=== PATIENT | female | born 1970 | race Two or more races ===

== ENCOUNTER → 2016-05-11 | Outpatient (CLI) | payer BC ==
--- NOTE | 2016-05-12 08:50 | MM ---
Reason for exam: screening (asymptomatic). History: Patient is postmenopausal and is nulliparous. Family history of breast cancer in maternal aunt. Physical Findings: A clinical breast exam by your physician is recommended on an annual basis and results should be correlated with mammographic findings. MG Screening Mammo w CAD Bilateral CC and MLO view(s) were taken. There are scattered fibroglandular densities. No significant changes when compared with prior studies. ASSESSMENT: Benign, BI-RAD 2 RECOMMENDATION: Routine screening mammogram of both breasts in 1 year.
== END ==
LOC: RADMAMWWP 13:04
PROVIDERS: ATTEND Family Medicine
DX: Z12.31 Encounter for screening mammogram for malignant neoplasm of breast (principal)

== ENCOUNTER → 2017-05-02 | Outpatient (CLI) | payer BC ==
--- NOTE | 2017-05-02 08:07 | CT ---
EXAMINATION TYPE: CT abdomen pelvis wo con DATE OF EXAM: 05/02/2017 COMPARISON: NONE HISTORY: abn US, bloating CT DLP: 1370 mGycm Examination of the solid and hollow viscera is limited given the lack of contrast. FINDINGS: LUNG BASES: No evidence for nodule. No evidence for infiltrate. LIVER/GB: Mild hepatic steatosis suggested. The gallbladder is unremarkable. No space-occupying hepat ic lesion. PANCREAS: No pancreatic mass identified. No inflammatory process seen. SPLEEN: The spleen is mildly enlarged at 13.2 cm craniocaudal dimension. No intrasplenic lesions seen . ADRENALS: No adrenal nodules identified. No evidence for thickening. KIDNEYS: No evidence for renal mass. No nephrolithiasis. No hydronephrosis. BOWEL: Appendix has a normal appearance. No evidence of bowel obstruction. No inflammatory process. Lymph nodes: No evidence for adenopathy greater than 1 cm. Abdominal aorta: Atheromatous changes seen. No evidence for aneurysm. Genital organs: No significant abnormality. Other: No significant abnormality. IMPRESSION: 1. Mild splenomegaly. 2. Fatty hepatic infiltration.
== END | disposition home or self-care (01) ==
LOC: RADCTMAIN 07:31
PROVIDERS: ATTEND Family Medicine
DX: R16.1 Splenomegaly, not elsewhere classified (principal); K76.0 Fatty (change of) liver, not elsewhere classified
CPT/HCPCS: 74176

== ENCOUNTER → 2018-01-09 | Outpatient (CLI) | payer BC ==
--- NOTE | 2018-01-09 23:32 | US ---
EXAMINATION TYPE: US kidneys/renal and bladder DATE OF EXAM: 01/09/2018 COMPARISON: 04/10/2017 CLINICAL HISTORY: 47-year-old female N18.3 Chronic kidney disease, stage 3. Abnormal labs TECHNIQUE: Multiple sonographic images of the kidneys and bladder are obtained. EXAM MEASUREMENTS: Right Kidney: 10.5 x 4.8 x 4.7 cm Left Kidney: 9.2 x 4.0 x 3.9 cm Post Void Residual Volume: 4.6 mL Right Kidney: No hydronephrosis. Left Kidney: There may be mild cortical thinning. No hydronephrosis. Bladder: wnl Bilateral Jets seen: Yes Normal Post Void Residual: Yes Incidental- echogenic liver and enlarged appearing spleen. IMPRESSION: 1. No hydronephrosis. 2. Echogenic liver suggesting hepatic steatosis. The spleen also appears slightly enlarged. A measure ment was not obtained.
== END ==
LOC: RADUSWWP 16:09
PROVIDERS: ATTEND Family Medicine
DX: N18.3 Chronic kidney disease, stage 3 (moderate) (principal)
CPT/HCPCS: 76770

== ENCOUNTER 2018-02-03 19:42 | Inpatient (IN) | payer BC ==
[2018-02-03] MEDS ORDERED: VANCOMYCIN 2,000 MG in SODIUM CHLORIDE 0.9% 500 ML IVPB STA (21:54)
--- NOTE | 2018-02-03 21:58 | ED ---
General Adult HPI - General Chief complaint: Wound/Laceration Stated complaint: Lt great toe infection Source: patient Mode of arrival: ambulatory Limitations: no limitations - History of Present Illness Initial comments: Dictation was produced using Pyreg dictation software. please excuse any grammatical, word or spelling errors. Chief Complaint: 47-year-old female with multiple comorbidities presents with left great toe wound. History of Present Illness: Patient has been managed outpatient. She was scheduled to have a wound clinic appointment. She states that she's been having constitutional symptoms. She states that her total is getting worse more painful. She also having fevers and chills. Pulmonary come to the emergency department. Patient's past medical history of asthma and diabetes. The ROS documented in this emergency department record has been reviewed and confirmed by me. Those systems with pertinent positive or negative responses have been documented in the HPI. All other systems are other negative and/or noncontributory. - Related Data Allergies Allergy/AdvReac Type Severity Reaction Status Date / Time banana Allergy Nausea & Verified 02/03/18 19:49 Vomiting latex Allergy Rash/Hives Verified 02/03/18 19:49 mushroom Allergy Nausea & Verified 02/03/18 19:49 Vomiting Penicillins Allergy Rash/Hives Verified 02/03/18 19:49 Review of Systems ROS Statement: Those systems with pertinent positive or pertinent negative responses have been documented in the HPI. ROS Other: All systems not noted in ROS Statement are negative. Past Medical History Past Medical History: Asthma, Diabetes Mellitus History of Any Multi-Drug Resistant Organisms: None Reported Additional Past Surgical History / Comment(s): fifth digit amputation Past Psychological History: No Psychological Hx Reported Smoking Status: Never smoker Past Alcohol Use History: Rare Past Drug Use History: None Reported General Exam - General Exam Comments Initial Comments: PHYSICAL EXAM: General Impression: Alert and oriented x3, not in acute distress HEENT: Normocephalic atraumatic, extra-ocular movements intact, pupils equal and reactive to light bilaterally, mucous membranes moist. Cardiovascular: Heart regular rate and rhythm, S1&S2 audible, no murmurs, rubs or gallops Chest: Lungs clear to auscultation bilaterally, no rhonchi, no wheeze, no rales Abdomen: Bowel sounds present, abdomen soft, non-tender, non-distended, no organomegaly Musculoskeletal: Pulses present and equal in all extremities, no peripheral edema Motor: Power 5/5 bilaterally, no focal deficits noted Neurological: CN II-XII grossly intact, no focal motor or sensory deficits noted Skin: Intact with no visualized rashes Psych: Normal affect and mood Left foot: Large wound to the left great toe with open wound to the medial aspect. Metatarsal heads are erythematous. Limitations: no limitations Course Vital Signs 02/03/18 02/03/18 02/03/18 19:45 21:14 23:52 Temperature 99.4 F 100.6 F H 99.1 F Pulse Rate 103 H 89 90 Respiratory 16 16 16 Rate Blood Pressure 129/72 152/69 148/66 O2 Sat by Pulse 99 97 97 Oximetry Medical Decision Making - Medical Decision Making ED course:-year-old female presents with toe wound failed outpatient treatment. Vital signs upon arrival shows low-grade fever of 100.6, rest of vital signs within normal limits. Click or presentation consistent with toe infection. Differential includes osseum myelitis versus gangrene. Patient started on antibiotics. Labs and x-ray.Laboratory evaluation obtained. Leukocytosis of 11.9. Hemoglobin stable. Rest of CBC unremarkable. Coag panel is unremarkable. Metabolic panel shows hyperglycemia 386. No acidosis noted however there is a mild gap. Creatinine is 1.55. No old renal markers for comparison. Urinalysis shows 4+ glucose. Rest of urinalysis is negative. Patient started on antibiotics to treat osteomyelitis. Patient to be admitted. She is likely candidate for podiatry versus orthopedic consultation for possible admission.X-ray obtained showing findings consistent with osteomyelitis - Lab Data Result diagrams: 02/03/18 22:14 02/03/18 22:14 Lab Results 02/03/18 02/03/18 02/03/18 Range/Units 22:14 22:14 22:14 WBC 11.9 H (3.8-10.6) k/uL RBC 3.56 L (3.80-5.40) m/uL Hgb 11.2 L (11.4-16.0) gm/dL Hct 32.2 L (34.0-46.0) % MCV 90.4 (80.0-100.0) fL MCH 31.4 (25.0-35.0) pg MCHC 34.8 (31.0-37.0) g/dL RDW 12.8 (11.5-15.5) % Plt Count 262 (150-450) k/uL Neutrophils % 82 % Lymphocytes % 10 % Monocytes % 6 % Eosinophils % 1 % Basophils % 0 % Neutrophils # 9.7 H (1.3-7.7) k/uL Lymphocytes # 1.2 (1.0-4.8) k/uL Monocytes # 0.7 (0-1.0) k/uL Eosinophils # 0.1 (0-0.7) k/uL Basophils # 0.0 (0-0.2) k/uL PT (9.0-12.0) sec INR (<1.2) APTT (22.0-30.0) sec Sodium 134 L (137-145) mmol/L Potassium 3.6 (3.5-5.1) mmol/L Chloride 92 L (98-107) mmol/L Carbon Dioxide 29 (22-30) mmol/L Anion Gap 13 mmol/L BUN 47 H (7-17) mg/dL Creatinine 1.55 H (0.52-1.04) mg/dL Est GFR (CKD-EPI)AfAm 45 (>60 ml/min/1.73 sqM) Est GFR (CKD-EPI)NonAf 39 (>60 ml/min/1.73 sqM) Glucose 386 H (74-99) mg/dL Plasma Lactic Acid Ramon 1.2 (0.7-2.0) mmol/L Calcium 9.2 (8.4-10.2) mg/dL Total Bilirubin 0.6 (0.2-1.3) mg/dL AST 20 (14-36) U/L ALT 28 (9-52) U/L Alkaline Phosphatase 97 (38-126) U/L Total Protein 6.9 (6.3-8.2) g/dL Albumin 3.6 (3.5-5.0) g/dL Urine Color Urine Appearance (Clear) Urine pH (5.0-8.0) Ur Specific [place] (1.001-1.035) Urine Protein (Negative) Urine Glucose (UA) (Negative) Urine Ketones (Negative) Urine Blood (Negative) Urine Nitrite (Negative) Urine Bilirubin (Negative) Urine Urobilinogen (<2.0) mg/dL Ur Leukocyte Esterase (Negative) Urine RBC (0-5) /hpf Urine WBC (0-5) /hpf Ur Squamous Epith Cells (0-4) /hpf Urine Bacteria (None) /hpf Urine Mucus (None) /hpf 02/03/18 02/03/18 Range/Units 22:14 22:22 WBC (3.8-10.6) k/uL RBC (3.80-5.40) m/uL Hgb (11.4-16.0) gm/dL Hct (34.0-46.0) % MCV (80.0-100.0) fL MCH (25.0-35.0) pg MCHC (31.0-37.0) g/dL RDW (11.5-15.5) % Plt Count (150-450) k/uL Neutrophils % % Lymphocytes % % Monocytes % % Eosinophils % % Basophils % % Neutrophils # (1.3-7.7) k/uL Lymphocytes # (1.0-4.8) k/uL Monocytes # (0-1.0) k/uL Eosinophils # (0-0.7) k/uL Basophils # (0-0.2) k/uL PT 10.9 (9.0-12.0) sec INR 1.1 (<1.2) APTT 27.0 (22.0-30.0) sec Sodium (137-145) mmol/L Potassium (3.5-5.1) mmol/L Chloride (98-107) mmol/L Carbon Dioxide (22-30) mmol/L Anion Gap mmol/L BUN (7-17) mg/dL Creatinine (0.52-1.04) mg/dL Est GFR (CKD-EPI)AfAm (>60 ml/min/1.73 sqM) Est GFR (CKD-EPI)NonAf (>60 ml/min/1.73 sqM) Glucose (74-99) mg/dL Plasma Lactic Acid Ramon (0.7-2.0) mmol/L Calcium (8.4-10.2) mg/dL Total Bilirubin (0.2-1.3) mg/dL AST (14-36) U/L ALT (9-52) U/L Alkaline Phosphatase (38-126) U/L Total Protein (6.3-8.2) g/dL Albumin (3.5-5.0) g/dL Urine Color Yellow Urine Appearance Clear (Clear) Urine pH 5.5 (5.0-8.0) Ur Specific [place] 1.012 (1.001-1.035) Urine Protein Trace H (Negative) Urine Glucose (UA) 4+ H (Negative) Urine Ketones Negative (Negative) Urine Blood Trace H (Negative) Urine Nitrite Negative (Negative) Urine Bilirubin Negative (Negative) Urine Urobilinogen <2.0 (<2.0) mg/dL Ur Leukocyte Esterase Negative (Negative) Urine RBC 1 (0-5) /hpf Urine WBC 1 (0-5) /hpf Ur Squamous Epith Cells 1 (0-4) /hpf Urine Bacteria Rare H (None) /hpf Urine Mucus Rare H (None) /hpf Disposition Clinical Impression: Osteomyelitis Disposition: ADMITTED IP TO THIS [facility] Condition: Fair Referrals: Shari Rincon MD [Primary Care Provider] - 1-2 days Decision Time: 00:15
[2018-02-03] MEDS ORDERED: CEFEPIME 2 GM in SODIUM CHLORIDE 0.9% 50 ML IVPB STA (22:25)
--- NOTE | 2018-02-03 22:26 | XR ---
EXAMINATION TYPE: XR foot complete LT DATE OF EXAM: 02/03/2018 COMPARISON: NONE HISTORY: Foot pain TECHNIQUE: 3 views FINDINGS: There are plantar and Achilles calcaneal spurs. There is soft tissue swelling of the big to e. There are some destructive changes in the distal phalanx of the big toe. There is soft tissue air around the IP joint and proximal phalanx of the big toe. IMPRESSION: Soft tissue air with soft tissue swelling and destructive changes consistent with osteomy elitis of the distal phalanx big toe left foot.
[2018-02-03 22:27] LABS: Basophils % (A) 0 %; Eosinophils # (A) 0.1 k/uL (0-0.7); Eosinophils % (A) 1 %; HCT 32.2 % (34.0-46.0); HGB 11.2 gm/dL (11.4-16.0); Lymphocytes # (A) 1.2 k/uL (1.0-4.8); Lymphocytes % (A) 10 %; MCH 31.4 pg (25.0-35.0); MCHC 34.8 g/dL (31.0-37.0); MCV 90.4 fL (80.0-100.0); Mean Platelet Volume 6.9; Monocytes # (A) 0.7 k/uL (0-1.0); Monocytes % (A) 6 %; Neutrophils # (A) 9.7 k/uL (1.3-7.7); Neutrophils % (A) 82 %; Platelet Count 262 k/uL (150-450); RBC 3.56 m/uL (3.80-5.40); RDW 12.8 % (11.5-15.5); WBC 11.9 k/uL (3.8-10.6)
[2018-02-03] MEDS: SODIUM CHLORIDE 0.9% 500 ML 500 ML IV SCH ×2 (22:29→23:01)
[2018-02-03 22:35] LABS: INR 1.1 (<1.2); Prothrombin Time 10.9 sec (9.0-12.0)
[2018-02-03 22:46] LABS: Albumin 3.6 g/dL (3.5-5.0); Calcium 9.2 mg/dL (8.4-10.2); Potassium 3.6 mmol/L (3.5-5.1); Total Bilirubin 0.6 mg/dL (0.2-1.3); Total Protein 6.9 g/dL (6.3-8.2)
[2018-02-03 23:23] LABS: Appearance,Urine Clear (Clear); Bacteria,Urine Rare /hpf; Bilirubin,Urine Negative (Negative); Blood,Urine Trace (Negative); Color,Urine Yellow; Glucose,Urine (UA) 4+ (Negative); Ketones,Urine Negative (Negative); Leukocyte Esterase,Urine Negative (Negative); Mucus,Urine Rare /hpf; Nitrite,Urine Negative (Negative); PH, Urine 5.5 (5.0-8.0); Protein,Urine Trace (Negative); RBC,Urine 1 /hpf (0-5); Specific Gravity,Urine 1.012 (1.001-1.035); Squamous Epithelial Cell,Urine 1 /hpf (0-4); Urobilinogen,Urine <2.0 mg/dL (<2.0); WBC,Urine 1 /hpf (0-5)
[2018-02-03] MEDS ORDERED: MORPHINE SULFATE 2 MG/ML SYRINGE IVP STA (23:54)
[2018-02-04] MEDS ORDERED: NALOXONE 0.4 MG/ML 1 ML VIAL IV PRN (00:13)
[2018-02-04] MEDS ORDERED: INSULIN REGULAR 100 UNIT/ML VIAL IV ONE (00:30)
[2018-02-04 01:52] LABS: Glucose,Whole Blood 285 mg/dL (75-99)
[2018-02-04] MEDS ORDERED: INSULIN ASPART 100 UNIT/ML 1 ML 10 ML VIAL SQ ONE (01:56)
[2018-02-04 02:10] VITALS: BMI 42.3
[2018-02-04] MEDS: HYDROcodone/APAP 5-325MG 1 EACH TAB PO PRN ×3 (02:14→17:51)
[2018-02-04 08:17] LABS: Glucose,Whole Blood 277 mg/dL (75-99)
[2018-02-04] MEDS: INSULIN ASPART 100 UNIT/ML 1 ML 10 ML VIAL SQ SCH ×4 (08:46→21:52)
[2018-02-04] MEDS: REPAGLINIDE 1 MG TAB PO SCH ×2 (13:10→17:51)
[2018-02-04 13:16] LABS: Glucose,Whole Blood 297 mg/dL (75-99)
--- NOTE | 2018-02-04 13:50 | P.HPIM ---
History of Present Illness H&P Date: 02/04/18 This is a 47-year-old female who presented to the emergency room complaining of pain in her left great toe. Patient states that she has been treated outpatient leave for an infection of the left great toe. However yesterday the pain increased unable to tolerate weight bearing and also complains of a fever at that time. Patient is scheduled to see wound care, however, due to a back log she is on a waiting list. Patient has a history of diabetes and a history of amputation to the right fifth toe approximately 5 years ago. She states that her diabetes has been under control her last hemoglobin A1c was 7.2. 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 She states that she does have good shoes, however, within the callus started she did change shoes to help relieve the pressure. X- ray of the foot shows soft tissue air with soft tissue swelling and destructive changes consistent with osteomyelitis of the distal phalanx good toe left foot. Patient presents today resting comfortably without any complaints. Dressing to the left great toe in place. Dressing removed showing edematous, ecchymosis, open sore to left great toe with induration approximately 2 cm in the dorsal foot area patient denies any chest pain, difficulty breathing, nausea or vomiting. Patient denies any fevers at this time. Review of Systems Constitutional: Reports fever, Denies malaise, Denies weakness Ears, nose, mouth and throat: Denies headache, Denies sinus pain, Denies sore throat, Denies vertigo Cardiovascular: Denies chest pain, Denies dyspnea on exertion, Denies irregular heart beat, Denies lightheadedness, Denies palpitations Respiratory: Denies cough, Denies dyspnea Gastrointestinal: Denies change in bowel habits, Denies diarrhea, Denies hematemesis, Denies loss of appetite, Denies nausea, Denies vomiting Genitourinary: Denies hematuria, Denies urgency, Denies urinary frequency Musculoskeletal: Reports as per HPI (Painted of left great toe), Denies leg numbness/tingling, Denies low back pain (Chronic), Denies muscle cramps, Denies myalgias Integumentary: Reports wounds (Left great toe), Denies pruritus, Denies rash Neurological: Denies gait dysfunction, Denies migraines, Denies numbness, Denies syncope Psychiatric: Denies anxiety, Denies insomnia, Denies sadness/tearfulness Endocrine: Denies excessive thirst, Denies fatigue, Denies polyuria Past Medical History Past Medical History: Asthma, Diabetes Mellitus, Hyperlipidemia, Hypertension Additional Past Medical History / Comment(s): Fell a few years ago and it caused chronic back pain, right wrist carpal tunnel (wears brace), previous reports from imaging tests state CKD stage 3 (patient unsure of this diagnosis) , DM type 2. History of Any Multi-Drug Resistant Organisms: None Reported Additional Past Surgical History / Comment(s): Fifth digit amputation right foot , oral surgery. Past Psychological History: No Psychological Hx Reported, Depression Additional Psychological History / Comment(s): Pt. lives at home with . Able to carry out ADLs independently. 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 Past Drug Use History: None Reported - Past Family History Mother Family Medical History: Dementia, Diabetes Mellitus Father Family Medical History: Cancer (Stomach), Coronary Artery Disease (CAD), Deep Vein Thrombosis (DVT) Additional Family Medical History / Comment(s): Quadruple bypass. One brother and sister both healthy. No children Medications and Allergies Home Medications Medication Instructions Recorded Confirmed Type Ascorbic Acid [Vitamin C] 1,000 mg PO DAILY 02/04/18 02/04/18 History Atorvastatin [Lipitor] 40 mg PO DAILY@0900 02/04/18 02/04/18 History Budesonide-Formot 160-4.5 Mcg 160 mcg INHALATION BID 02/04/18 02/04/18 History [Symbicort 160-4.5 Mcg Inhaler] Cholecalciferol (Vitamin D3) 5,000 unit PO DAILY 02/04/18 02/04/18 History [Vitamin D3] Cranberry Fruit Extract [Cranberry] 500 mg PO DAILY 02/04/18 02/04/18 History FLUoxetine HCL 10 mg PO DAILY@0900 02/04/18 02/04/18 History Folic Acid 0.8 mg PO DAILY 02/04/18 02/04/18 History HYDROcodone/APAP 5-325MG [[place] 5 - 325 mg PO TID PRN 02/04/18 02/04/18 History 5-325] Insulin Glargine,Hum.rec.anlog See Protocol SQ AC-TID 02/04/18 02/04/18 History [Ameya [place]] Magnesium 250 mg PO DAILY 02/04/18 02/04/18 History Milk Thistle 1,000 mg PO DAILY 02/04/18 02/04/18 History Potassium 99 mg PO DAILY 02/04/18 02/04/18 History Repaglinide [Prandin] 3 mg PO AC-TID 02/04/18 02/04/18 History Vitamin C/Biotin [Hair, Skin and 1 each PO DAILY 02/04/18 02/04/18 History Nails] buPROPion SR [Wellbutrin Sr] 200 mg PO BID 02/04/18 02/04/18 History hydrALAZINE HCL 25 mg PO BID 02/04/18 02/04/18 History Allergies Allergy/AdvReac Type Severity Reaction Status Date / Time banana Allergy Nausea & Verified 02/03/18 19:49 Vomiting latex Allergy Rash/Hives Verified 02/03/18 19:49 mushroom Allergy Nausea & Verified 02/03/18 19:49 Vomiting Penicillins Allergy Rash/Hives Verified 02/03/18 19:49 Physical Exam Vitals: Vital Signs Temp Pulse Pulse Resp BP BP Pulse Ox 02/04/18 08:00 78 18 02/04/18 06:17 99 F 78 18 123/75 97 02/04/18 01:00 97.8 F 90 14 142/82 97 02/03/18 23:52 99.1 F 90 16 148/66 97 02/03/18 21:14 100.6 F H 89 16 152/69 97 02/03/18 19:45 99.4 F 103 H 16 129/72 99 Intake and Output 02/03/18 02/04/18 02/04/18 22:59 06:59 14:59 Other: Voiding Method Toilet Toilet # Voids 1 Weight 117.934 kg 119 kg Gen: This is a 47-year-old female, in no acute distress, obese, cooperative HEENT: Head is atraumatic, normocephalic. Pupils equal, round. Sclerae is anicteric. NECK: Supple. No JVD. No lymphadenopathy. No thyromegaly. LUNGS: Clear to auscultation. No wheezes or rhonchi. No intercostal retractions. HEART: Regular rate and rhythm. No murmur. ABDOMEN: Soft. Bowel sounds are present. No masses. No tenderness. EXTREMITIES: No pedal edema. No calf tenderness. Left great toe edematous, ecchymosis and open lesion noted to lateral portion, induration noted 2 cm to dorsal foot. NEUROLOGICAL: Patient is awake, alert and oriented x3. Cranial nerves 2 through 12 are grossly intact. Results CBC & Chem 7: 02/03/18 22:14 02/03/18 22:14 Labs: Abnormal Lab Results - Last 24 Hours (Table) 02/03/18 02/03/18 02/03/18 Range/Units 22:14 22:14 22:22 WBC 11.9 H (3.8-10.6) k/uL RBC 3.56 L (3.80-5.40) m/uL Hgb 11.2 L (11.4-16.0) gm/dL Hct 32.2 L (34.0-46.0) % Neutrophils # 9.7 H (1.3-7.7) k/uL Sodium 134 L (137-145) mmol/L Chloride 92 L (98-107) mmol/L BUN 47 H (7-17) mg/dL Creatinine 1.55 H (0.52-1.04) mg/dL Glucose 386 H (74-99) mg/dL POC Glucose (mg/dL) (75-99) mg/dL Urine Protein Trace H (Negative) Urine Glucose (UA) 4+ H (Negative) Urine Blood Trace H (Negative) Urine Bacteria Rare H (None) /hpf Urine Mucus Rare H (None) /hpf 02/04/18 02/04/18 Range/Units 01:48 08:14 WBC (3.8-10.6) k/uL RBC (3.80-5.40) m/uL Hgb (11.4-16.0) gm/dL Hct (34.0-46.0) % Neutrophils # (1.3-7.7) k/uL Sodium (137-145) mmol/L Chloride (98-107) mmol/L BUN (7-17) mg/dL Creatinine (0.52-1.04) mg/dL Glucose (74-99) mg/dL POC Glucose (mg/dL) 285 H 277 H (75-99) mg/dL Urine Protein (Negative) Urine Glucose (UA) (Negative) Urine Blood (Negative) Urine Bacteria (None) /hpf Urine Mucus (None) /hpf Microbiology - Last 24 Hours (Table) 02/03/18 22:22 Urine Culture - Preliminary Urine,Clean Catch 02/03/18 22:35 Wound Culture - Preliminary Toe - Left First Thrombosis Risk Factor Assmnt - Choose All That Apply Any of the Below Risk Factors Present?: Yes Each Factor Represents 1 point: Age 41-60 years, Obesity (BMI >25) Other Risk Factors: Yes Each Risk Factor Represents 3 Points: Family history of DVT/PE, History of DVT/ PE Other congenital or acquired thrombophilia - If yes, enter type in comment: No Thrombosis Risk Factor Assessment Total Risk Factor Score: 8 Thrombosis Risk Factor Assessment Level: High Risk Assessment and Plan Plan: 1. Osteomyelitis secondary to diabetic foot ulcer with pressure component, continue with vancomycin, pain management of [place], will consult Dr. Sánchez for wound care/infectious disease. 2. Diabetes mellitus continue with Prandin 3 mg 3 times a day, Levemir 40 units at bedtime, NovoLog sliding scale before meals and at bedtime 3. Hypertension continue hydralazine 25 mg daily 4. Hyperlipidemia continue with Lipitor 40 mg daily 5. Depression continue with fluoxetine 10 mg daily, Wellbutrin 200 mg twice a day. 6. DVT prophylaxis, ambulation Patient will admitted for a minimal of 2 nights day. Ex Discharge plan: More than likely home
[2018-02-04] MEDS: ERTAPENEM 1 GM in SODIUM CHLORIDE 0.9% 50 ML IVPB SCH (17:28)
[2018-02-04 17:35] LABS: Glucose,Whole Blood 234 mg/dL (75-99)
[2018-02-04] MEDS: DOCUSATE 100 MG CAP PO PRN (17:51)
[2018-02-04] MEDS: SYMBICORT 160-4.5 MCG INHALER INHALATION SCH (21:05)
[2018-02-04 21:45] LABS: Glucose,Whole Blood 176 mg/dL (75-99)
[2018-02-04] MEDS: hydrALAZINE HCL 25 MG TAB PO SCH (21:51)
[2018-02-04] MEDS: buPROPion SR 100 MG TABLET.ER PO SCH (21:51)
[2018-02-04] MEDS: INSULIN DETEMIR 100 UNIT/ML 10 ML VIAL SQ SCH (21:52)
--- NOTE | 2018-02-04 23:10 | P.CONS ---
History of Present Illness - Reason for Consult Consult date: 02/04/18 - Chief Complaint Swelling pain drainage of great toe - History of Present Illness 47-year-old female with long-standing history of diabetes mellitus type 2 who has had prior complication of the right foot fifth toe amputation presents to Hospital with a many week history of increasing difficulties to her left great toe. The patient relates she has a callus that is given her trouble over many months. Recently though the calluses become more problematic she then noticed that there was some drainage. However in the days before hospitalization the toe did change it became more swollen if she developed some pain and discomfort there developed some drainage and constantly sought attention. Because of the significant changes to the toe the infectious diseases consultation was requested. The patient does feel somewhat poorly related to the toe. She has a temperature of 100.6 with a is that there is a leukocytosis. She has denying chills or rigors at this time but does not feel very well. She relates that she does occasionally follow with family practice doctor where some paring of callus occurs but this has not been done recently. Review of Systems 47-year-old female feels poorly low-grade fever and pain to the foot. HEENT:Denies headache or acute visual change. Denies sinus or mouth discomforts. Denies neck stiffness or pain. Denies significant oral cavity pain. Denies difficulty on swallowing. Lungs: Denies significant shortness of breath, cough, sputum production, or hemoptysis. Cardiovascular: Denies significant shortness of breath, chest pain, chest wall pain, orthopnea, dyspnea on exertion, syncope Gastrointestinal:Denies nausea, vomiting, diarrhea, constipation, hematemesis, melena, hematochezia. No no significant change of bowel habit noticed. Musculoskeletal: As per the HPI swelling pain and drainage to left great toe Skin: Denies new rash or lesions. No new ulcers or wounds are related.. Neuro: Denies headache or visual change. Denies any new onset weakness or difficulty with ambulation. Denies falls or seizures. Psychiatric:Denies anxiety or depression. Endocrine: Denies significant fatigue, denies significant weight loss or weight gain. Past Medical History Past Medical History: Asthma, Diabetes Mellitus, Hyperlipidemia, Hypertension Additional Past Medical History / Comment(s): Fell a few years ago and it caused chronic back pain, right wrist carpal tunnel (wears brace), previous reports from imaging tests state CKD stage 3 (patient unsure of this diagnosis) , DM type 2. History of Any Multi-Drug Resistant Organisms: None Reported Additional Past Surgical History / Comment(s): Fifth digit amputation right foot , oral surgery. Past Psychological History: No Psychological Hx Reported, Depression Additional Psychological History / Comment(s): Pt. lives at home with . Able to carry out ADLs independently. 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 lifelong nonsmoker. No stated alcohol use. No experience. No international travel. No new animal exposures Smoking Status: Never smoker Past Alcohol Use History: None Reported Additional Past Alcohol Use History / Comment(s): States she stopped smoking 20 years ago. Past Drug Use History: None Reported - Past Family History Mother Family Medical History: Dementia, Diabetes Mellitus Father Family Medical History: Cancer (Stomach), Coronary Artery Disease (CAD), Deep Vein Thrombosis (DVT) Additional Family Medical History / Comment(s): Quadruple bypass. One brother and sister both healthy. No children Medications and Allergies Home Medications and Allergies Comment(s): Current Medications Hydrocodone Bitart/Acetaminophen ([place] 5-325) 1 each PO TID PRN PRN Reason: Pain Last Admin: 02/04/18 17:51 Dose: 1 each Ascorbic Acid (Vitamin C) 1,000 mg PO DAILY [facility] Atorvastatin Calcium (Lipitor) 40 mg PO DAILY@0900 [facility] Budesonide/Formoterol Fumarate (Symbicort 160-4.5 Mcg Inhaler) 2 puff INHALATION RT-BID [facility] Last Admin: 02/04/18 21:05 Dose: 2 puff Bupropion HCl (Wellbutrin Sr) 200 mg PO BID [facility] Last Admin: 02/04/18 21:51 Dose: 200 mg Cholecalciferol (Vitamin D3) 5,000 unit PO DAILY [facility] Docusate Sodium (Colace) 100 mg PO DAILY PRN PRN Reason: Constipation Last Admin: 02/04/18 17:51 Dose: 100 mg Fluoxetine HCl (Prozac) 10 mg PO DAILY@0900 [facility] Folic Acid (Folic Acid) 1 mg PO DAILY [facility] Hydralazine HCl (Apresoline) 25 mg PO BID [facility] Last Admin: 02/04/18 21:51 Dose: 25 mg Ertapenem 1 gm/ Sodium (Chloride) 50 mls @ 100 mls/hr IVPB Q24HR@1600 [facility]; Protocol Last Admin: 02/04/18 17:28 Dose: 100 mls/hr Insulin Aspart (Novolog) 0 unit SQ ACHS [facility]; Protocol Last Admin: 02/04/18 21:52 Dose: 3 unit Insulin Detemir (Levemir) 40 unit SQ HS [facility] Last Admin: 02/04/18 21:52 Dose: 40 unit Magnesium Oxide (Mag-Ox) 400 mg PO DAILY [facility] Naloxone HCl (Narcan) 0.2 mg IV Q2M PRN PRN Reason: Opioid Reversal Repaglinide (Prandin) 3 mg PO AC-TID [facility] Last Admin: 02/04/18 17:51 Dose: 3 mg Home Medications Medication Instructions Recorded Confirmed Type Ascorbic Acid [Vitamin C] 1,000 mg PO DAILY 02/04/18 02/04/18 History Atorvastatin [Lipitor] 40 mg PO DAILY@0900 02/04/18 02/04/18 History Budesonide-Formot 160-4.5 Mcg 320 mcg INHALATION BID 02/04/18 02/04/18 History [Symbicort 160-4.5 Mcg Inhaler] Cholecalciferol (Vitamin D3) 5,000 unit PO DAILY 02/04/18 02/04/18 History [Vitamin D3] Cranberry Fruit Extract [Cranberry] 500 mg PO DAILY 02/04/18 02/04/18 History FLUoxetine HCL 10 mg PO DAILY@0900 02/04/18 02/04/18 History Folic Acid 0.8 mg PO DAILY 02/04/18 02/04/18 History Insulin Glargine,Hum.rec.anlog See Protocol SQ AC-TID 02/04/18 02/04/18 History [Toujeo Solostar] Inulin/Chromium Picolinate [Fiber 1 tab PO DAILY 02/04/18 02/04/18 History Gummies Chew] Magnesium 250 mg PO DAILY 02/04/18 02/04/18 History Milk Thistle 1,000 mg PO DAILY 02/04/18 02/04/18 History Potassium 99 mg PO DAILY 02/04/18 02/04/18 History Repaglinide [Prandin] 3 mg PO AC-TID 02/04/18 02/04/18 History Vitamin C/Biotin [Hair, Skin and 3 tab PO DAILY 02/04/18 02/04/18 History Nails] buPROPion SR [Wellbutrin Sr] 200 mg PO BID 02/04/18 02/04/18 History hydrALAZINE HCL 25 mg PO BID 02/04/18 02/04/18 History Allergies Allergy/AdvReac Type Severity Reaction Status Date / Time banana Allergy Nausea & Verified 02/04/18 13:29 Vomiting latex Allergy Rash/Hives Verified 02/04/18 13:29 mushroom Allergy Nausea & Verified 02/04/18 13:29 Vomiting Penicillins Allergy Rash/Hives Verified 02/04/18 13:29 Physical Exam Vitals: Vital Signs Temp Pulse Pulse Resp BP BP Pulse Ox 02/04/18 16:00 16 02/04/18 15:00 98.6 F 80 16 137/72 97 02/04/18 08:00 78 18 02/04/18 06:17 99 F 78 18 123/75 97 02/04/18 01:00 97.8 F 90 14 142/82 97 02/03/18 23:52 99.1 F 90 16 148/66 97 Intake and Output 02/04/18 02/04/18 02/04/18 06:59 14:59 22:59 Other: Voiding Method Toilet Toilet Toilet # Voids 1 3 Weight 119 kg 47-year-old female presents to Hospital complaining of pain to the left great toe HEENT: Anicteric conjunctiva are pink and moist nasal mucosa grossly intact without significant lesions, there is no thrush. Neck: The neck is supple without significant lymphadenopathy or thyromegaly. Lungs: Good bilateral air entry without significant crackles or wheezing. There is no significant bronchial sounds. There is no egophony or dullness. Heart: Regular rate and rhythm with an audible S1-S2, no S3 no S4. There is no significant murmur click or rub, PMI was nondisplaced. Abdomen: Positive bowel sounds soft and nontender without palpable masses or organomegaly. There was no guarding or rebound. Extremities: The upper extremities are intact. No lesions are seen. The right lower extremity reveals evidence of no difficulties with the prior right fifth toe amputation the site is well-healed. There is no edema. The left lower extremity reveals evidence of the marked changes to the left great toe. It is swollen, it is with significant erythema and necrosis and foul odor in bony exposure. It is tender to touch manipulation. There is dense erythema that ascends the foot but does not ascend the calf or the thigh. There is no significant left inguinal lymphadenopathy or tenderness in no other abnormal lymph nodes are noted at this time. Neuro: Awake alert oriented to person place and time. There are no acute new gross focal sensory motor deficits. Results CBC & Chem 7: 02/03/18 22:14 02/03/18 22:14 Labs: Abnormal Lab Results - Last 24 Hours (Table) 02/03/18 02/03/18 02/04/18 Range/Units 22:14 22:22 01:48 ESR 101 H (0-20) mm/hr POC Glucose (mg/dL) 285 H (75-99) mg/dL Urine Protein Trace H (Negative) Urine Glucose (UA) 4+ H (Negative) Urine Blood Trace H (Negative) Urine Bacteria Rare H (None) /hpf Urine Mucus Rare H (None) /hpf 02/04/18 02/04/18 02/04/18 Range/Units 08:14 12:51 17:33 ESR (0-20) mm/hr POC Glucose (mg/dL) 277 H 297 H 234 H (75-99) mg/dL Urine Protein (Negative) Urine Glucose (UA) (Negative) Urine Blood (Negative) Urine Bacteria (None) /hpf Urine Mucus (None) /hpf 02/04/18 Range/Units 21:32 ESR (0-20) mm/hr POC Glucose (mg/dL) 176 H (75-99) mg/dL Urine Protein (Negative) Urine Glucose (UA) (Negative) Urine Blood (Negative) Urine Bacteria (None) /hpf Urine Mucus (None) /hpf Microbiology - Last 24 Hours (Table) 02/03/18 22:35 Gram Stain - Preliminary Toe - Left First Wound Culture - Preliminary 02/03/18 22:22 Urine Culture - Preliminary Urine,Clean Catch Laboratory Results WBC 11.9 k/uL (3.8-10.6) H 02/03/18 22:14 RBC 3.56 m/uL (3.80-5.40) L 02/03/18 22:14 Hgb 11.2 gm/dL (11.4-16.0) L 02/03/18 22:14 Hct 32.2 % (34.0-46.0) L 02/03/18 22:14 MCV 90.4 fL (80.0-100.0) 02/03/18 22:14 MCH 31.4 pg (25.0-35.0) 02/03/18 22:14 MCHC 34.8 g/dL (31.0-37.0) 02/03/18 22:14 RDW 12.8 % (11.5-15.5) 02/03/18 22:14 Plt Count 262 k/uL (150-450) 02/03/18 22:14 Neutrophils % 82 % 02/03/18 22:14 Lymphocytes % 10 % 02/03/18 22:14 Monocytes % 6 % 02/03/18 22:14 Eosinophils % 1 % 02/03/18 22:14 Basophils % 0 % 02/03/18 22:14 Neutrophils # 9.7 k/uL (1.3-7.7) H 02/03/18 22:14 Lymphocytes # 1.2 k/uL (1.0-4.8) 02/03/18 22:14 Monocytes # 0.7 k/uL (0-1.0) 02/03/18 22:14 Eosinophils # 0.1 k/uL (0-0.7) 02/03/18 22:14 Basophils # 0.0 k/uL (0-0.2) 02/03/18 22:14 ESR 101 mm/hr (0-20) H 02/03/18 22:14 PT 10.9 sec (9.0-12.0) 02/03/18 22:14 INR 1.1 (<1.2) 02/03/18 22:14 APTT 27.0 sec (22.0-30.0) 02/03/18 22:14 Sodium 134 mmol/L (137-145) L 02/03/18 22:14 Potassium 3.6 mmol/L (3.5-5.1) 02/03/18 22:14 Chloride 92 mmol/L (98-107) L 02/03/18 22:14 Carbon Dioxide 29 mmol/L (22-30) 02/03/18 22:14 Anion Gap 13 mmol/L 02/03/18 22:14 BUN 47 mg/dL (7-17) H 02/03/18 22:14 Creatinine 1.55 mg/dL (0.52-1.04) H 02/03/18 22:14 Est GFR (CKD-EPI)AfAm 45 (>60 ml/min/1.73 sqM) 02/03/18 22:14 Est GFR (CKD-EPI)NonAf 39 (>60 ml/min/1.73 sqM) 02/03/18 22:14 Glucose 386 mg/dL (74-99) H 02/03/18 22:14 POC Glucose (mg/dL) 176 mg/dL (75-99) H 02/04/18 21:32 POC Glu Caretaker ID Britney Oh 02/04/18 21:32 Plasma Lactic Acid Ramon 1.2 mmol/L (0.7-2.0) 02/03/18 22:14 Calcium 9.2 mg/dL (8.4-10.2) 02/03/18 22:14 Total Bilirubin 0.6 mg/dL (0.2-1.3) 02/03/18 22:14 AST 20 U/L (14-36) 02/03/18 22:14 ALT 28 U/L (9-52) 02/03/18 22:14 Alkaline Phosphatase 97 U/L (38-126) 02/03/18 22:14 Total Protein 6.9 g/dL (6.3-8.2) 02/03/18 22:14 Albumin 3.6 g/dL (3.5-5.0) 02/03/18 22:14 Urine Color Yellow 02/03/18 22:22 Urine Appearance Clear (Clear) 02/03/18 22:22 Urine pH 5.5 (5.0-8.0) 02/03/18 22:22 Ur Specific Rosine 1.012 (1.001-1.035) 02/03/18 22:22 Urine Protein Trace (Negative) H 02/03/18 22:22 Urine Glucose (UA) 4+ (Negative) H 02/03/18 22:22 Urine Ketones Negative (Negative) 02/03/18 22:22 Urine Blood Trace (Negative) H 02/03/18 22:22 Urine Nitrite Negative (Negative) 02/03/18 22:22 Urine Bilirubin Negative (Negative) 02/03/18 22:22 Urine Urobilinogen <2.0 mg/dL (<2.0) 02/03/18 22:22 Ur Leukocyte Esterase Negative (Negative) 02/03/18 22:22 Urine RBC 1 /hpf (0-5) 02/03/18 22:22 Urine WBC 1 /hpf (0-5) 02/03/18 22:22 Ur Squamous Epith Cells 1 /hpf (0-4) 02/03/18 22:22 Urine Bacteria Rare /hpf (None) H 02/03/18 22:22 Urine Mucus Rare /hpf (None) H 02/03/18 22:22 Microbiology 02/03/18 22:35 Toe - Left First Gram Stain - Preliminary 02/03/18 22:35 Toe - Left First Wound Culture - Preliminary 02/03/18 22:22 Urine,Clean Catch Urine Culture - Preliminary Comments: Left foot x-ray reviewed revealing evidence of the osteomyelitis of the distal phalanx of the left great toe Assessment and Plan (1) 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 She's trying to improve her diabetes care and is trying to improve her hemoglobin A1c. Presents now with the gangrenous changes left great toe with leukocytosis fever pain and hyperglycemia. The patient has been attempting to care for it but has markedly worsened as far as the infection to the toe now with bony exposure. X- ray reveals evidence of underlying osteomyelitis distally and there is evidence of some gangrenous change already. The plan will be to have the patient evidently by surgery, will likely need amputation of the distal aspect of the great toe given the gangrenous changes the bony destruction and the desire to limit the infection to salvage the first metatarsophalangeal joint to allow adequate ambulation given her age of only 47. Laboratories to be obtained. Maximize protein intake. Ensure she is in a multivitamin. We'll need follow-up with the wound center and appropriate offloading to allow healing postoperatively. Current Visit: Yes Status: Acute Code(s): E08.621 - DIABETES MELLITUS DUE TO UNDERLYING CONDITION W FOOT ULCER; L97.524 - NON-PRS CHRONIC ULCER OTH PRT LEFT FOOT W NECROSIS OF BONE SNOMED Code(s): 734131116 (2) Diabetes mellitus type 2, uncontrolled, with complications Current Visit: Yes Status: Acute Code(s): E11.8 - TYPE 2 DIABETES MELLITUS WITH UNSPECIFIED COMPLICATIONS; E11.65 - TYPE 2 DIABETES MELLITUS WITH HYPERGLYCEMIA SNOMED Code(s): 904009761
[2018-02-05] MEDS: HYDROcodone/APAP 5-325MG 1 EACH TAB PO PRN ×2 (06:41→15:13)
[2018-02-05 07:18] LABS: Glucose,Whole Blood 141 mg/dL (75-99)
[2018-02-05] MEDS: INSULIN ASPART 100 UNIT/ML 1 ML 10 ML VIAL SQ SCH ×4 (07:52→21:18)
[2018-02-05] MEDS: REPAGLINIDE 1 MG TAB PO SCH ×3 (07:52→17:57)
[2018-02-05] MEDS: ATORVASTATIN 40 MG TAB PO SCH (07:53)
[2018-02-05] MEDS: FOLIC ACID 1 MG TAB PO SCH (07:53)
[2018-02-05] MEDS: MAGNESIUM OXIDE 400 MG TAB PO SCH (07:53)
[2018-02-05] MEDS: hydrALAZINE HCL 25 MG TAB PO SCH ×2 (07:53→21:17)
[2018-02-05] MEDS: FLUoxetine HCL 10 MG CAP PO SCH (07:53)
[2018-02-05] MEDS: buPROPion SR 100 MG TABLET.ER PO SCH ×2 (07:53→21:17)
[2018-02-05] MEDS: ASCORBIC ACID 500 MG TAB PO SCH (07:53)
[2018-02-05] MEDS: CHOLECALCIFEROL 1,000 UNIT TAB PO SCH (07:53)
[2018-02-05] MEDS: SYMBICORT 160-4.5 MCG INHALER INHALATION SCH ×2 (08:04→19:48)
[2018-02-05] MEDS ORDERED: MILK THISTLE 1000 MG PO SCH (09:00)
[2018-02-05] MEDS ORDERED: VITAMIN C PO SCH (09:00)
[2018-02-05] MEDS ORDERED: BIOTIN PO SCH (09:00)
[2018-02-05] MEDS ORDERED: NON-FORMULARY DRUG (Cranberry Fruit Extract [Cranberry] 500 MG) PO SCH (09:00)
[2018-02-05 09:57] LABS: Basophils % (A) 0 %; Eosinophils # (A) 0.2 k/uL (0-0.7); Eosinophils % (A) 2 %; HCT 29.2 % (34.0-46.0); HGB 10.2 gm/dL (11.4-16.0); Lymphocytes % (A) 12 %; MCH 31.1 pg (25.0-35.0); MCV 88.7 fL (80.0-100.0); Mean Platelet Volume 6.9; Monocytes # (A) 0.4 k/uL (0-1.0); Monocytes % (A) 5 %; Neutrophils # (A) 6.3 k/uL (1.3-7.7); Neutrophils % (A) 79 %; Platelet Count 255 k/uL (150-450); RBC 3.29 m/uL (3.80-5.40); RDW 12.6 % (11.5-15.5)
[2018-02-05] MEDS: DOCUSATE 100 MG CAP PO PRN (10:07)
[2018-02-05 10:34] LABS: Calcium 9.1 mg/dL (8.4-10.2); Total Bilirubin 0.3 mg/dL (0.2-1.3); Total Protein 6.1 g/dL (6.3-8.2)
[2018-02-05 11:00] LABS: C Reactive Protein 136.5 mg/L (<10.0)
[2018-02-05 12:30] LABS: Glucose,Whole Blood 198 mg/dL (75-99)
--- NOTE | 2018-02-05 14:35 | CONS ---
DATE OF CONSULTATION: 02/05/2018 This is a 47-year-old diabetic female. She has been admitted to [facility] with history of left big toe gangrene for the last 2 weeks. The patient has been admitted and I was consulted for surgical evaluation. The patient was seen by Infectious Disease and patient put on IV antibiotic. MEDICAL HISTORY: History of diabetes, no history of coronary artery disease. PERSONAL HISTORY: ALLERGY TO LATEX and PENICILLIN. SURGICAL HISTORY: Patient had a right fifth toe amputation in the past. PHYSICAL EXAMINATION: Patient was seen in her room. NECK: Supple trachea central. CHEST: Clear to auscultation. ABDOMEN: Soft abdomen vascular examination brachial radial and femoral pulses are present dorsal pedis palpable. Left foot had wet gangrene of the big toe. There is some drainage of pus and also mild to moderate cellulitis noted on the dorsal plantar aspect of the foot. Patient had a CBC showed leukocytosis with low-grade fever. PLAN: Reamputation of the left foot big toe. Risks and complications have been discussed, nonhealing, infection, bleeding. Patient understands. MMODL / IJN: [id number] / MTDNik
[2018-02-05 14:41] LABS: Erythrocyte Sedimentation Rate 114 mm/hr (0-20)
[2018-02-05] MEDS: ERTAPENEM 1 GM in SODIUM CHLORIDE 0.9% 50 ML IVPB SCH (15:14)
--- NOTE | 2018-02-05 15:47 | P.PN ---
<Clarissa Up A - Last Filed: 02/05/18 15:45> Subjective Progress Note Date: 02/05/18 This is a 47-year-old female who presented to the emergency room complaining of pain in her left great toe. Patient states that she has been treated outpatient leave for an infection of the left great toe. However yesterday the pain increased unable to tolerate weight bearing and also complains of a fever at that time. Patient is scheduled to see wound care, however, due to a back log she is on a waiting list. Patient has a history of diabetes and a history of amputation to the right fifth toe approximately 5 years ago. She states that her diabetes has been under control her last hemoglobin A1c was 7.2. 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 She states that she does have good shoes, however, within the callus started she did change shoes to help relieve the pressure. X- ray of the foot shows soft tissue air with soft tissue swelling and destructive changes consistent with osteomyelitis of the distal phalanx good toe left foot. Patient presents today resting comfortably without any complaints. Dressing to the left great toe in place. Dressing removed showing edematous, ecchymosis, open sore to left great toe with induration approximately 2 cm in the dorsal foot area patient denies any chest pain, difficulty breathing, nausea or vomiting. Patient denies any fevers at this time. 02/05: Patient states that she has less redness and edema today. She has been seen by Dr. Sánchez and Dr. Wynn is to see her today. Wound culture is showing group D enterococcus and strep agalactia. She is currently on IV antibiotics in the form of ertapenem and vancomycin. Blood sugars have been running between 141 and 234. Hemoglobin A1c will be ordered. Objective - Vital Signs Vital signs: Vital Signs Temp 98.2 F 02/05/18 06:19 Pulse 86 02/05/18 08:03 Resp 20 02/05/18 06:19 BP 159/80 02/05/18 06:19 Pulse Ox 96 02/05/18 06:19 Intake & Output 02/04/18 02/05/18 02/05/18 18:59 06:59 18:59 Intake Total 300 200 Balance 300 200 Intake: Oral 300 200 Other: Voiding Method Toilet Toilet # Voids 3 1 - Exam Gen: This is a 47-year-old female, in no acute distress, obese, cooperative HEENT: Head is atraumatic, normocephalic. Pupils equal, round. Sclerae is anicteric. NECK: Supple. No JVD. No lymphadenopathy. No thyromegaly. LUNGS: Clear to auscultation. No wheezes or rhonchi. No intercostal retractions. HEART: Regular rate and rhythm. No murmur. ABDOMEN: Soft. Bowel sounds are present. No masses. No tenderness. EXTREMITIES: No pedal edema. No calf tenderness. Left great toe edematous, ecchymosis and open lesion noted to lateral portion, induration noted 2 cm to dorsal foot. NEUROLOGICAL: Patient is awake, alert and oriented x3. Cranial nerves 2 through 12 are grossly intact. - Labs CBC & Chem 7: 02/05/18 09:28 02/05/18 09:28 Labs: Abnormal Lab Results - Last 24 Hours (Table) 02/03/18 02/04/18 02/04/18 Range/Units 22:14 12:51 17:33 RBC (3.80-5.40) m/uL Hgb (11.4-16.0) gm/dL Hct (34.0-46.0) % ESR 101 H (0-20) mm/hr BUN (7-17) mg/dL Creatinine (0.52-1.04) mg/dL Glucose (74-99) mg/dL POC Glucose (mg/dL) 297 H 234 H (75-99) mg/dL C-Reactive Protein (<10.0) mg/L Total Protein (6.3-8.2) g/dL Albumin (3.5-5.0) g/dL 02/04/18 02/05/18 02/05/18 Range/Units 21:32 07:13 09:28 RBC 3.29 L (3.80-5.40) m/uL Hgb 10.2 L (11.4-16.0) gm/dL Hct 29.2 L (34.0-46.0) % ESR (0-20) mm/hr BUN (7-17) mg/dL Creatinine (0.52-1.04) mg/dL Glucose (74-99) mg/dL POC Glucose (mg/dL) 176 H 141 H (75-99) mg/dL C-Reactive Protein (<10.0) mg/L Total Protein (6.3-8.2) g/dL Albumin (3.5-5.0) g/dL 02/05/18 Range/Units 09:28 RBC (3.80-5.40) m/uL Hgb (11.4-16.0) gm/dL Hct (34.0-46.0) % ESR (0-20) mm/hr BUN 31 H (7-17) mg/dL Creatinine 1.31 H (0.52-1.04) mg/dL Glucose 215 H (74-99) mg/dL POC Glucose (mg/dL) (75-99) mg/dL C-Reactive Protein 136.5 H (<10.0) mg/L Total Protein 6.1 L (6.3-8.2) g/dL Albumin 3.0 L (3.5-5.0) g/dL Microbiology - Last 24 Hours (Table) 02/03/18 22:35 Gram Stain - Preliminary Toe - Left First Wound Culture - Preliminary Group D Enterococcus Strep agalactiae - (group b) 02/03/18 22:14 Blood Culture - Preliminary Blood No Growth after 24 hours 02/03/18 22:22 Urine Culture - Preliminary Urine,Clean Catch Assessment and Plan Plan: 1. Osteomyelitis secondary to diabetic foot ulcer with pressure component, continue ertapenem and vancomycin, pain management of [place], consult with Dr. Sánchez appreciated. Dr. Wynn on consult. 2. Diabetes mellitus continue with Prandin 3 mg 3 times a day, Levemir 40 units at bedtime, NovoLog sliding scale before meals and at bedtime 3. Hypertension continue hydralazine 25 mg daily 4. Hyperlipidemia continue with Lipitor 40 mg daily 5. Depression continue with fluoxetine 10 mg daily, Wellbutrin 200 mg twice a day. 6. DVT prophylaxis, ambulation Discharge plan: More than likely home Impression and plan of care have been directed as dictated by the signing physician. Clarissa Up nurse practitioner acting as scribe for signing physician. <Jaime Gandhi - Last Filed: 02/08/18 21:51> Subjective Constitutional: denies weakness, Denies chills, Denies fever Eyes: denies blurred vision, denies pain Ears, nose, mouth and throat: Denies headache, Denies sore throat, Denies vertigo Cardiovascular:denies shortness of breath, Denies chest pain, Denies syncope Respiratory: denies cough, denies dyspnea, Denies cough with sputum, Denies excessive sputum, Denies hemoptysis, Denies home oxygen, Denies wheezing Gastrointestinal: Denies abdominal pain, Denies diarrhea, Denies nausea, Denies vomiting Genitourinary: Denies dysuria, Denies hematuria Musculoskeletal: Denies myalgias endorse s foot pain Integumentary: Denies pruritus, Denies rash Neurological: Denies numbness, Denies weakness Psychiatric: Denies anxiety, Denies depression Endocrine: Denies fatigue, Denies weight change Objective - Vital Signs Vital signs: Vital Signs Temp 98.0 F 02/08/18 15:00 Pulse 80 02/08/18 15:00 Resp 16 02/08/18 16:00 BP 144/85 02/08/18 15:00 Pulse Ox 97 02/08/18 15:00 Intake & Output 02/08/18 02/08/18 02/09/18 06:59 18:59 06:59 Intake Total 500 Balance 500 Intake: Oral 500 Other: Voiding Method Toilet # Voids 2 2 - Labs CBC & Chem 7: 02/07/18 11:21 02/08/18 09:32 Labs: Abnormal Lab Results - Last 24 Hours (Table) 02/08/18 02/08/18 02/08/18 Range/Units 07:12 09:32 12:25 BUN 25 H (7-17) mg/dL Creatinine 1.30 H (0.52-1.04) mg/dL Glucose 145 H (74-99) mg/dL POC Glucose (mg/dL) 105 H 125 H (75-99) mg/dL 02/08/18 02/08/18 Range/Units 17:11 21:27 BUN (7-17) mg/dL Creatinine (0.52-1.04) mg/dL Glucose (74-99) mg/dL POC Glucose (mg/dL) 162 H 148 H (75-99) mg/dL Microbiology - Last 24 Hours (Table) 02/06/18 15:00 Gram Stain - Final Toe - Left First Wound Culture - Final Strep agalactiae - (group b) 02/03/18 22:14 Blood Culture - Preliminary Blood No Growth after 96 hours
[2018-02-05 17:42] LABS: Glucose,Whole Blood 236 mg/dL (75-99)
[2018-02-05 21:00] LABS: Glucose,Whole Blood 314 mg/dL (75-99)
[2018-02-05] MEDS: INSULIN DETEMIR 100 UNIT/ML 10 ML VIAL SQ SCH (21:18)
[2018-02-05] MEDS ORDERED: VANCOMYCIN IV PER PHARMACY 1 EACH MISC MISCELLANE PRN (23:01)
--- NOTE | 2018-02-05 23:02 | P.PN ---
Subjective Progress Note Date: 02/05/18 47-year-old female with long-standing history of diabetes mellitus type 2 who has had prior complication of the right foot fifth toe amputation presents to Hospital with a many week history of increasing difficulties to her left great toe. The patient relates she has a callus that is given her trouble over many months. Recently though the calluses become more problematic she then noticed that there was some drainage. However in the days before hospitalization the toe did change it became more swollen if she developed some pain and discomfort there developed some drainage and constantly sought attention. Because of the significant changes to the toe the infectious diseases consultation was requested. The patient does feel somewhat poorly related to the toe. She has a temperature of 100.6 with a is that there is a leukocytosis. She has denying chills or rigors at this time but does not feel very well. 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 02/05/2018 reveals the 47-year-old woman to be in no acute distress. With antibiotic therapy the extensive swelling erythema to the toe and the foot has had some improvement. The ascending erythema and lymphangitis has shown some improvement. She's having no further fever. We'll have surgery in the near future for the debridement of the gangrenous change to the toe. Objective - Vital Signs Vital signs: Vital Signs Temp 98.4 F 02/05/18 14:38 Pulse 74 02/05/18 15:51 Resp 16 02/05/18 15:51 BP 128/74 02/05/18 14:38 Pulse Ox 96 02/05/18 14:38 Intake & Output 02/05/18 02/05/18 02/06/18 06:59 18:59 06:59 Intake Total 300 200 Balance 300 200 Weight 119 kg Intake: Oral 300 200 Other: Voiding Method Toilet # Voids 1 2 # Bowel Movements 0 - Exam 47-year-old female presents to Hospital complaining of pain to the left great toe HEENT: Anicteric conjunctiva are pink and moist nasal mucosa grossly intact without significant lesions, there is no thrush. Neck: The neck is supple without significant lymphadenopathy or thyromegaly. Lungs: Good bilateral air entry without significant crackles or wheezing. There is no significant bronchial sounds. There is no egophony or dullness. Heart: Regular rate and rhythm with an audible S1-S2, no S3 no S4. There is no significant murmur click or rub, PMI was nondisplaced. Abdomen: Positive bowel sounds soft and nontender without palpable masses or organomegaly. There was no guarding or rebound. Extremities: The upper extremities are intact. No lesions are seen. The right lower extremity reveals evidence of no difficulties with the prior right fifth toe amputation the site is well-healed. There is no edema. The left lower extremity reveals evidence of the marked changes to the left great toe. It is swollen, it is with significant erythema and necrosis and foul odor in bony exposure. It is tender to touch manipulation. The erythema to the foot showed some slight improvement the extensive swelling to the toe has also shown mild improvement. Still large amount of necrotic material There is no significant left inguinal lymphadenopathy or tenderness in no other abnormal lymph nodes are noted at this time. Neuro: Awake alert oriented to person place and time. There are no acute new gross focal sensory motor deficits. - Labs CBC & Chem 7: 02/05/18 09:28 02/05/18 09:28 Labs: Abnormal Lab Results - Last 24 Hours (Table) 02/03/18 02/05/18 02/05/18 Range/Units 22:14 07:13 09:28 RBC 3.29 L (3.80-5.40) m/uL Hgb 10.2 L (11.4-16.0) gm/dL Hct 29.2 L (34.0-46.0) % ESR 114 H (0-20) mm/hr BUN (7-17) mg/dL Creatinine (0.52-1.04) mg/dL Glucose (74-99) mg/dL POC Glucose (mg/dL) 141 H (75-99) mg/dL Hemoglobin A1c 10.0 H (4.0-6.0) % C-Reactive Protein (<10.0) mg/L Total Protein (6.3-8.2) g/dL Albumin (3.5-5.0) g/dL 02/05/18 02/05/18 02/05/18 Range/Units 09:28 12:27 17:40 RBC (3.80-5.40) m/uL Hgb (11.4-16.0) gm/dL Hct (34.0-46.0) % ESR (0-20) mm/hr BUN 31 H (7-17) mg/dL Creatinine 1.31 H (0.52-1.04) mg/dL Glucose 215 H (74-99) mg/dL POC Glucose (mg/dL) 198 H 236 H (75-99) mg/dL Hemoglobin A1c (4.0-6.0) % C-Reactive Protein 136.5 H (<10.0) mg/L Total Protein 6.1 L (6.3-8.2) g/dL Albumin 3.0 L (3.5-5.0) g/dL 02/05/18 Range/Units 20:42 RBC (3.80-5.40) m/uL Hgb (11.4-16.0) gm/dL Hct (34.0-46.0) % ESR (0-20) mm/hr BUN (7-17) mg/dL Creatinine (0.52-1.04) mg/dL Glucose (74-99) mg/dL POC Glucose (mg/dL) 314 H (75-99) mg/dL Hemoglobin A1c (4.0-6.0) % C-Reactive Protein (<10.0) mg/L Total Protein (6.3-8.2) g/dL Albumin (3.5-5.0) g/dL Microbiology - Last 24 Hours (Table) 02/03/18 22:22 Urine Culture - Final Urine,Clean Catch 02/03/18 22:35 Gram Stain - Preliminary Toe - Left First Wound Culture - Preliminary Group D Enterococcus Strep agalactiae - (group b) 02/03/18 22:14 Blood Culture - Preliminary Blood No Growth after 24 hours Laboratory Results WBC 8.0 k/uL (3.8-10.6) 02/05/18 09:28 RBC 3.29 m/uL (3.80-5.40) L 02/05/18 09:28 Hgb 10.2 gm/dL (11.4-16.0) L 02/05/18 09:28 Hct 29.2 % (34.0-46.0) L 02/05/18 09:28 MCV 88.7 fL (80.0-100.0) 02/05/18 09:28 MCH 31.1 pg (25.0-35.0) 02/05/18 09: MCHC 35.0 g/dL (31.0-37.0) 02/05/18: RDW 12.6 % (11.5-15.5) 02/05/18: Plt Count 255 k/uL (150-450) 02/05/18: Neutrophils % 79 % 02/05/18: Lymphocytes % 12 % 02/05/18: Monocytes % 5 % 02/05/18: Eosinophils % 2 % 02/05/18: Basophils % 0 % 02/05/18: Neutrophils # 6.3 k/uL (1.3-7.7) 02/05/18: Lymphocytes # 1.0 k/uL (1.0-4.8) 02/05/18: Monocytes # 0.4 k/uL (0-1.0) 02/05/18: Eosinophils # 0.2 k/uL (0-0.7) 02/05/18: Basophils # 0.0 k/uL (0-0.2) 02/05/18 09: ESR 114 mm/hr (0-20) H 02/05/18 09:28 PT 10.9 sec (9.0-12.0) 02/03/18 22:14 INR 1.1 (<1.2) 02/03/18 22:14 APTT 27.0 sec (22.0-30.0) 02/03/18 22:14 Sodium 137 mmol/L (137-145) 02/05/18 09: Potassium 4.0 mmol/L (3.5-5.1) 02/05/18 09: Chloride 101 mmol/L (98-107) 02/05/18 09:28 Carbon Dioxide 27 mmol/L (22-30) 02/05/18: Anion Gap 9 mmol/L 02/05/18 09:28 BUN 31 mg/dL (7-17) H 02/05/18 09:28 Creatinine 1.31 mg/dL (0.52-1.04) H 02/05/18 09:28 Est GFR (CKD-EPI)AfAm 56 (>60 ml/min/1.73 sqM) 10/08/18 09:28 Est GFR (CKD-EPI)NonAf 48 (>60 ml/min/1.73 sqM) 02/05/18 09:28 Glucose 215 mg/dL (74-99) H 02/05/18 09:28 POC Glucose (mg/dL) 314 mg/dL (75-99) H 02/05/18 20:42 POC Glu Heavy Equipment Field Mechanic ID Dye, Whitney 02/05/18 20:[address] Glu mg/dL 240 02/03/18 22:14 Hemoglobin A1c 10.0 % (4.0-6.0) H 02/03/18 22:14 Plasma Lactic Acid Ramon 1.2 mmol/L (0.7-2.0) 02/03/18 22:14 Calcium 9.1 mg/dL (8.4-10.2) 02/05/18 09:28 Total Bilirubin 0.3 mg/dL (0.2-1.3) 02/05/18 09:28 AST 20 U/L (14-36) 02/05/18 09:28 ALT 30 U/L (9-52) 02/05/18 09:28 Alkaline Phosphatase 77 U/L (38-126) 02/05/18 09:28 C-Reactive Protein 136.5 mg/L (<10.0) H 02/05/18 09:28 Total Protein 6.1 g/dL (6.3-8.2) L 02/05/18 09:28 Albumin 3.0 g/dL (3.5-5.0) L 02/05/18 09:28 Urine Color Yellow 02/03/18 22:22 Urine Appearance Clear (Clear) 02/03/18 22:22 Urine pH 5.5 (5.0-8.0) 02/03/18 22:22 Ur Specific [place] 1.012 (1.001-1.035) 02/03/18 22:22 Urine Protein Trace (Negative) H 02/03/18 22:22 Urine Glucose (UA) 4+ (Negative) H 02/03/18 22:22 Urine Ketones Negative (Negative) 02/03/18 22:22 Urine Blood Trace (Negative) H 02/03/18 22:22 Urine Nitrite Negative (Negative) 10/06/18 22:22 Urine Bilirubin Negative (Negative) 02/03/18 22:22 Urine Urobilinogen <2.0 mg/dL (<2.0) 02/03/18 22:22 Ur Leukocyte Esterase Negative (Negative) 02/03/18 22:22 Urine RBC 1 /hpf (0-5) 02/03/18 22:22 Urine WBC 1 /hpf (0-5) 02/03/18 22:22 Ur Squamous Epith Cells 1 /hpf (0-4) 02/03/18 22:22 Urine Bacteria Rare /hpf (None) H 02/03/18 22:22 Urine Mucus Rare /hpf (None) H 02/03/18 22:22 Microbiology 02/03/18 22:22 Urine,Clean Catch Urine Culture - Final 02/03/18 22:35 Toe - Left First Gram Stain - Preliminary 02/03/18 22:35 Toe - Left First Wound Culture - Preliminary Group D Enterococcus Strep agalactiae - (group b) 02/03/18 22:14 Blood Blood Culture - Preliminary No Growth after 24 hours Assessment and Plan (1) 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 She's trying to improve her diabetes care and is trying to improve her hemoglobin A1c. Presents now with the gangrenous changes left great toe with leukocytosis fever pain and hyperglycemia. The patient has been attempting to care for it but has markedly worsened as far as the infection to the toe now with bony exposure. X- ray reveals evidence of underlying osteomyelitis distally and there is evidence of some gangrenous change already. The plan will be to have the patient evidently by surgery, will likely need amputation of the distal aspect of the great toe given the gangrenous changes the bony destruction and the desire to limit the infection to salvage the first metatarsophalangeal joint to allow adequate ambulation given her age of only 47. Laboratories to be obtained. Maximize protein intake. Ensure she is in a multivitamin. We'll need follow-up with the wound center and appropriate offloading to allow healing postoperatively. 02/05/2018 reveals the patient to be having some slight improvement since coming to hospital with antibiotic therapy, glucose control and elevation. Local wound care is also utilizes to absorb drainage. She's been seen by vascular surgery there is plans for debridement and distal toe amputation for the gangrenous changes that have been noted. The extensive debridement and amputation will be noted at the time of surgery depending on the extension of the infection. Wound cultures revealing evidence of enterococcus and group B strep. Continue Invanz and add vancomycin for now until there is further data. The discharge plan will become more evident after the surgical debridement is performed performed. Current Visit: Yes Status: Acute Code(s): E08.621 - DIABETES MELLITUS DUE TO UNDERLYING CONDITION W FOOT ULCER; L97.524 - NON-PRS CHRONIC ULCER OTH PRT LEFT FOOT W NECROSIS OF BONE SNOMED Code(s): 454214035 (2) Diabetes mellitus type 2, uncontrolled, with complications Current Visit: Yes Status: Acute Code(s): E11.8 - TYPE 2 DIABETES MELLITUS WITH UNSPECIFIED COMPLICATIONS; E11.65 - TYPE 2 DIABETES MELLITUS WITH HYPERGLYCEMIA SNOMED Code(s): 387939904
[2018-02-06] MEDS ORDERED: VANCOMYCIN 1,750 MG in SODIUM CHLORIDE 0.9% 500 ML 500 ML IVPB SCH ×2
[2018-02-06 07:17] LABS: Glucose,Whole Blood 120 mg/dL (75-99)
[2018-02-06] MEDS: SYMBICORT 160-4.5 MCG INHALER INHALATION SCH ×2 (07:26→20:20)
[2018-02-06] MEDS: INSULIN ASPART 100 UNIT/ML 1 ML 10 ML VIAL SQ SCH ×4 (07:27→21:08)
[2018-02-06] MEDS: FOLIC ACID 1 MG TAB PO SCH (09:46)
[2018-02-06] MEDS: FLUoxetine HCL 10 MG CAP PO SCH (09:46)
[2018-02-06] MEDS: ASCORBIC ACID 500 MG TAB PO SCH (09:46)
[2018-02-06] MEDS: ATORVASTATIN 40 MG TAB PO SCH (09:46)
[2018-02-06] MEDS: CHOLECALCIFEROL 1,000 UNIT TAB PO SCH (09:46)
[2018-02-06] MEDS: buPROPion SR 100 MG TABLET.ER PO SCH ×2 (09:46→20:21)
[2018-02-06] MEDS: MAGNESIUM OXIDE 400 MG TAB PO SCH (09:46)
[2018-02-06] MEDS: REPAGLINIDE 1 MG TAB PO SCH ×3 (09:46→17:16)
[2018-02-06] MEDS: hydrALAZINE HCL 25 MG TAB PO SCH ×2 (09:46→20:21)
[2018-02-06] MEDS: HYDROcodone/APAP 5-325MG 1 EACH TAB PO PRN ×2 (10:03→20:29)
[2018-02-06 11:58] LABS: Glucose,Whole Blood 137 mg/dL (75-99)
[2018-02-06] MEDS ORDERED: LACTATED RINGERS 1,000 ML IV ONE (12:51)
--- NOTE | 2018-02-06 13:49 | P.PN ---
Subjective Progress Note Date: 02/06/18 This is a 47-year-old female who presented to the emergency room complaining of pain in her left great toe. Patient states that she has been treated outpatient leave for an infection of the left great toe. However yesterday the pain increased unable to tolerate weight bearing and also complains of a fever at that time. Patient is scheduled to see wound care, however, due to a back log she is on a waiting list. Patient has a history of diabetes and a history of amputation to the right fifth toe approximately 5 years ago. She states that her diabetes has been under control her last hemoglobin A1c was 7.2. 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 She states that she does have good shoes, however, within the callus started she did change shoes to help relieve the pressure. X- ray of the foot shows soft tissue air with soft tissue swelling and destructive changes consistent with osteomyelitis of the distal phalanx good toe left foot. Patient presents today resting comfortably without any complaints. Dressing to the left great toe in place. Dressing removed showing edematous, ecchymosis, open sore to left great toe with induration approximately 2 cm in the dorsal foot area patient denies any chest pain, difficulty breathing, nausea or vomiting. Patient denies any fevers at this time. 02/05: Patient states that she has less redness and edema today. She has been seen by Dr. Sánchez and Dr. Wynn is to see her today. Wound culture is showing group D enterococcus and strep agalactia. She is currently on IV antibiotics in the form of ertapenem and vancomycin. Blood sugars have been running between 141 and 234. Hemoglobin A1c will be ordered. 02/06: Patient is scheduled for left great toe amputation today with Dr. Wynn. She denies any new concerns. Blood sugar this morning has been 120 but has been up to 314. Hemoglobin A1c came back at 10. Patient has been afebrile. Review of systems: Constitutional: No fever, no chills, no night sweats. No weight change. No weakness, fatigue or lethargy. No daytime sleepiness. EENT: No headache. No blurred vision or double vision, no loss of vision. No loss of Hearing, no ringing in the ears, no dizziness. No nasal drainage or congestion. No epistaxis. No sore throat. Lungs: No shortness of breath, cough, no sputum production. No wheezing. Cardiovascular: No chest pain, no lower extremity edema. No palpitations. No paroxysmal nocturnal dyspnea. No orthopnea. No lightheadedness or dizziness. No syncopal episodes. Abdominal: No abdominal pain. No nausea, vomiting. No diarrhea. No constipation. No bloody or tarry stools.. No loss of appetite. Genitourinary: No dysuria, increased frequency, urgency. No urinary retention. Musculoskeletal: No myalgias. No muscle weakness, no gait dysfunction, no frequent falls. No back pain. No neck pain. Integumentary: No wounds, no lesions. No rash or pruritus. No unusual bruising. No change in hair or nails. Psychiatric: No depression. No anxiety. No mood swings. Endocrine: + abnormal blood sugars. No weight change. No excessive sweating or thirst. No cold intolerance. No weight change. Objective - Vital Signs Vital signs: Vital Signs Temp 97.7 F 02/06/18 06:04 Pulse 77 02/06/18 06:04 Resp 18 02/06/18 06:04 BP 128/61 02/06/18 06:04 Pulse Ox 98 02/06/18 06:04 Intake & Output 02/05/18 02/06/18 02/06/18 18:59 06:59 18:59 Intake Total 200 Balance 200 Weight 119 kg Intake: Oral 200 Other: Voiding Method Toilet # Voids 2 2 # Bowel Movements 0 - Exam Gen: This is a 47-year-old female, in no acute distress, obese, cooperative. She is sitting on edge of the bed with feet in a dependent position. HEENT: Head is atraumatic, normocephalic. Pupils equal, round. Sclerae is anicteric. NECK: Supple. No JVD. No lymphadenopathy. No thyromegaly. LUNGS: Clear to auscultation. No wheezes or rhonchi. No intercostal retractions. HEART: Regular rate and rhythm. No murmur. ABDOMEN: Soft. Bowel sounds are present. No masses. No tenderness. EXTREMITIES: No pedal edema. No calf tenderness. Left great toe has large dressing in place. NEUROLOGICAL: Patient is awake, alert and oriented x3. Cranial nerves 2 through 12 are grossly intact. - Labs CBC & Chem 7: 02/05/18 09:28 02/05/18 09:28 Labs: Abnormal Lab Results - Last 24 Hours (Table) 02/03/18 02/05/18 02/05/18 Range/Units 22:14 09:28 09:28 RBC 3.29 L (3.80-5.40) m/uL Hgb 10.2 L (11.4-16.0) gm/dL Hct 29.2 L (34.0-46.0) % ESR 114 H (0-20) mm/hr BUN 31 H (7-17) mg/dL Creatinine 1.31 H (0.52-1.04) mg/dL Glucose 215 H (74-99) mg/dL POC Glucose (mg/dL) (75-99) mg/dL Hemoglobin A1c 10.0 H (4.0-6.0) % C-Reactive Protein 136.5 H (<10.0) mg/L Total Protein 6.1 L (6.3-8.2) g/dL Albumin 3.0 L (3.5-5.0) g/dL 02/05/18 02/05/18 02/05/18 Range/Units 12:27 17:40 20:42 RBC (3.80-5.40) m/uL Hgb (11.4-16.0) gm/dL Hct (34.0-46.0) % ESR (0-20) mm/hr BUN (7-17) mg/dL Creatinine (0.52-1.04) mg/dL Glucose (74-99) mg/dL POC Glucose (mg/dL) 198 H 236 H 314 H (75-99) mg/dL Hemoglobin A1c (4.0-6.0) % C-Reactive Protein (<10.0) mg/L Total Protein (6.3-8.2) g/dL Albumin (3.5-5.0) g/dL 02/06/18 Range/Units 07:08 RBC (3.80-5.40) m/uL Hgb (11.4-16.0) gm/dL Hct (34.0-46.0) % ESR (0-20) mm/hr BUN (7-17) mg/dL Creatinine (0.52-1.04) mg/dL Glucose (74-99) mg/dL POC Glucose (mg/dL) 120 H (75-99) mg/dL Hemoglobin A1c (4.0-6.0) % C-Reactive Protein (<10.0) mg/L Total Protein (6.3-8.2) g/dL Albumin (3.5-5.0) g/dL Microbiology - Last 24 Hours (Table) 02/03/18 22:14 Blood Culture - Preliminary Blood No Growth after 48 hours 02/03/18 22:22 Urine Culture - Final Urine,Clean Catch 02/03/18 22:35 Gram Stain - Preliminary Toe - Left First Wound Culture - Preliminary Group D Enterococcus Strep agalactiae - (group b) Assessment and Plan Plan: 1. Osteomyelitis secondary to diabetic foot ulcer with pressure component, continue ertapenem and vancomycin, pain management of [place], consult with Dr. Sánchez appreciated. Dr. Wynn on consult to plan for amputation today. 2. Diabetes mellitus continue with Prandin 3 mg 3 times a day, Levemir 40 units at bedtime, NovoLog sliding scale before meals and at bedtime 3. Hypertension continue hydralazine 25 mg daily 4. Hyperlipidemia continue with Lipitor 40 mg daily 5. Depression continue with fluoxetine 10 mg daily, Wellbutrin 200 mg twice a day. 6. DVT prophylaxis, ambulation Discharge plan: Most likely home Impression and plan of care have been directed as dictated by the signing physician. Clarissa Up nurse practitioner acting as scribe for signing physician.
[2018-02-06] MEDS ORDERED: MIDAZOLAM 2 MG/2 ML VIAL ONE ×2 (13:50→14:09)
[2018-02-06] MEDS ORDERED: MIDAZOLAM 2 MG/2 ML VIAL IVP ONE (13:55)
[2018-02-06] MEDS ORDERED: ROPIVACAINE 5 MG/ML 30 ML VIAL ONE (14:09)
[2018-02-06] MEDS ORDERED: diphenhydrAMINE 50 MG/ML 1 ML VIAL ONE (14:09)
[2018-02-06] MEDS ORDERED: PHENYLEPHRINE-0.9% NACL SYG 1 MG/10 ML SYRINGE ONE (14:09)
[2018-02-06] MEDS ORDERED: PROPOFOL 10 MG/ML 20 ML VIAL IV ONE (14:09)
[2018-02-06] MEDS ORDERED: LIDOCAINE 1% INJ 10MG/ML (20 ML MDV) ONE (14:09)
[2018-02-06] MEDS ORDERED: LIDOCAINE 2%-EPI 1:100,000 20 ML VIAL ONE (14:09)
[2018-02-06] MEDS ORDERED: fentaNYL (PF) 50 MCG/ML 2 ML AMP ONE (14:09)
--- NOTE | 2018-02-06 14:50 | P.ONQ ---
Anesthesiology Proc Note - PNB - Peripheral Nerve Block Performed Left Other (see comment) Single Time Out Performed: Yes (Left ankle block) Procedure Start Time: 13:50 Procedure Stop Time: 14:02 Indication: Acute Post-Operative Pain, Requested by physician (Dr Gordon) Sedation Type: Sedate with meaningful contact maintained Preparation: Sterile Prep Position: Supine Catheter: None Needle Types: Touhy Needle Size: 50mm (2") Needle Gauge: 20 Injectate: 2.0% Lidocaine (see comment for volume) (15 mls) Blood Aspirated: No Pain Paresthesia on Injection Noted: No Resistance on Injection: Normal Events: Uneventful and Well Tolerated
[2018-02-06 15:24] LABS: Glucose,Whole Blood 124 mg/dL (75-99)
[2018-02-06] MEDS: VANCOMYCIN 1,750 MG in SODIUM CHLORIDE 0.9% 500 ML 500 ML IVPB SCH (16:01)
[2018-02-06] MEDS: ERTAPENEM 1 GM in SODIUM CHLORIDE 0.9% 50 ML IVPB SCH (16:01)
[2018-02-06 17:29] LABS: Glucose,Whole Blood 103 mg/dL (75-99)
[2018-02-06 20:50] LABS: Glucose,Whole Blood 192 mg/dL (75-99)
[2018-02-06] MEDS: INSULIN DETEMIR 100 UNIT/ML 10 ML VIAL SQ SCH (21:07)
[2018-02-07 07:15] LABS: Glucose,Whole Blood 153 mg/dL (75-99)
--- NOTE | 2018-02-07 07:28 | OP ---
OPERATIVE REPORT SURGEON: Armando Wynn MD PREOPERATIVE DIAGNOSIS: Wet gangrene of the left foot big toe. POSTOPERATIVE DIAGNOSIS: OPERATION: Amputation of the left foot big toe. PROCEDURE: This patient has history of diabetes, neuropathy. The patient came to the emergency room with infection and cellulitis on the dorsum and plantar aspect of the foot. The patient was seen by Infectious Disease and started on IV antibiotic. I was consulted for further evaluation. Femoral and dorsal pedis pulses were present. Patient has a left big toe grossly infected with mushy skin and draining of pus noted from the plantar dorsum aspect of the foot. The patient was brought to the operating room and left foot was prepped and draped per prior usual by sterile manner. After that, we made an elliptical incision, deepened through the skin and dorsum and plantar aspect of the foot. Tendons were divided on the plantar and dorsal aspect of the big toe. There was an extensive necrosis and tissue was necrotic and foul smelling odor was noted. Deep culture was taken. The big toe was disarticulated. After that, head of the metatarsal was divided with hand saw and wound was copiously irrigated with saline. The necrotic tissue was removed from the stump of the big toe and viable tissue was approximated with 3-0 Vicryl and skin was kept open. Dressing applied. Patient tolerated the procedure well. MMODL / IJN: [id number] /
[2018-02-07] MEDS: VANCOMYCIN 1,750 MG in SODIUM CHLORIDE 0.9% 500 ML 500 ML IVPB SCH ×2 (08:00→23:13)
[2018-02-07] MEDS: REPAGLINIDE 1 MG TAB PO SCH ×3 (08:02→17:40)
[2018-02-07] MEDS: INSULIN ASPART 100 UNIT/ML 1 ML 10 ML VIAL SQ SCH ×4 (08:02→21:09)
[2018-02-07] MEDS: FLUoxetine HCL 10 MG CAP PO SCH (08:03)
[2018-02-07] MEDS: buPROPion SR 100 MG TABLET.ER PO SCH ×2 (08:03→21:09)
[2018-02-07] MEDS: ASCORBIC ACID 500 MG TAB PO SCH (08:03)
[2018-02-07] MEDS: CHOLECALCIFEROL 1,000 UNIT TAB PO SCH (08:03)
[2018-02-07] MEDS: ATORVASTATIN 40 MG TAB PO SCH (08:03)
[2018-02-07] MEDS: hydrALAZINE HCL 25 MG TAB PO SCH ×2 (08:03→21:09)
[2018-02-07] MEDS: FOLIC ACID 1 MG TAB PO SCH (08:03)
[2018-02-07] MEDS: MAGNESIUM OXIDE 400 MG TAB PO SCH (08:04)
[2018-02-07] MEDS: HYDROcodone/APAP 5-325MG 1 EACH TAB PO PRN ×3 (08:08→23:13)
[2018-02-07] MEDS: SYMBICORT 160-4.5 MCG INHALER INHALATION SCH ×2 (08:12→20:40)
--- NOTE | 2018-02-07 09:13 | PN ---
PROGRESS NOTE This is a 47-year-old female with history of diabetes. Patient came with wet gangrene of the left foot big toe. The patient went for ray amputation yesterday. This morning, we changed the dressing. No bleeding, no discharge noted. PLAN: Plan is we will place Aquacel Silver and we will arrange for wound VAC and the patient has been seen by Dr. Sánchez for IV antibiotic. MMODL / IJN: [id number] /
[2018-02-07 12:07] LABS: HCT 30.1 % (34.0-46.0); MCH 30.4 pg (25.0-35.0); MCHC 33.2 g/dL (31.0-37.0); MCV 91.7 fL (80.0-100.0); Mean Platelet Volume 6.9; Platelet Count 290 k/uL (150-450); RBC 3.28 m/uL (3.80-5.40); RDW 12.9 % (11.5-15.5); WBC 6.7 k/uL (3.8-10.6)
[2018-02-07 12:13] LABS: Glucose,Whole Blood 241 mg/dL (75-99)
[2018-02-07 12:21] LABS: Calcium 9.1 mg/dL (8.4-10.2)
--- NOTE | 2018-02-07 15:01 | P.PN ---
Subjective Progress Note Date: 02/07/18 This is a 47-year-old female who presented to the emergency room complaining of pain in her left great toe. Patient states that she has been treated outpatient leave for an infection of the left great toe. However yesterday the pain increased unable to tolerate weight bearing and also complains of a fever at that time. Patient is scheduled to see wound care, however, due to a back log she is on a waiting list. Patient has a history of diabetes and a history of amputation to the right fifth toe approximately 5 years ago. She states that her diabetes has been under control her last hemoglobin A1c was 7.2. 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 She states that she does have good shoes, however, within the callus started she did change shoes to help relieve the pressure. X- ray of the foot shows soft tissue air with soft tissue swelling and destructive changes consistent with osteomyelitis of the distal phalanx good toe left foot. Patient presents today resting comfortably without any complaints. Dressing to the left great toe in place. Dressing removed showing edematous, ecchymosis, open sore to left great toe with induration approximately 2 cm in the dorsal foot area patient denies any chest pain, difficulty breathing, nausea or vomiting. Patient denies any fevers at this time. 02/05: Patient states that she has less redness and edema today. She has been seen by Dr. Sánchez and Dr. Wynn is to see her today. Wound culture is showing group D enterococcus and strep agalactia. She is currently on IV antibiotics in the form of ertapenem and vancomycin. Blood sugars have been running between 141 and 234. Hemoglobin A1c will be ordered. 02/06: Patient is scheduled for left great toe amputation today with Dr. Wynn. She denies any new concerns. Blood sugar this morning has been 120 but has been up to 314. Hemoglobin A1c came back at 10. Patient has been afebrile. 02/07: Patient is status post intubation of the left great toe. Her pain is currently controlled. She denies any nausea or vomiting. Appetite is good. Wound culture is positive for enterococcus and strep. She is currently on ertapenem and vancomycin. Dr. Sánchez is planning oral antibiotics at discharge. But sugars are running between 103 and 241. Most likely patient will be ready for discharge the next 24-[address] Wynn clears her for discharge Review of systems: Constitutional: No fever, no chills, no night sweats. No weight change. No weakness, fatigue or lethargy. No daytime sleepiness. EENT: No headache. No blurred vision or double vision, no loss of vision. No loss of Hearing, no ringing in the ears, no dizziness. No nasal drainage or congestion. No epistaxis. No sore throat. Lungs: No shortness of breath, cough, no sputum production. No wheezing. Cardiovascular: No chest pain, no lower extremity edema. No palpitations. No paroxysmal nocturnal dyspnea. No orthopnea. No lightheadedness or dizziness. No syncopal episodes. Abdominal: No abdominal pain. No nausea, vomiting. No diarrhea. No constipation. No bloody or tarry stools.. No loss of appetite. Genitourinary: No dysuria, increased frequency, urgency. No urinary retention. Musculoskeletal: No myalgias. No muscle weakness, no gait dysfunction, no frequent falls. No back pain. No neck pain. Integumentary: No wounds, no lesions. No rash or pruritus. No unusual bruising. No change in hair or nails. Psychiatric: No depression. No anxiety. No mood swings. Endocrine: + abnormal blood sugars. No weight change. No excessive sweating or thirst. No cold intolerance. No weight change. Objective - Vital Signs Vital signs: Vital Signs Temp 97.5 F L 02/07/18 05:59 Pulse 79 02/07/18 05:59 Resp 18 02/07/18 05:59 BP 124/59 02/07/18 05:59 Pulse Ox 96 02/07/18 05:59 Intake & Output 02/06/18 02/07/18 02/07/18 18:59 06:59 18:59 Intake Total 1100 Output Total 50 Balance 1050 Weight 119 kg Intake: IV 500 Oral 600 Output: Estimated Blood Loss 50 Other: Voiding Method Bedside Commode # Voids 1 1 # Bowel Movements 0 - Exam Gen: This is a 47-year-old female, in no acute distress, obese, cooperative. She is in bed. HEENT: Head is atraumatic, normocephalic. Pupils equal, round. Sclerae is anicteric. NECK: Supple. No JVD. No lymphadenopathy. No thyromegaly. LUNGS: Clear to auscultation. No wheezes or rhonchi. No intercostal retractions. HEART: Regular rate and rhythm. No murmur. ABDOMEN: Soft. Bowel sounds are present. No masses. No tenderness. EXTREMITIES: No pedal edema. No calf tenderness. Left great toe has dressing in place which was not removed. NEUROLOGICAL: Patient is awake, alert and oriented x3. Cranial nerves 2 through 12 are grossly intact. - Labs CBC & Chem 7: 02/07/18 11:21 02/07/18 11:21 Labs: Abnormal Lab Results - Last 24 Hours (Table) 02/06/18 02/06/18 02/06/18 Range/Units 11:56 15:20 17:15 POC Glucose (mg/dL) 137 H 124 H 103 H (75-99) mg/dL 02/06/18 02/07/18 Range/Units 20:37 07:02 POC Glucose (mg/dL) 192 H 153 H (75-99) mg/dL Microbiology - Last 24 Hours (Table) 02/03/18 22:14 Blood Culture - Preliminary Blood No Growth after 72 hours 02/06/18 15:00 Gram Stain - Preliminary Toe - Left First Wound Culture - Preliminary 02/06/18 15:00 Anaerobic Culture - Preliminary Toe - Left First 02/03/18 22:35 Gram Stain - Final Toe - Left First Wound Culture - Final Enterococcus faecalis Strep agalactiae - (group b) Assessment and Plan Plan: 1. Osteomyelitis secondary to diabetic foot ulcer with pressure component, continue ertapenem and vancomycin, pain management of [place], consult with Dr. Sánchez appreciated. Dr. Wynn status post amputation of the first great toe. Dr. Sánchez is planning on oral antibiotics at the time of discharge 2. Diabetes mellitus continue with Prandin 3 mg 3 times a day, Levemir 40 units at bedtime, NovoLog sliding scale before meals and at bedtime 3. Hypertension continue hydralazine 25 mg daily 4. Hyperlipidemia continue with Lipitor 40 mg daily 5. Depression continue with fluoxetine 10 mg daily, Wellbutrin 200 mg twice a day. 6. DVT prophylaxis, ambulation Discharge plan: home in the next 24-48 hours Impression and plan of care have been directed as dictated by the signing physician. Clarissa Up nurse practitioner acting as scribe for signing physician.
[2018-02-07] MEDS: ERTAPENEM 1 GM in SODIUM CHLORIDE 0.9% 50 ML IVPB SCH (15:48)
[2018-02-07 17:46] LABS: Glucose,Whole Blood 150 mg/dL (75-99)
[2018-02-07 20:43] LABS: Glucose,Whole Blood 202 mg/dL (75-99)
[2018-02-07] MEDS: INSULIN DETEMIR 100 UNIT/ML 10 ML VIAL SQ SCH (21:09)
[2018-02-08 07:14] LABS: Glucose,Whole Blood 105 mg/dL (75-99)
[2018-02-08] MEDS: hydrALAZINE HCL 25 MG TAB PO SCH ×2 (07:19→21:38)
[2018-02-08] MEDS: FLUoxetine HCL 10 MG CAP PO SCH (07:19)
[2018-02-08] MEDS: MAGNESIUM OXIDE 400 MG TAB PO SCH (07:19)
[2018-02-08] MEDS: buPROPion SR 100 MG TABLET.ER PO SCH ×2 (07:19→21:38)
[2018-02-08] MEDS: REPAGLINIDE 1 MG TAB PO SCH ×3 (07:19→18:19)
[2018-02-08] MEDS: FOLIC ACID 1 MG TAB PO SCH (07:19)
[2018-02-08] MEDS: ASCORBIC ACID 500 MG TAB PO SCH (07:19)
[2018-02-08] MEDS: HYDROcodone/APAP 5-325MG 1 EACH TAB PO PRN ×3 (07:20→21:44)
[2018-02-08] MEDS: ATORVASTATIN 40 MG TAB PO SCH (07:20)
[2018-02-08] MEDS: CHOLECALCIFEROL 1,000 UNIT TAB PO SCH (07:20)
[2018-02-08] MEDS: INSULIN ASPART 100 UNIT/ML 1 ML 10 ML VIAL SQ SCH ×4 (07:37→21:39)
[2018-02-08] MEDS: SYMBICORT 160-4.5 MCG INHALER INHALATION SCH ×2 (09:10→20:39)
[2018-02-08 10:03] LABS: Calcium 9.6 mg/dL (8.4-10.2); Potassium 4.8 mmol/L (3.5-5.1)
[2018-02-08 12:27] LABS: Glucose,Whole Blood 125 mg/dL (75-99)
--- NOTE | 2018-02-08 12:54 | P.PN ---
Subjective Progress Note Date: 02/08/18 This is a 47-year-old female who presented to the emergency room complaining of pain in her left great toe. Patient states that she has been treated outpatient leave for an infection of the left great toe. However yesterday the pain increased unable to tolerate weight bearing and also complains of a fever at that time. Patient is scheduled to see wound care, however, due to a back log she is on a waiting list. Patient has a history of diabetes and a history of amputation to the right fifth toe approximately 5 years ago. She states that her diabetes has been under control her last hemoglobin A1c was 7.2. 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 She states that she does have good shoes, however, within the callus started she did change shoes to help relieve the pressure. X- ray of the foot shows soft tissue air with soft tissue swelling and destructive changes consistent with osteomyelitis of the distal phalanx good toe left foot. Patient presents today resting comfortably without any complaints. Dressing to the left great toe in place. Dressing removed showing edematous, ecchymosis, open sore to left great toe with induration approximately 2 cm in the dorsal foot area patient denies any chest pain, difficulty breathing, nausea or vomiting. Patient denies any fevers at this time. 02/05: Patient states that she has less redness and edema today. She has been seen by Dr. Sánchez and Dr. Wynn is to see her today. Wound culture is showing group D enterococcus and strep agalactia. She is currently on IV antibiotics in the form of ertapenem and vancomycin. Blood sugars have been running between 141 and 234. Hemoglobin A1c will be ordered. 02/06: Patient is scheduled for left great toe amputation today with Dr. Wynn. She denies any new concerns. Blood sugar this morning has been 120 but has been up to 314. Hemoglobin A1c came back at 10. Patient has been afebrile. 02/07: Patient is status post amputation of the left great toe. Her pain is currently controlled. She denies any nausea or vomiting. Appetite is good. Wound culture is positive for enterococcus and strep. She is currently on ertapenem and vancomycin. Dr. Sánchez is planning oral antibiotics at discharge. But sugars are running between 103 and 241. Most likely patient will be ready for discharge the next 24-[address] Wynn clears her for discharge 02/08 the patient sitting comfortably in bed denies any pain. Wound VAC to be placed today. Infectious disease recommendations still pending. HbA1c 10. Patient to follow as outpatient for diabetes control may need endocrinology for uncontrolled diabetes. Plan to discharge tomorrow Review of systems: Constitutional: No fever, no chills, no night sweats. No weight change. No weakness, fatigue or lethargy. No daytime sleepiness. EENT: No headache. No blurred vision or double vision, no loss of vision. No loss of Hearing, no ringing in the ears, no dizziness. No nasal drainage or congestion. No epistaxis. No sore throat. Lungs: No shortness of breath, cough, no sputum production. No wheezing. Cardiovascular: No chest pain, no lower extremity edema. No palpitations. No paroxysmal nocturnal dyspnea. No orthopnea. No lightheadedness or dizziness. No syncopal episodes. Abdominal: No abdominal pain. No nausea, vomiting. No diarrhea. No constipation. No bloody or tarry stools.. No loss of appetite. Genitourinary: No dysuria, increased frequency, urgency. No urinary retention. Musculoskeletal: No myalgias. No muscle weakness, no gait dysfunction, no frequent falls. No back pain. No neck pain. Integumentary: No wounds, no lesions. No rash or pruritus. No unusual bruising. No change in hair or nails. Dressing of left feet with no soaking Psychiatric: No depression. No anxiety. No mood swings. Endocrine: + abnormal blood sugars. No weight change. No excessive sweating or thirst. No cold intolerance. No weight change. Objective - Vital Signs Vital signs: Vital Signs Temp 96.7 F L 02/08/18 05:45 Pulse 69 02/08/18 05:45 Resp 18 02/08/18 07:30 BP 112/56 02/08/18 05:45 Pulse Ox 96 02/08/18 05:45 Intake & Output 02/07/18 02/08/18 02/08/18 18:59 06:59 18:59 Intake Total 500 Balance 500 Intake: Oral 500 Other: Voiding Method Toilet Toilet # Voids 2 2 - Exam GENERAL: This is a 47 -year-old male in no apparent distress at the time of my examination. HEENT: Head is atraumatic, normocephalic. Pupils are equal, round. Sclerae anicteric. Conjunctivae are clear. Mucous membranes of the mouth are moist. Neck is supple. There is no jugular venous distention. No carotid bruit is heard. LUNGS: Clear to auscultation no wheezes, rales or rhonchi. No chest wall tenderness is noted on palpation or with deep breathing. HEART: Regular rate and rhythm without murmurs, rubs or gallops. S1 and S2 heard. ABDOMEN: Soft, nontender. Bowel sounds are heard. No organomegaly noted. EXTREMITIES: 2+ peripheral pulses with no evidence of peripheral edema and no calf tenderness noted. Dressing applied to the left foot with minimal soakage NEUROLOGIC: Patient is awake, alert and oriented x3. - Labs CBC & Chem 7: 02/07/18 11:21 02/08/18 09:32 Labs: Abnormal Lab Results - Last 24 Hours (Table) 02/07/18 02/07/18 02/08/18 Range/Units 17:21 20:39 07:12 BUN (7-17) mg/dL Creatinine (0.52-1.04) mg/dL Glucose (74-99) mg/dL POC Glucose (mg/dL) 150 H 202 H 105 H (75-99) mg/dL 02/08/18 02/08/18 Range/Units 09:32 12:25 BUN 25 H (7-17) mg/dL Creatinine 1.30 H (0.52-1.04) mg/dL Glucose 145 H (74-99) mg/dL POC Glucose (mg/dL) 125 H (75-99) mg/dL Microbiology - Last 24 Hours (Table) 02/06/18 15:00 Gram Stain - Final Toe - Left First Wound Culture - Final Strep agalactiae - (group b) 02/03/18 22:14 Blood Culture - Preliminary Blood No Growth after 96 hours Assessment and Plan Plan: 1. Osteomyelitis secondary to diabetic foot ulcer with pressure component, continue ertapenem and vancomycin, pain management of [place], consult with Dr. Sánchez appreciated. Wound culture positive for strep agalactiae and enterococcus. Wound VAC placed. Dr. Wynn status post amputation of the first great toe. Dr. Sánchez is planning on oral antibiotics at the time of discharge 2. Diabetes mellitus continue with Prandin 3 mg 3 times a day, Levemir 40 units at bedtime, NovoLog sliding scale before meals and at bedtime 3. Hypertension continue hydralazine 25 mg daily 4. Hyperlipidemia continue with Lipitor 40 mg daily 5. Depression continue with fluoxetine 10 mg daily, Wellbutrin 200 mg twice a day. 6. DVT prophylaxis, ambulation Discharge plan: home in the next 24hours
[2018-02-08] MEDS ORDERED: VANCOMYCIN TROUGH DUE 1 EACH MISC MISCELLANE ONE (15:00)
[2018-02-08] MEDS: ERTAPENEM 1 GM in SODIUM CHLORIDE 0.9% 50 ML IVPB SCH (15:44)
[2018-02-08] MEDS: VANCOMYCIN 1,500 MG in SODIUM CHLORIDE 0.9% 250 ML IVPB SCH (17:10)
[2018-02-08 17:18] LABS: Glucose,Whole Blood 162 mg/dL (75-99)
[2018-02-08] MEDS: VANCOMYCIN 1,750 MG in SODIUM CHLORIDE 0.9% 500 ML 500 ML IVPB SCH (17:36)
--- NOTE | 2018-02-08 19:44 | PN ---
PROGRESS NOTE This is a 47-year-old diabetic female. 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 The patient went for ray amputation of the left foot big toe. Patient is under care of Infectious Disease for IV antibiotic. We changed the dressing today and we placed V.A.C. therapy. The patient will be needing a PICC line for IV antibiotic. When the patient goes home we will follow her at the wound clinic on Monday. MMSTEFANIAL / PRISCAN: [id number] /
[2018-02-08 21:35] LABS: Glucose,Whole Blood 148 mg/dL (75-99)
[2018-02-08] MEDS: INSULIN DETEMIR 100 UNIT/ML 10 ML VIAL SQ SCH (21:38)
[2018-02-09 02:49] VITALS: RESP 20
[2018-02-09 06:38] VITALS: BP 158/72; PULSE 76; TEMP 97.7
[2018-02-09 07:09] LABS: Glucose,Whole Blood 103 mg/dL (75-99)
[2018-02-09] MEDS: INSULIN ASPART 100 UNIT/ML 1 ML 10 ML VIAL SQ SCH ×2 (08:08→12:37)
[2018-02-09] MEDS: hydrALAZINE HCL 25 MG TAB PO SCH (08:10)
[2018-02-09] MEDS: buPROPion SR 100 MG TABLET.ER PO SCH (08:10)
[2018-02-09] MEDS: REPAGLINIDE 1 MG TAB PO SCH ×2 (08:10→12:07)
[2018-02-09] MEDS: FLUoxetine HCL 10 MG CAP PO SCH (08:10)
[2018-02-09] MEDS: ASCORBIC ACID 500 MG TAB PO SCH (08:10)
[2018-02-09] MEDS: ATORVASTATIN 40 MG TAB PO SCH (08:10)
[2018-02-09] MEDS: CHOLECALCIFEROL 1,000 UNIT TAB PO SCH (08:10)
[2018-02-09] MEDS: FOLIC ACID 1 MG TAB PO SCH (08:10)
[2018-02-09] MEDS: MAGNESIUM OXIDE 400 MG TAB PO SCH (08:10)
[2018-02-09] MEDS: SYMBICORT 160-4.5 MCG INHALER INHALATION SCH (08:15)
[2018-02-09] MEDS: VANCOMYCIN 1,500 MG in SODIUM CHLORIDE 0.9% 250 ML IVPB SCH (08:17)
[2018-02-09] MEDS: HYDROcodone/APAP 5-325MG 1 EACH TAB PO PRN (09:59)
[2018-02-09] MEDS ORDERED: LIDOCAINE 1% INJ 10MG/ML (20 ML MDV) SQ ONE (11:01)
[2018-02-09 11:03] LABS: Calcium 9.5 mg/dL (8.4-10.2); Potassium 4.9 mmol/L (3.5-5.1)
[2018-02-09] MEDS ORDERED: ERTAPENEM 1 GM in SODIUM CHLORIDE 0.9% 50 ML IVPB SCH (11:15)
--- NOTE | 2018-02-09 11:39 | IR ---
PICC LINE PLACEMENT: HISTORY: Infection requiring long-term antibiotic therapy PROCEDURE: Ultrasound and fluoroscopic guidance of PICC line placement. COMPLICATIONS: None ANESTHESIA: 1. 1% Lidocaine locally. FINDINGS/TECHNIQUE: The procedure was explained to the patient. The risks, complications, benefits and alternatives were discussed and any questions were answered. Informed consent was obtained. The patient was placed supine on the fluoroscopic table and prepped and draped in the usual sterile formerly [facility] ion. Utilizing a 21 gauge needle and sonographic and fluoroscopic guidance, access in the vein was achieved and there is placement of a 0.018 guidewire. The vein is patent. A 4-F sheath was placed o richard the guidewire. The guidewire and dilator were removed and a 4-F. PICC line was placed through th e sheath with the tip at the level of the SVC. The sheath was removed, the catheter was flushed and sutured into position. The patient was stable throughout the procedure and remained stable upon disc harge from the Department of Radiology. The vein puncture was patent under ultrasound. A vivar scale image was obtained to document patency of the vein punctured. All elements of the maximal barrier technique were utilized. FLUOROSCOPY TIME: 0.2 minutes, one image submitted IMPRESSION: Successful PICC line placement under ultrasound and fluoroscopic guidance.
--- NOTE | 2018-02-09 11:51 | P.DS ---
Providers Date of admission: 02/04/18 00:13 Attending physician: Sanchez Garcia Consults: 02/04/18 09:53 Consult Physician Routine Consulting Provider: Sanchez Sánchez Consult Reason/Comments: osteomyelitis Do you want consulting provider notified?: Yes 02/04/18 11:40 Consult Physician Routine Consulting Provider: Armando Wynn Consult Reason/Comments: left great toe/foot osteomylitis Do you want consulting provider notified?: Already Contacted 02/04/18 11:45 Consult Physician Routine Consulting Provider: Armando Wynn Consult Reason/Comments: Osteomyelitis Do you want consulting provider notified?: Already Contacted Primary care physician: [facility] Course: This is a 47-year-old female who presented to the emergency room complaining of pain in her left great toe. Patient states that she has been treated outpatient leave for an infection of the left great toe. However yesterday the pain increased unable to tolerate weight bearing and also complains of a fever at that time. Patient is scheduled to see wound care, however, due to a back log she is on a waiting list. Patient has a history of diabetes and a history of amputation to the right fifth toe approximately 5 years ago. She states that her diabetes has been under control her last hemoglobin A1c was 7.2. 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 She states that she does have good shoes, however, within the callus started she did change shoes to help relieve the pressure. X- ray of the foot shows soft tissue air with soft tissue swelling and destructive changes consistent with osteomyelitis of the distal phalanx good toe left foot. Patient presents today resting comfortably without any complaints. Dressing to the left great toe in place. Dressing removed showing edematous, ecchymosis, open sore to left great toe with induration approximately 2 cm in the dorsal foot area patient denies any chest pain, difficulty breathing, nausea or vomiting. Patient denies any fevers at this time. 02/05: Patient states that she has less redness and edema today. She has been seen by Dr. Sánchez and Dr. Wynn is to see her today. Wound culture is showing group D enterococcus and strep agalactia. She is currently on IV antibiotics in the form of ertapenem and vancomycin. Blood sugars have been running between 141 and 234. Hemoglobin A1c will be ordered. 02/06: Patient is scheduled for left great toe amputation today with Dr. Wynn. She denies any new concerns. Blood sugar this morning has been 120 but has been up to 314. Hemoglobin A1c came back at 10. Patient has been afebrile. 02/07: Patient is status post amputation of the left great toe. Her pain is currently controlled. She denies any nausea or vomiting. Appetite is good. Wound culture is positive for enterococcus and strep. She is currently on ertapenem and vancomycin. Dr. Sánchez is planning oral antibiotics at discharge. But sugars are running between 103 and 241. Most likely patient will be ready for discharge the next 24-[address] Wynn clears her for discharge 02/08 the patient sitting comfortably in bed denies any pain. Wound VAC to be placed today. Infectious disease recommendations still pending. HbA1c 10. Patient to follow as outpatient for diabetes control may need endocrinology for uncontrolled diabetes. Plan to discharge tomorrow 02/09 patient called for PICC line placement for ertapenem IV 1 g foot every 24 hours for 4 weeks with follow-up with Dr. Sánchez and Dr. Wynn as outpatient. Discharge on wound vac and will follow at wound care. pathology positive for osteomyelitis. Wound culture stret agalctaie and enterococcus. GENERAL: This is a 47 -year-old male in no apparent distress at the time of my examination. LUNGS: Clear to auscultation no wheezes, rales or rhonchi. No chest wall tenderness is noted on palpation or with deep breathing. HEART: Regular rate and rhythm without murmurs, rubs or gallops. S1 and S2 heard. ABDOMEN: Soft, nontender. Bowel sounds are heard. No organomegaly noted. EXTREMITIES: 2+ peripheral pulses with no evidence of peripheral edema and no calf tenderness noted. Dressing applied to the left foot with no soakage Discharge diagnoses 1. Osteomyelitis secondary to diabetic foot ulcer Wound culture positive for strep agalactiae and enterococcus. Wound VAC placed. 2. Diabetes mellitus uncontrolled 3. Hypertension 4. Hyperlipidemia 5. Depression Discharge plan: home w [facility] care CC a copy of discharge to Dr. warner Patient Condition at Discharge: Fair Plan - Discharge Summary Discharge Rx Participant: No New Discharge Prescriptions: New Ertapenem [INVanz] 1 gm IVPB Q24H #30 bag HYDROcodone/APAP 5-325MG [[place] 5-325] 1 each PO TID PRN #9 tab PRN Reason: Pain Continue Budesonide-Formot 160-4.5 Mcg [Symbicort 160-4.5 Mcg Inhaler] 320 mcg INHALATION BID Milk Thistle 1,000 mg PO DAILY Folic Acid 0.8 mg PO DAILY Potassium 99 mg PO DAILY Cholecalciferol (Vitamin D3) [Vitamin D3] 5,000 unit PO DAILY Magnesium 250 mg PO DAILY Cranberry Fruit Extract [Cranberry] 500 mg PO DAILY Repaglinide [Prandin] 3 mg PO AC-TID hydrALAZINE HCL 25 mg PO BID buPROPion SR [Wellbutrin SR] 200 mg PO BID Atorvastatin [Lipitor] 40 mg PO DAILY@0900 Insulin Glargine,Hum.rec.anlog [Ameya Cummings] See Protocol SQ AC-TID FLUoxetine HCL 10 mg PO DAILY@0900 Vitamin C/Biotin [Hair, Skin and Nails] 3 tab PO DAILY Ascorbic Acid [Vitamin C] 1,000 mg PO DAILY Inulin/Chromium Picolinate [Fiber Gummies Chew] 1 tab PO DAILY Discharge Medication List Ascorbic Acid [Vitamin C] 1,000 mg PO DAILY 02/04/18 [History] Atorvastatin [Lipitor] 40 mg PO DAILY@0900 02/04/18 [History] Budesonide-Formot 160-4.5 Mcg [Symbicort 160-4.5 Mcg Inhaler] 320 mcg INHALATION BID 02/04/18 [History] Cholecalciferol (Vitamin D3) [Vitamin D3] 5,000 unit PO DAILY 02/04/18 [History] Cranberry Fruit Extract [Cranberry] 500 mg PO DAILY 02/04/18 [History] FLUoxetine HCL 10 mg PO DAILY@0900 02/04/18 [History] Folic Acid 0.8 mg PO DAILY 02/04/18 [History] Insulin Glargine,Hum.rec.anlog [Ameya Cummings] See Protocol SQ AC-TID [History] Inulin/Chromium Picolinate [Fiber Gummies Chew] 1 tab PO DAILY 02/04/18 [History ] Magnesium 250 mg PO DAILY 02/04/18 [History] Milk Thistle 1,000 mg PO DAILY 02/04/18 [History] Potassium 99 mg PO DAILY 02/04/18 [History] Repaglinide [Prandin] 3 mg PO AC-TID 02/04/18 [History] Vitamin C/Biotin [Hair, Skin and Nails] 3 tab PO DAILY 02/04/18 [History] buPROPion SR [Wellbutrin SR] 200 mg PO BID 02/04/18 [History] hydrALAZINE HCL 25 mg PO BID 02/04/18 [History] Ertapenem [INVanz] 1 gm IVPB Q24H #30 bag 02/08/18 [Rx] HYDROcodone/APAP 5-325MG [[place] 5-325] 1 each PO TID PRN #9 tab 02/09/18 [Rx] Follow up Appointment(s)/Referral(s): Shari Warner MD [Primary Care Provider] - 1 Week Sanchez Sánchez MD [STAFF PHYSICIAN] - [facility] [NON-STAFF] - 02/12/18 10:00 am Ambulatory/Diagnostic Orders: Miscellaneous Lab Order [LAB.AMB] Location: None Selected Basic Metabolic Panel [LAB.AMB] Location: None Selected Complete Blood Count w/diff [LAB.AMB] Location: None Selected Patient Instructions/Handouts: Osteomyelitis (DC), Toe Amputation (DC) Activity/Diet/Wound Care/Special Instructions: Patient would like to participate in output diabetes ed classes per Gutierrez diabetes RN. Cardiac, diabetic diet. PICC line for IVAB, card given to patient. Wound vac to left toe to be changed Monday,Monday and Monday. Full code Activity as tolerated, fall precautions. Discharge Disposition: HOME WITH HOME HEALTH SERVICES
[2018-02-09] MEDS: ERTAPENEM 1 GM in SODIUM CHLORIDE 0.9% 50 ML IVPB SCH (12:32)
[2018-02-09 12:35] LABS: Glucose,Whole Blood 143 mg/dL (75-99)
== END 2018-02-09 14:35 | disposition home health service (06) | DRG 617 ==
LOC: EC 19:42 → 4MS4W 02-04 00:13
PROVIDERS: ADMIT Internal Medicine Geriatric Medicine; ATTEND Internal Medicine Geriatric Medicine
PROC: 0Y6Q0Z0 Detachment at Left 1st Toe, Complete, Open Approach (ICD-10-PCS; principal; 2018-02-06 12:00)
PROC: 02HV33Z Insertion of Infusion Device into Superior Vena Cava, Percutaneous Approach (ICD-10-PCS; 2018-02-09 14:05)
DX: E11.69 Type 2 diabetes mellitus with other specified complication (principal); M86.8X7 Other osteomyelitis, ankle and foot; E11.52 Type 2 diabetes mellitus with diabetic peripheral angiopathy with gangrene; L03.116 Cellulitis of left lower limb; I96 Gangrene, not elsewhere classified; E11.22 Type 2 diabetes mellitus with diabetic chronic kidney disease; E11.40 Type 2 diabetes mellitus with diabetic neuropathy, unspecified; E11.65 Type 2 diabetes mellitus with hyperglycemia; L97.529 Non-pressure chronic ulcer of other part of left foot with unspecified severity; E11.621 Type 2 diabetes mellitus with foot ulcer; N18.3 Chronic kidney disease, stage 3 (moderate); I12.9 Hypertensive chronic kidney disease with stage 1 through stage 4 chronic kidney disease, or unspecified chronic kidney disease; B95.2 Enterococcus as the cause of diseases classified elsewhere; B95.1 Streptococcus, group B, as the cause of diseases classified elsewhere; G89.29 Other chronic pain; M54.9 Dorsalgia, unspecified; G56.01 Carpal tunnel syndrome, right upper limb; J45.909 Unspecified asthma, uncomplicated; F32.9 Major depressive disorder, single episode, unspecified; E78.5 Hyperlipidemia, unspecified; L84 Corns and callosities; Z79.51 Long term (current) use of inhaled steroids; Z79.4 Long term (current) use of insulin; Z79.899 Other long term (current) drug therapy; Z89.421 Acquired absence of other right toe(s); Z87.891 Personal history of nicotine dependence; Z91.040 Latex allergy status; Z88.0 Allergy status to penicillin; Z91.018 Allergy to other foods; Z83.3 Family history of diabetes mellitus; Z82.49 Family history of ischemic heart disease and other diseases of the circulatory system; Z80.0 Family history of malignant neoplasm of digestive organs; Z83.2 Family history of diseases of the blood and blood-forming organs and certain disorders involving the immune mechanism
CPT/HCPCS: 36415; 36569; 76937; 77001; 80048; 80053; 80202; 81001; 81025; 83036; 83605; 85025; 85027; 85610; 85652; 85730; 86140; 87040; 87070; 87075; 87077; 87086; 87186; 87205; 88305; 88311; 93005; 94640; 96365; 96367; 96375; 99285

== ENCOUNTER 2018-04-01 14:02 | Inpatient (IN) | payer BC ==
[2018-04-01] MEDS ORDERED: NALOXONE 0.4 MG/ML 1 ML VIAL IV PRN (15:07)
--- NOTE | 2018-04-01 15:28 | ED ---
Headache HPI - General Chief Complaint: Headache Stated Complaint: Headache with double vision Time Seen by Provider: 04/01/18 14:19 Mode of arrival: ambulatory Limitations: no limitations - History of Present Illness Initial Comments: This is a 47-year-old female past medical history of diabetes with peripheral vascular disease status post left great toe amputation, asthma, hypertension, chronic kidney disease stage III presents today for chief complaint of headache. Patient states that she woke up this morning with a dull aching headache, she states is sharp at times behind the left eye. Patient has had diplopia for the past month and has been seen by ophthalmology she had optic neuritis by her laborer mine who scheduled an MRI for this upcoming Monday. Patient stated that at the time of diagnoses optic neuritis she had no associated symptoms, aside from diplopia. Patient denied recent increase in headache, nausea, vomiting, vision loss, sensation deficits, muscle weakness, speech, changes ataxia. Pt states that she was told if she develops a headache at any time she was to presents emergency department for evaluation with imaging to rule out brain mass. Patient states that she developed a headache she denies it being sudden or worse headache of her life. Patient denies any new symptoms. Patient states she was not concerned about the headache however she presents emergency department due to ophthalmology recommendations. Remainder of ROS negative, Patient denies any recent fever, chills, shortness of breath, chest pain, back pain, abdominal pain, nausea or vomiting, numbness or tingling, dysuria or hematuria, constipation or diarrhea, or any other complaints. Upon arrival patient is well-appearing, she states that the headache persists however no change in characteristic. Vital signs are within acceptable limits. - Related Data Home Medications Medication Instructions Recorded Confirmed Atorvastatin [Lipitor] 40 mg PO DAILY 02/04/18 04/01/18 Budesonide-Formot 160-4.5 Mcg 2 puff INHALATION RT-BID 02/04/18 04/01/18 [Symbicort 160-4.5 Mcg Inhaler] Insulin Glargine,Hum.rec.anlog 30 units SQ AC-BID 02/04/18 04/01/18 [Toucynthia Solostar] hydrALAZINE HCL [Apresoline] 100 mg PO TID 04/01/18 04/01/18 Previous Rx's Medication Instructions Recorded HYDROcodone/APAP 5-325MG [[place] 1 each PO TID PRN #9 tab 02/09/18 5-325] Allergies Allergy/AdvReac Type Severity Reaction Status Date / Time banana Allergy Nausea & Verified 04/01/18 15:45 Vomiting latex Allergy Rash/Hives Verified 04/01/18 15:45 mushroom Allergy Nausea & Verified 04/01/18 15:45 Vomiting Penicillins Allergy Rash/Hives Verified 04/01/18 15:45 Review of Systems ROS Statement: Those systems with pertinent positive or pertinent negative responses have been documented in the HPI. ROS Other: All systems not noted in ROS Statement are negative. Constitutional: Denies: fever, chills Eyes: Reports: vision change (diplopia). Denies: eye pain ENT: Denies: throat pain Respiratory: Denies: cough, dyspnea, wheezes, hemoptysis Cardiovascular: Denies: chest pain, palpitations, dyspnea on exertion Gastrointestinal: Denies: abdominal pain, nausea, vomiting, diarrhea, constipation Genitourinary: Denies: urgency, dysuria, frequency, hematuria Musculoskeletal: Denies: back pain, joint swelling Skin: Denies: rash, lesions Neurological: Reports: headache. Denies: weakness, numbness, paresthesias, confusion, abnormal gait, vertigo Past Medical History Past Medical History: Asthma, Diabetes Mellitus, Hyperlipidemia, Hypertension Additional Past Medical History / Comment(s): Fell a few years ago and it caused chronic back pain, right wrist carpal tunnel (wears brace), previous reports from imaging tests state CKD stage 3 (patient unsure of this diagnosis) , DM type 2. History of Any Multi-Drug Resistant Organisms: None Reported Additional Past Surgical History / Comment(s): Fifth digit amputation right foot , oral surgery.lt. great toe amp. Past Psychological History: Depression Smoking Status: Never smoker Past Alcohol Use History: None Reported Past Drug Use History: None Reported - Past Family History Mother Family Medical History: Dementia, Diabetes Mellitus Father Family Medical History: Cancer, Coronary Artery Disease (CAD), Deep Vein Thrombosis (DVT) Additional Family Medical History / Comment(s): Quadruple bypass. One brother and sister both healthy. No children General Exam - General Exam Comments Initial Comments: General: The patient is awake and alert, in no distress, and does not appear acutely ill. Eye: +3 pupils are equal, round and reactive to light, No nystagmus. No obvious APD. There is conjugate gaze with lateral gaze to the left. There is normal conjunctiva bilaterally. No signs of icterus. Ears, nose, mouth and throat: There are moist mucous membranes and no oral lesions. Neck: The neck is supple, there is no tenderness or JVD. Cardiovascular: There is a regular rate and rhythm. No murmur, rub or gallop is appreciated. Respiratory: Lungs are clear to auscultation, respirations are non-labored, breath sounds are equal. No wheezes, stridor, rales, or rhonchi. Musculoskeletal: Normal ROM, no tenderness. Strength 5/5. Sensation intact. Pulses equal bilaterally 2+. Neurological: A&O x 3. CN II-XII intact, aside from what appears to be lateral rectus palsy of the right eye. Memory intact to immediately, intermediate and roasterman recall. Able to follow simple verbal. Able to name a common object ( pen). High quality, labial (pa) and lingual (la) speech. Low quality posterior pharynx/larynx (ga) voice sounds. Able to express general knowledge (days in a week). No hemineglect or inattention noted. Finger agnosia (-) and spatially oriented (identified L index finger touched R shoulder with L index finger). Light touch and temperature sensation present over the face, chest, abdomen, back, UE bilaterally, and LE bilaterally. Able to localize point during point localization b/l and extinction. No visible bulk atrophy, hypertrophy, fasciculations, or myoclonus of the UE or LE b/l. Full PROM in UE and LE b/l. Bilateral muscle strength 5/5 for the following muscles: deltoid, biceps, triceps, brachioradialis, wrist extensors/flexor, hip flexor, hip abductors/ adductors, hamstrings, quadriceps, feet dorsiflexors/plantar flexors. Finger to nose, finger to the examiners finger, and heel to villarreal coordinated and accurate b/l. Coordinated and even demonstration of hand flip, finger to thumb, and toe tap b/l. Gait is coordinated and even in stride with tandem. Maintains balance with monopedal stance. (-) Romberg. (-) pronator drift. No nuchal rigidity. (-) Skin: Skin is warm and dry and no rashes or lesions are noted. Psychiatric: Cooperative, appropriate mood & affect, normal judgment. Limitations: no limitations Course Vital Signs 04/01/18 04/01/18 04/01/18 14:06 14:26 15:57 Temperature 97.6 F 97.5 F L Pulse Rate 91 81 Respiratory 20 18 Rate Blood Pressure 153/8 151/82 144/80 O2 Sat by Pulse 98 98 Oximetry 04/01/18 17:23 Temperature Pulse Rate 75 Respiratory 18 Rate Blood Pressure 144/83 O2 Sat by Pulse 95 Oximetry Medical Decision Making - Medical Decision Making Pt with cc of headache with hx of 1 month of diplopia/optic neuritis. Pt headache appears consistent with dx of optic neuritis. There is noted lateral rectus palsy on PE. Findings are concerning for MS. no other focal neurological deficits on exam. No N/V or chronic headaches. Dr. Yuan neurology consulted, he recommended admission with solumedrol [id number] IVPB with MRI and ophthalmology consult. No further orders. Dr. Yuan had spoken with Dr. Valdez who evaluated pt face to face. Pt appears well, VS stable. Pt is awaiting placement on floor, remains comfortable, no new focal deficits. Pt transferred to floor in stable condition. Disposition Clinical Impression: Diplopia Disposition: ADMITTED IP TO THIS HOSP Condition: Stable Is patient prescribed a controlled substance at d/c from ED?: No Time of Disposition: 15:28 Decision to Admit Reason: Admit from EC Decision Date: 04/01/18 Decision Time: 15:28
[2018-04-01] MEDS: SODIUM CHLORIDE 0.9% 1,000 ML IV SCH (15:35)
[2018-04-01] MEDS: methylPREDNISolone SOD SUCCI 250 MG in SODIUM CHLORIDE 0.9% 100 ML IVPB SCH ×2 (16:35→23:38)
[2018-04-01 17:46] LABS: Glucose,Whole Blood 157 mg/dL (75-99)
--- NOTE | 2018-04-01 19:51 | P.CNNES ---
History of Present Illness Consult date: 04/01/18 Reason for Consult: Patient admitted with left eye optic neuritis and eye muscle palsy. History of Present Illness: This patient is a 47-year-old right-handed white female who was in her usual state of health until early last week. Patient apparently developed some diplopia of sudden onset. She went to see her [employer] special agent Dr. Acosta on Monday of last week. She was diagnosed as having optic neuritis involving her left eye. She was complaining of severe left-sided retro-orbital eye pain. She was recommended to have a MRI done as outpatient. Patient states that the left retro-orbital eye pain worsen significantly over the next few days. She decided to come to the emergency room today as the pain was quite unbearable. She was seen in the ER by Dr. Valdez and was felt to have evidence suggesting optic neuritis. We recommended the patient to be admitted for a course of IV Solu-Medrol therapy. It is unclear how long the optic neuritis has been present but hoarding to the patient this may have been over the last 1 month. We are recommending the patient to undergo further evaluation with an MRI of the brain. The patient states that she has been also complaining of sudden onset of diplopia. When questioned about the diplopia she states this has been present along with the optic neuritis. She has been having horizontal diplopia. It only affects her left eye. If she closes one eye the double vision completely corrects itself. The patient states she was noted in the ophthalmology clinic as having some changes in the left eye and for this reason was scheduled to have an MRI next week. Due to her admission now to the hospital we're recommending MRI of the brain to be done immediately tomorrow for further evaluation. The patient has a long-standing history of diabetes mellitus. Her last hemoglobin A1c was 9.0. She is trying to better regulate her diabetes. She was also noted recently to have mild essential hypertension. On examination in her room today she is noted to have left eye diplopia secondary to a left lateral rectus nerve palsy affecting the abducens nerve on the left. We've explained this finding today to the patient in detail. The other condition that should be further evaluated for her is a possibility of demyelinating disease such as multiple sclerosis. We will wait to get her MRI study done tomorrow and we'll give further recommendations depending on these results. She does not give classical history of multiple sclerosis based on symptoms at this time. Her exam at bedside also does not reflect a strong indication of MS. Once again we will continue the patient on IV Solu-Medrol for treatment of optic neuritis and left retro-orbital eye pain. We will obtain a ophthalmology consultation with Dr. Acosta. We would recommend placing this patient on a insulin sliding scale as per Dr. Rincon's orders. We will continue to follow her overall prognosis closely during this admission. Neurology is now been consulted for further evaluation and recommendations. Review of Systems Constitutional: Denies chills, Denies fever Eyes: left diplopia (Patient The patient has left sixth nerve palsy), denies blurred vision, denies pain Ears, nose, mouth and throat: Denies headache, Denies sore throat Cardiovascular: Denies chest pain, Denies shortness of breath Respiratory: Denies cough Gastrointestinal: Denies abdominal pain, Denies diarrhea, Denies nausea, Denies vomiting Genitourinary: Denies dysuria, Denies hematuria Musculoskeletal: Denies myalgias Integumentary: Denies pruritus, Denies rash Neurological: Reports double vision, Reports headaches, Reports paresthesias, Denies numbness, Denies weakness Psychiatric: Denies anxiety, Denies depression Endocrine: Denies fatigue, Denies weight change Past Medical History Past Medical History: Asthma, Diabetes Mellitus, Hyperlipidemia, Hypertension Additional Past Medical History / Comment(s): Fell a few years ago and it caused chronic back pain, right wrist carpal tunnel (wears brace), previous reports from imaging tests state CKD stage 3 (patient unsure of this diagnosis) , DM type 2. History of Any Multi-Drug Resistant Organisms: None Reported Additional Past Surgical History / Comment(s): Fifth digit amputation right foot , oral surgery.lt. great toe amp. Past Psychological History: Depression Smoking Status: Never smoker Past Alcohol Use History: None Reported Past Drug Use History: None Reported - Past Family History Mother Family Medical History: Dementia, Diabetes Mellitus Father Family Medical History: Cancer, Coronary Artery Disease (CAD), Deep Vein Thrombosis (DVT) Additional Family Medical History / Comment(s): Quadruple bypass. One brother and sister both healthy. No children Medications and Allergies Home Medications Medication Instructions Recorded Confirmed Type Atorvastatin [Lipitor] 40 mg PO DAILY 02/04/18 04/01/18 History Budesonide-Formot 160-4.5 Mcg 2 puff INHALATION RT-BID 02/04/18 04/01/18 History [Symbicort 160-4.5 Mcg Inhaler] Insulin Glargine,Hum.rec.anlog 30 units SQ AC-BID 02/04/18 04/01/18 History [Toucynthia Solostar] HYDROcodone/APAP 5-325MG [[place] 1 each PO TID PRN #9 tab 02/09/18 04/01/18 Rx 5-325] hydrALAZINE HCL [Apresoline] 100 mg PO TID 04/01/18 04/01/18 History Allergies Allergy/AdvReac Type Severity Reaction Status Date / Time banana Allergy Nausea & Verified 04/01/18 15:45 Vomiting latex Allergy Rash/Hives Verified 04/01/18 15:45 mushroom Allergy Nausea & Verified 04/01/18 15:45 Vomiting Penicillins Allergy Rash/Hives Verified 04/01/18 15:45 Physical Examination - Vital Signs Vital Signs: Vital Signs Temp Pulse Pulse Resp BP BP Pulse Ox 04/01/18 17:54 98.5 F 79 16 161/77 97 04/01/18 17:23 75 18 144/83 95 04/01/18 15:57 97.5 F L 81 18 144/80 98 04/01/18 14:26 151/82 04/01/18 14:06 97.6 F 91 20 153/8 98 Intake and Output 04/01/18 04/01/18 04/01/18 06:59 14:59 22:59 Other: Weight 117.934 kg - Constitutional General appearance: average body habitus, cooperative - EENT EENT: PERRL, mucous membranes moist - Respiratory Respiratory: lungs clear, normal breath sounds - Cardiovascular Cardiovascular: regular rate, normal S1, normal S2 Extremities: no peripheral edema bilaterally - Gastrointestinal Gastrointestinal: normoactive bowel sounds - Integumentary Integumentary: normal - Neurologic Cranial nerve examination: PERRL, EOMI, VFF, V1/V2/V3 grossly intact, face symmetric, intact gag reflex, intact corneal reflex, normal palatal elevation Speech examination: intact Sensorimotor examination: intact Motor examination - right side: 4/5: biceps, triceps, wrist flexion, wrist extension, on air personality, hip flexors, knee extensors, dorsiflexion, toe extension (EHL) , plantarflexion Motor examination - left side: 4/5: biceps, triceps, wrist flexion, wrist extension, on air personality, hip flexors, knee extensors, dorsiflexion, toe extension (EHL) , plantarflexion Detailed sensory examination: intact Reflex and gait examination: intact Reflexes: 1+: ankle, bicep, knee, tricep - Musculoskeletal Musculoskeletal: no pain - Psychiatric Psychiatric: mood/affect appropriate, cooperative Results - Laboratory Findings Abnormal Lab Findings: Abnormal Labs 04/01/18 17:44 POC Glucose (mg/dL) 157 H Assessment and Plan (1) Sixth nerve palsy of left eye Current Visit: Yes Status: Acute Code(s): H49.22 - SIXTH [ABDUCENT] NERVE PALSY, LEFT EYE SNOMED Code(s): 080889228 (2) Optic neuritis, left Current Visit: Yes Status: Acute Code(s): H46.9 - UNSPECIFIED OPTIC NEURITIS SNOMED Code(s): 53585427 (3) Diabetes mellitus type 2, uncontrolled, with complications Current Visit: No Status: Acute Code(s): E11.8 - TYPE 2 DIABETES MELLITUS WITH UNSPECIFIED COMPLICATIONS; E11.65 - TYPE 2 DIABETES MELLITUS WITH HYPERGLYCEMIA SNOMED Code(s): 723355467 (4) Essential hypertension Current Visit: Yes Status: Acute Code(s): I10 - ESSENTIAL (PRIMARY) HYPERTENSION SNOMED Code(s): 68667579 Plan: This patient is a 47-year-old female admitted with a one-month history of optic neuritis and sudden onset of diplopia. She was admitted to hospital today for severe left retro-orbital eye pain. She does have evidence as diagnosed by her fbi special agent Dr. Acosta as having left eye optic neuritis. Her pains felt to be secondary to the optic neuritis. We have recommended the patient undergo MRI of the brain tomorrow for further evaluation. She is noted also on examination today is having a left sixth nerve palsy. This suggests possibility of brainstem ischemia versus demyelinating disease such as MS. We have recommended she undergo an MRI of the brain tomorrow for further evaluation. We will obtain an ophthalmology consultation with Dr. Acosta. In the meantime she may continue on IV Solu-Medrol for at least the next 2 days. She does have history of underlying diabetes mellitus and will need insulin sliding scale coverage while she is on steroids. We will give further recommendations pending the results of her MRI of the brain. Overall prognosis at this time remains guarded. Time with Patient: Greater than 30
[2018-04-01 20:22] LABS: Basophils % (A) 0 %; Eosinophils # (A) 0.1 k/uL (0-0.7); Eosinophils % (A) 2 %; HCT 38.6 % (34.0-46.0); Lymphocytes # (A) 0.6 k/uL (1.0-4.8); Lymphocytes % (A) 11 %; MCH 29.1 pg (25.0-35.0); MCV 88.2 fL (80.0-100.0); Mean Platelet Volume 7.1; Monocytes # (A) 0.1 k/uL (0-1.0); Monocytes % (A) 2 %; Neutrophils # (A) 5.2 k/uL (1.3-7.7); Neutrophils % (A) 85 %; Platelet Count 169 k/uL (150-450); RBC 4.38 m/uL (3.80-5.40); RDW 13.6 % (11.5-15.5); WBC 6.1 k/uL (3.8-10.6)
[2018-04-01 20:25] LABS: Glucose,Whole Blood 258 mg/dL (75-99)
[2018-04-01 20:48] LABS: HGB 12.8 gm/dL (11.4-16.0)
[2018-04-01 20:57] LABS: Calcium 10.1 mg/dL (8.4-10.2); Potassium 4.5 mmol/L (3.5-5.1)
[2018-04-01] MEDS: SYMBICORT 160-4.5 MCG INHALER INHALATION SCH (21:38)
[2018-04-01] MEDS: HEPARIN SODIUM,PORCINE 5,000 UNIT/ML 1 ML VIAL SQ SCH (22:01)
[2018-04-01] MEDS: INSULIN DETEMIR 100 UNIT/ML 10 ML VIAL SQ SCH (22:02)
[2018-04-01] MEDS: hydrALAZINE HCL 50 MG TAB PO SCH (22:02)
[2018-04-01] MEDS: HYDROcodone/APAP 5-325MG 1 EACH TAB PO PRN (22:12)
[2018-04-01] MEDS: INSULIN ASPART 100 UNIT/ML 1 ML 10 ML VIAL SQ SCH (22:12)
[2018-04-02 02:09] LABS: Glucose,Whole Blood 305 mg/dL (75-99)
[2018-04-02] MEDS: methylPREDNISolone SOD SUCCI 250 MG in SODIUM CHLORIDE 0.9% 100 ML IVPB SCH ×3 (05:28→17:56)
[2018-04-02 07:09] LABS: Glucose,Whole Blood 345 mg/dL (75-99)
[2018-04-02] MEDS: INSULIN ASPART 100 UNIT/ML 1 ML 10 ML VIAL SQ SCH ×5 (07:52→17:55)
[2018-04-02] MEDS: hydrALAZINE HCL 50 MG TAB PO SCH ×3 (07:53→21:32)
[2018-04-02] MEDS: PANTOPRAZOLE 40 MG TABLET PO SCH (07:53)
[2018-04-02] MEDS: ATORVASTATIN 40 MG TAB PO SCH (07:53)
[2018-04-02] MEDS: HEPARIN SODIUM,PORCINE 5,000 UNIT/ML 1 ML VIAL SQ SCH ×2 (07:53→21:31)
[2018-04-02] MEDS: HYDROcodone/APAP 5-325MG 1 EACH TAB PO PRN ×2 (08:03→22:09)
[2018-04-02] MEDS: SYMBICORT 160-4.5 MCG INHALER INHALATION SCH ×2 (08:47→20:03)
[2018-04-02] MEDS ORDERED: INSULIN GLARGINE HUM REC ANLOG 40 UNIT SQ SCH (09:00)
--- NOTE | 2018-04-02 09:01 | US ---
EXAMINATION TYPE: US carotid duplex BILAT DATE OF EXAM: 04/02/2018 COMPARISON: NONE CLINICAL HISTORY: Patient with acute 6th nerve palsy and headaches.. EXAM MEASUREMENTS: RIGHT: Peak Systolic Velocity (PSV) cm/sec ----- Right CCA: 70.5 ----- Right ICA: 68.8 ----- Right ECA: 91.0 ICA/CCA ratio: 1.0 RIGHT: End Diastole cm/sec ----- Right CCA: 11.2 ----- Right ICA: 17.8 ----- Right ECA: 0.0 LEFT: Peak Systolic Velocity (PSV) cm/sec ----- Left CCA: 79.6 ----- Left ICA: 64.3 ----- Left ECA: 103.4 ICA/CCA ratio: 0.8 LEFT: End Diastole cm/sec ----- Left CCA: 15.6 ----- Left ICA: 22.4 ----- Left ECA: 0.0 VERTEBRALS (direction of flow): Right Vertebral: Antegrade Left Vertebral: Antegrade Rhythm: Normal Mild plaque, no significant velocity elevations. IMPRESSION: Mild degree of grayscale atheromatous plaquing with no sonographically evident hemodynam ically significant stenosis within either visualized carotid arterial system. Criteria for Assigning % of Stenosis / Diameter reduction (Estimation based on the indirect measurements of the internal carotid artery velocities (ICA PSV). 1. Normal (no stenosis)=ICA PSV < 125 cm/s: ratio < 2.0: ICA EDV<40 cm/s. 2. Less than 50% stenosis=ICA PSV < 125 cm/s: ratio < 2.0: ICA EDV<40 cm/s. 3. 50 to 69% stenosis=ICA PSV of 125 to 230 cm/s: ration 2.0 ? 4.0: ICA EDV 40-100 cm/s. 4. Greater than 70% stenosis to near occlusion= ICA PSV > 230 cm/s: ratio > 4.0: ICA EDV > 100 cm/s. 5. Near occlusion= ICA PSV velocities may be low or undetectable: variable ratio and ICA EDV. 6. Total occlusion=unable to detect flow.
[2018-04-02] MEDS: INSULIN DETEMIR 100 UNIT/ML 10 ML VIAL SQ SCH (09:19)
[2018-04-02] MEDS: buPROPion SR 100 MG TABLET.ER PO SCH ×2 (09:21→21:31)
[2018-04-02] MEDS: FLUoxetine HCL 10 MG CAP PO SCH (09:23)
[2018-04-02] MEDS: FUROSEMIDE 20 MG TAB PO SCH (09:23)
[2018-04-02 10:44] LABS: Cholesterol 214 mg/dL (<200); HDL Cholesterol 76 mg/dL (40-60); LDL Cholesterol,Calculated 103 mg/dL (0-99); Triglycerides 173 mg/dL (<150)
[2018-04-02 11:45] LABS: Glucose,Whole Blood 413 mg/dL (75-99)
[2018-04-02] MEDS ORDERED: INSULIN DETEMIR 100 UNIT/ML 10 ML VIAL SQ STA (11:47)
[2018-04-02] MEDS: REPAGLINIDE 1 MG TAB PO SCH ×2 (12:32→17:49)
[2018-04-02] MEDS: SODIUM CHLORIDE 0.9% 1,000 ML IV SCH (12:34)
--- NOTE | 2018-04-02 14:23 | P.HPIM ---
History of Present Illness H&P Date: 04/02/18 This is a 47-year-old female patient of Dr. Rincon with past medical history for diabetes mellitus type 2 uncontrolled with A1c of 10 in January, peripheral vascular disease with previous right fifth toe amputation, recent left great toe amputation in January 2018 for osteomyelitis, mild intermittent asthma, hyperlipidemia, hypertension, chronic kidney disease stage III, anemia of chronic disease, recurrent depression. Patient gives history that she recently completed course of IV antibiotic and pick line was removed 2 weeks ago. She was seen Dr. Sánchez in the wound healing Center and is now under the care Dr. Wynn. Patient complains of double vision that she has had for 3 weeks and initially seen by Adelita JOHNSON in the office and was then sent to see Dr. Acosta. Dr. Acosta has ordered MRI of the brain which is scheduled for Monday for concern of optic neuritis. Patient has bee can home care in place. Patient presented to [facility] emergency center for double vision. There was concern for MS and patient was admitted to the [facility] floor and consults were requested with neurology and ophthalmology. MRI of the brain ordered. Carotid duplex showed no hemodynamically significant stenosis on either carotid artery system. Patient has been seen by Dr. Yuan with recommendations for MRI of the brain for possible brainstem ischemia versus demyelinating disease such as MS. He has ordered Solu-Medrol for the next 2 days. Triglycerides 173 , cholesterol 214, LDL 103, HDL 76. Review of Systems All systems: negative Constitutional: Denies anorexia, Denies chills, Denies chronic headaches, Denies chronic pain, Denies daytime sleepiness, Denies fatigue, Denies fever, Denies lethargy, Denies malaise, Denies poor appetite, Denies weakness, Denies weight loss Eyes: bilateral diplopia, denies blurred vision, denies pain Ears, nose, mouth and throat: Denies dysphagia, Denies headache, Denies sore throat, Denies vertigo, Denies voice changes Cardiovascular: Denies chest pain, Denies decreased exercise tolerance, Denies dyspnea on exertion, Denies edema, Denies leg edema, Denies lightheadedness, Denies palpitations, Denies shortness of breath, Denies syncope Respiratory: Denies cough, Denies cough with sputum, Denies dyspnea, Denies excessive sputum, Denies hemoptysis, Denies home oxygen, Denies wheezing Gastrointestinal: Denies abdominal pain, Denies bloating, Denies diarrhea, Denies loss of appetite, Denies melena, Denies nausea, Denies vomiting Genitourinary: Denies dysuria, Denies hematuria, Denies urgency, Denies urinary frequency Musculoskeletal: Denies myalgias Integumentary: Reports wounds, Denies pruritus, Denies rash Neurological: Reports double vision, Denies aphasia, Denies ataxia, Denies balance difficulties, Denies change in mentation, Denies change in smell/taste, Denies change in speech, Denies confusion, Denies convulsions, Denies gait dysfunction, Denies numbness, Denies weakness Psychiatric: Denies anxiety, Denies depression, Denies suicidal ideation Endocrine: Denies fatigue, Denies weight change Past Medical History Past Medical History: Asthma, Diabetes Mellitus, Hyperlipidemia, Hypertension Additional Past Medical History / Comment(s): Fell a few years ago and it caused chronic back pain, right wrist carpal tunnel (wears brace), previous reports from imaging tests state CKD stage 3, DM type 2. History of Any Multi-Drug Resistant Organisms: None Reported Additional Past Surgical History / Comment(s): Fifth digit amputation right foot , oral surgery.lt. great toe amp, PICC line placement and removal. Past Anesthesia/Blood Transfusion Reactions: No Reported Reaction Past Psychological History: Depression Smoking Status: Former smoker Past Alcohol Use History: None Reported Additional Past Alcohol Use History / Comment(s): Patient quit smoking 20 years ago. Pt. lives at home with . Able to carry out ADLs independently. 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 No stated alcohol use. No experience. No international travel. No new animal exposures Past Drug Use History: None Reported - Past Family History Mother Family Medical History: Dementia, Diabetes Mellitus Father Family Medical History: Cancer, Coronary Artery Disease (CAD), Deep Vein Thrombosis (DVT) Additional Family Medical History / Comment(s): Quadruple bypass. One brother and sister both healthy. No children Medications and Allergies Home Medications Medication Instructions Recorded Confirmed Type Atorvastatin [Lipitor] 40 mg PO DAILY 02/04/18 04/01/18 History Budesonide-Formot 160-4.5 Mcg 2 puff INHALATION RT-BID 02/04/18 04/01/18 History [Symbicort 160-4.5 Mcg Inhaler] Insulin Glargine,Hum.rec.anlog 40 units SQ AC-BID 02/04/18 04/02/18 History [Toucandelarioo Solostar] HYDROcodone/APAP 5-325MG [[place] 1 each PO TID PRN #9 tab 02/09/18 04/01/18 Rx 5-325] hydrALAZINE HCL [Apresoline] 100 mg PO TID 04/01/18 04/01/18 History FLUoxetine HCL [PROzac] 10 mg PO DAILY 04/02/18 04/02/18 History Furosemide [Lasix] 20 mg PO DAILY 04/02/18 04/02/18 History Repaglinide [Prandin] 2 mg PO TID-W/MEALS 04/02/18 04/02/18 History buPROPion HCL [Wellbutrin SR] 200 mg PO BID 04/02/18 04/02/18 History Allergies Allergy/AdvReac Type Severity Reaction Status Date / Time banana Allergy Nausea & Verified 04/01/18 15:45 Vomiting latex Allergy Rash/Hives Verified 04/01/18 15:45 mushroom Allergy Nausea & Verified 04/01/18 15:45 Vomiting Penicillins Allergy Rash/Hives Verified 04/01/18 15:45 Physical Exam Vitals: Vital Signs Temp Pulse Pulse Resp BP BP Pulse Ox 04/02/18 04:01 98.0 F 89 16 154/77 92 L 04/01/18 21:00 98.3 F 84 16 161/77 95 04/01/18 17:54 98.5 F 79 16 161/77 97 04/01/18 17:23 75 18 144/83 95 04/01/18 15:57 97.5 F L 81 18 144/80 98 04/01/18 14:26 151/82 04/01/18 14:06 97.6 F 91 20 153/8 98 Intake and Output 04/01/18 04/02/18 04/02/18 22:59 06:59 14:59 Intake Total 620 900 Balance 620 900 Intake: Intake, IV Titration 80 360 Amount Sodium Chloride 0.9% 1, 80 160 000 ml @ 20 mls/hr IV . Q24H [facility] Rx#:[id number] methylPREDNISolone SOD 200 SUCCI 250 mg In Sodium Chloride 0.9% 100 ml @ 100 mls/hr IVPB Q6HR [facility] Rx#:[id number] Oral 540 540 Other: Voiding Method Toilet Toilet # Voids 2 2 Gen: This is a 47-year-old morbidly obese female. She is resting in bed and appears to be comfortable and in no acute distress. HEENT: Head is atraumatic, normocephalic. Pupils equal, round. Sclerae is anicteric. No thrush noted. NECK: Supple. No JVD. No lymphadenopathy. No thyromegaly. LUNGS: Clear to auscultation. No wheezes or rhonchi. No intercostal retractions. HEART: Regular rate and rhythm. No murmur. ABDOMEN: Soft. Bowel sounds are present. No masses. No tenderness. EXTREMITIES: No pedal edema. No calf tenderness. Patient has a healing wound to the left foot the distal metatarsal from previous amputation of the great toe. No significant erythema, edema, drainage. NEUROLOGICAL: Patient is awake, alert and oriented x3. Cranial nerves 2 through 12 are grossly intact. Results CBC & Chem 7: 04/01/18 20:09 04/01/18 20:09 Labs: Abnormal Lab Results - Last 24 Hours (Table) 04/01/18 04/01/18 04/01/18 Range/Units 17:44 20:09 20:09 Lymphocytes # 0.6 L (1.0-4.8) k/uL BUN 30 H (7-17) mg/dL Creatinine 1.53 H (0.52-1.04) mg/dL Glucose 246 H (74-99) mg/dL POC Glucose (mg/dL) 157 H (75-99) mg/dL 04/01/18 04/02/18 04/02/18 Range/Units 20:24 02:06 07:08 Lymphocytes # (1.0-4.8) k/uL BUN (7-17) mg/dL Creatinine (0.52-1.04) mg/dL Glucose (74-99) mg/dL POC Glucose (mg/dL) 258 H 305 H 345 H (75-99) mg/dL Thrombosis Risk Factor Assmnt - DVT/VTE Prophylaxis DVT/VTE Prophylaxis: Pharmacologic Prophylaxis ordered - Choose All That Apply Each Factor Represents 1 point: Age 41-60 years Each Risk Factor Represents 3 Points: Family history of DVT/PE Thrombosis Risk Factor Assessment Total Risk Factor Score: 4 Thrombosis Risk Factor Assessment Level: Moderate Risk Assessment and Plan Plan: 1. Diplopia secondary to optic neuritis or MS. MRI of the brain. Neurology consult appreciated. IV Solu-Medrol ordered for 2 days. 2. Diabetes mellitus type II uncontrolled with known A1c of 10 and hyperglycemia. Repeat A1c in this admission. Continue Levemir 40 units twice daily, NovoLog added for 10 units 3 times daily with meal and scale. 3. Hypertension. Continue hydralazine 100 mg 3 times daily, Lasix 20 mg daily. 4. Hyperlipidemia. Continue Lipitor 40 mg daily 5. Depression, recurrent. Continue fluoxetine 10 mg daily, Wellbutrin 200 mg twice a day. 6. Chronic kidney disease stage III. Avoid nephrotoxic agents. 7. Mild intermittent asthma, stable without exacerbation. Continue Symbicort 2 puffs twice daily. 8. Anemia of chronic disease, stable. 9. Peripheral vascular disease with recent amputation of the left great toe secondary to osteomyelitis, completed course of IV antibiotics. Continue local wound care with [place] daily. Patient has appointment next Monday with Dr. Wynn. 10. GI prophylaxis. 11. DVT prophylaxis, ambulation Patient will be admitted to the hospital for a minimum of 2 night stay. Discharge plan: home Impression and plan of care have been directed as dictated by the signing physician. Clarissa pU nurse practitioner acting as scribe for signing physician.
[2018-04-02 15:49] LABS: Hemoglobin A1C 9.1 % (4.0-6.0)
[2018-04-02 17:31] LABS: Glucose,Whole Blood 421 mg/dL (75-99)
--- NOTE | 2018-04-02 18:20 | MR ---
EXAMINATION TYPE: MR brain wo con DATE OF EXAM: 04/02/2018 COMPARISON: None HISTORY: Diplopia, lataral rectus palsy, rule out MS Standard multiplanar, multisequence MRI departmental protocol Multiplanar, multisequence images of the brain were acquired. Diffusion weighted imaging was performe d. FINDINGS: Ventricles and sulci appear fairly normal for age. There is no mass effect nor midline shif t. There is no sign of intracranial hemorrhage. White matter structures have fairly normal signal pat tern. There is no evidence of edema. There is no evidence of cortical infarct. Brainstem is intact. S marco turcica appears normal. There is a single 11 x 3 mm linear area of increased signal on the T2 an d FLAIR images in the white matter left insula. This is of uncertain significance. There is no eviden ce of orbital mass. IMPRESSION: Small linear area of increased signal in the insula on the left side of uncertain significance. Other olsen negative exam. I do not see evidence for demyelinating disease.
[2018-04-02] MEDS ORDERED: INSULIN REGULAR BOLUS (FROM DRIP BAG) IV ONE ×2 (18:31→18:41)
[2018-04-02 19:40] LABS: Glucose,Whole Blood 442 mg/dL (75-99)
[2018-04-02] MEDS: INSULIN REGULAR 100 UNIT in SODIUM CHLORIDE 0.9% 100 ML IV SCH (19:53)
[2018-04-02 20:29] LABS: Glucose,Whole Blood 355 mg/dL (75-99)
[2018-04-02] MEDS ORDERED: INSULIN DETEMIR 100 UNIT/ML 10 ML VIAL SQ SCH (21:00)
[2018-04-02 21:13] LABS: Glucose,Whole Blood 341 mg/dL (75-99)
[2018-04-02 21:41] LABS: Glucose,Whole Blood 273 mg/dL (75-99)
--- NOTE | 2018-04-02 21:59 | P.PN ---
Subjective Progress Note Date: 04/02/18 This patient is a pleasant 47 year old female being evaluated for acute left lateral rectus muscle palsy and optic neuritis. The patient was seen last week by her game moderator who diagnosed her with optic neuritis involving the left eye. There was concern whether this may be a harbinger for multiple sclerosis. The patient was sent for MRI of the brain today for further evaluation. Given the finding of acute left sixth nerve palsy there was possibility that she may also have an acute brainstem ischemia or stroke. She did complete MRI of the brain today on 04/02/2018. MRI results indicated a small linear area of increased signal in the left insula. This was of uncertain significance. Otherwise her MRI was reported negative with no evidence for demyelinating disease. We have explained to the patient that at this time the MRI does not indicate brainstem stroke. Her acute left sixth nerve palsy is likely secondary to her history of diabetes. Her blood sugars have been running very high today due to the steroid use and she was started on insulin drip. Patient is to be seen by ophthalmology either today or tomorrow and we will await their further recommendations and findings in regards to the optic neuritis. Patient clearly feels that the steroids have helped as her headache pain is significantly improved which was causing her great deal of distress involving the left eye. She underwent a carotid Doppler study today which revealed no significant carotid artery stenosis. She'll be completing her IV Solu-Medrol therapy tomorrow and at that point can be taken off of the IV steroids and placed onto tapering dose of prednisone. We anticipate she may be able to be discharged home tomorrow following her evaluation by ophthalmology. Neurologically she remains very much intact. She has noted significant improvement with her left eye pain. We have recommended that she will need to continue tight control of her diabetes and blood sugars. Her overall prognosis at this time remains guarded. Objective - Vital Signs Vital signs: Vital Signs Temp 97.3 F L 04/02/18 12:45 Pulse 101 H 04/02/18 12:45 Resp 22 04/02/18 16:00 BP 139/82 04/02/18 12:45 Pulse Ox 94 L 04/02/18 12:45 Intake & Output 04/01/18 04/02/18 04/02/18 18:59 06:59 18:59 Intake Total 1520 Balance 1520 Weight 117.934 kg Intake: Intake, IV Titration 440 Amount Sodium Chloride 0.9% 1, 240 000 ml @ 20 mls/hr IV . Q24H [facility] Rx#:[id number] methylPREDNISolone SOD 200 SUCCI 250 mg In Sodium Chloride 0.9% 100 ml @ 100 mls/hr IVPB Q6HR [facility] Rx#:[id number] Oral 1080 Other: Voiding Method Toilet Toilet # Voids 2 2 - Exam Physical Examination: PHYSICAL EXAMINATION: Patient is resting comfortably in bed. VITAL SIGNS: Blood pressure is [139/82]. Heart rate is [101]. Respiration is [22 ]. Temperature is [97.3]. HEENT: Head is atraumatic, neck is supple, there were no carotid bruits. CHEST: Lungs are clear to auscultation and percussion. CARDIAC: S1, S2 normal rate and rhythm. There is no murmur. ABDOMEN: Soft and nontender. Bowel sounds are present. EXTREMITIES: There is no pedal edema. Peripheral pulses are present. Neurological examination: Patient's neurological examination is unchanged from yesterday. She continues to demonstrate significant findings of an acute left lateral rectus palsy. This is consistent with an acute nerve palsy. Her remaining examination is otherwise nonfocal. - Labs CBC & Chem 7: 04/01/18 20:09 04/01/18 20:09 Labs: Abnormal Lab Results - Last 24 Hours (Table) 04/01/18 04/01/18 04/01/18 Range/Units 20:09 20:09 20:09 Lymphocytes # 0.6 L (1.0-4.8) k/uL BUN 30 H (7-17) mg/dL Creatinine 1.53 H (0.52-1.04) mg/dL Glucose 246 H (74-99) mg/dL POC Glucose (mg/dL) (75-99) mg/dL Hemoglobin A1c 9.1 H (4.0-6.0) % Triglycerides (<150) mg/dL Cholesterol (<200) mg/dL LDL Cholesterol, Calc (0-99) mg/dL HDL Cholesterol (40-60) mg/dL 04/01/18 04/02/18 04/02/18 Range/Units 20:24 02:06 07:08 Lymphocytes # (1.0-4.8) k/uL BUN (7-17) mg/dL Creatinine (0.52-1.04) mg/dL Glucose (74-99) mg/dL POC Glucose (mg/dL) 258 H 305 H 345 H (75-99) mg/dL Hemoglobin A1c (4.0-6.0) % Triglycerides (<150) mg/dL Cholesterol (<200) mg/dL LDL Cholesterol, Calc (0-99) mg/dL HDL Cholesterol (40-60) mg/dL 04/02/18 04/02/18 04/02/18 Range/Units 10:02 11:44 17:28 Lymphocytes # (1.0-4.8) k/uL BUN (7-17) mg/dL Creatinine (0.52-1.04) mg/dL Glucose (74-99) mg/dL POC Glucose (mg/dL) 413 H 421 H (75-99) mg/dL Hemoglobin A1c (4.0-6.0) % Triglycerides 173 H (<150) mg/dL Cholesterol 214 H (<200) mg/dL LDL Cholesterol, Calc 103 H (0-99) mg/dL HDL Cholesterol 76 H (40-60) mg/dL Assessment and Plan (1) Sixth nerve palsy of left eye Current Visit: Yes Status: Acute Code(s): H49.22 - SIXTH [ABDUCENT] NERVE PALSY, LEFT EYE SNOMED Code(s): 530405967 (2) Optic neuritis, left Current Visit: Yes Status: Acute Code(s): H46.9 - UNSPECIFIED OPTIC NEURITIS SNOMED Code(s): 78500883 (3) Diabetes mellitus type 2, uncontrolled, with complications Current Visit: No Status: Acute Code(s): E11.8 - TYPE 2 DIABETES MELLITUS WITH UNSPECIFIED COMPLICATIONS; E11.65 - TYPE 2 DIABETES MELLITUS WITH HYPERGLYCEMIA SNOMED Code(s): 851314518 (4) Essential hypertension Current Visit: Yes Status: Acute Code(s): I10 - ESSENTIAL (PRIMARY) HYPERTENSION SNOMED Code(s): 01518459 Plan: This patient is a pleasant 47-year-old right-handed white female admitted to the hospital with acute onset of severe left ocular eye pain and recent diagnosis of optic neuritis involving the left eye. Her neurological examination on admission revealed her to have evidence of a acute left lateral rectus palsy involving abducent cranial nerve on the left. It was recommended the patient to undergo MRI of the brain to rule out brainstem ischemia. The patient was also being considered for possibility of demyelinating disease such as multiple sclerosis. She was able to complete MRI of the brain today the results of which are noted above. Her MRI is negative for any evidence for demyelinating disease. There was no evidence of brainstem stroke. We've reviewed the results of the MRI today with the patient. She has responded very well to the IV Solu-Medrol in that her left eye pain is now almost completely resolved. We're waiting the patient to be seen by ophthalmology tomorrow for their further evaluation and recommendations. She will complete 3 days of IV Solu-Medrol tomorrow which can be discontinued and she will be placed on tapering doses of oral prednisone. Pending the ophthalmology consultation and recommendation she may be considered for discharge home tomorrow. We reviewed the MRI results once again with the patient in detail. Her acute left lateral rectus palsy is likely secondary to her diabetes. We are recommending that she should have tight control of her diabetes moving forward in terms of her long- term prognosis. We have discussed this in detail today with the patient. Her overall prognosis at this time remains guarded.
[2018-04-02 22:14] LABS: Glucose,Whole Blood 242 mg/dL (75-99)
[2018-04-03] MEDS: methylPREDNISolone SOD SUCCI 250 MG in SODIUM CHLORIDE 0.9% 100 ML IVPB SCH ×3 (00:08→12:19)
[2018-04-03 00:10] LABS: Glucose,Whole Blood 212 mg/dL (75-99)
[2018-04-03 02:10] LABS: Glucose,Whole Blood 150 mg/dL (75-99)
[2018-04-03 04:02] LABS: Glucose,Whole Blood 155 mg/dL (75-99)
[2018-04-03] MEDS: INSULIN REGULAR 100 UNIT in SODIUM CHLORIDE 0.9% 100 ML IV SCH (04:06)
[2018-04-03 06:20] LABS: Glucose,Whole Blood 185 mg/dL (75-99)
[2018-04-03] MEDS ORDERED: INSULIN ASPART 100 UNIT/ML 1 ML 10 ML VIAL SQ SCH ×2 (07:30→12:30)
[2018-04-03 07:47] LABS: Glucose,Whole Blood 184 mg/dL (75-99)
[2018-04-03] MEDS: SYMBICORT 160-4.5 MCG INHALER INHALATION SCH (07:54)
[2018-04-03] MEDS: hydrALAZINE HCL 50 MG TAB PO SCH (08:10)
[2018-04-03] MEDS: INSULIN ASPART 100 UNIT/ML 1 ML 10 ML VIAL SQ SCH ×2 (08:10→12:36)
[2018-04-03] MEDS: ATORVASTATIN 40 MG TAB PO SCH (08:11)
[2018-04-03] MEDS: FLUoxetine HCL 10 MG CAP PO SCH (08:11)
[2018-04-03] MEDS: FUROSEMIDE 20 MG TAB PO SCH (08:11)
[2018-04-03] MEDS: HEPARIN SODIUM,PORCINE 5,000 UNIT/ML 1 ML VIAL SQ SCH (08:11)
[2018-04-03] MEDS: buPROPion SR 100 MG TABLET.ER PO SCH (08:11)
[2018-04-03] MEDS: PANTOPRAZOLE 40 MG TABLET PO SCH (08:11)
[2018-04-03] MEDS: HYDROcodone/APAP 5-325MG 1 EACH TAB PO PRN (08:17)
[2018-04-03 10:17] LABS: Glucose,Whole Blood 240 mg/dL (75-99)
[2018-04-03 10:28] VITALS: BMI 41.9
[2018-04-03 11:53] LABS: Glucose,Whole Blood 260 mg/dL (75-99)
[2018-04-03 12:26] VITALS: BP 154/75; PULSE 88; RESP 16; TEMP 97.7
[2018-04-03] MEDS ORDERED: INSULIN DETEMIR 100 UNIT/ML 10 ML VIAL SQ SCH (12:30)
--- NOTE | 2018-04-03 14:18 | P.DS ---
Providers Date of admission: 04/01/18 15:25 Expected date of discharge: 04/03/18 Attending physician: Sanchez Garcia Consults: 04/01/18 15:07 Consult Physician Stat Consulting Provider: Swathi Acosta Consult Reason/Comments: diplopia Do you want consulting provider notified?: Yes Consult Physician Stat Consulting Provider: Tali Yuan Consult Reason/Comments: diplopia Do you want consulting provider notified?: Yes Primary care physician: Shari Rincon [facility] Course: This is a 47-year-old female patient of Dr. Rincon with past medical history for diabetes mellitus type 2 uncontrolled with A1c of 10 in January, peripheral vascular disease with previous right fifth toe amputation, recent left great toe amputation in January 2018 for osteomyelitis, mild intermittent asthma, hyperlipidemia, hypertension, chronic kidney disease stage III, anemia of chronic disease, recurrent depression. Patient gives history that she recently completed course of IV antibiotic and pick line was removed 2 weeks ago. She was seen Dr. Sánchez in the wound healing Center and is now under the care Dr. Wynn. Patient complains of double vision that she has had for 3 weeks and initially seen by Adelita JOHNSON in the office and was then sent to see Dr. Acosta. Dr. Acosta has ordered MRI of the brain which is scheduled for Monday for concern of optic neuritis. Patient has bee can home care in place. Patient presented to [facility] emergency center for double vision. There was concern for MS and patient was admitted to the [facility] floor and consults were requested with neurology and ophthalmology. MRI of the brain ordered. Carotid duplex showed no hemodynamically significant stenosis on either carotid artery system. Patient has been seen by Dr. Yuan with recommendations for MRI of the brain for possible brainstem ischemia versus demyelinating disease such as MS. He has ordered Solu-Medrol for the next 2 days. Triglycerides 173 , cholesterol 214, LDL 103, HDL 76. 04/03: MRI of the brain was negative with no evidence of demyelinating disease. Dr. Harper recommended tapering dose of prednisone for home. Blood sugars have been running extremely high and patient required placement on insulin drip. We will transition her back to Levemir scheduled and NovoLog scheduled. Patient's home dosing of Levemir will be increased and NovoLog has been added. Patient will be discharged home today after seen by ophthalmology. Discharge diagnoses: 1. Diplopia secondary to sixth cranial nerve palsy due to diabetes, possible optic neuritis. MS is ruled out. 2. Diabetes mellitus type II uncontrolled with hyperglycemia. 3. Hypertension. 4. Hyperlipidemia. 5. Depression, recurrent. 6. Chronic kidney disease stage III. 7. Mild intermittent asthma, stable without exacerbation. 8. Anemia of chronic disease, stable. 9. Peripheral vascular disease with recent amputation of the left great toe secondary to osteomyelitis Discharge plan: home Impression and plan of care have been directed as dictated by the signing physician. Clarissa Up nurse practitioner acting as scribe for signing physician. Patient Condition at Discharge: Good Plan - Discharge Summary Discharge Rx Participant: No New Discharge Prescriptions: New Insulin Aspart [NovoLOG Flexpen] 10 units SQ AC-TID #3 pen predniSONE 0 mg PO DIRECTED #70 tab Continue Budesonide-Formot 160-4.5 Mcg [Symbicort 160-4.5 Mcg Inhaler] 2 puff INHALATION RT-BID Atorvastatin [Lipitor] 40 mg PO DAILY HYDROcodone/APAP 5-325MG [[place] 5-325] 1 each PO TID PRN #9 tab PRN Reason: Pain hydrALAZINE HCL [Apresoline] 100 mg PO TID Furosemide [Lasix] 20 mg PO DAILY Repaglinide [Prandin] 2 mg PO TID-W/MEALS buPROPion HCL [Wellbutrin SR] 200 mg PO BID FLUoxetine HCL [PROzac] 10 mg PO DAILY Changed Insulin Glargine,Hum.rec.anlog [[place]ou[place]o Solostar] 50 units SQ AC-BID #0 Discharge Medication List Atorvastatin [Lipitor] 40 mg PO DAILY 02/04/18 [History] Budesonide-Formot 160-4.5 Mcg [Symbicort 160-4.5 Mcg Inhaler] 2 puff INHALATION RT-BID 02/04/18 [History] HYDROcodone/APAP 5-325MG [[place] 5-325] 1 each PO TID PRN #9 tab 02/09/18 [Rx] hydrALAZINE HCL [Apresoline] 100 mg PO TID 04/01/18 [History] FLUoxetine HCL [PROzac] 10 mg PO DAILY 04/02/18 [History] Furosemide [Lasix] 20 mg PO DAILY 12/03/18 [History] Repaglinide [Prandin] 2 mg PO TID-W/MEALS 04/02/18 [History] buPROPion HCL [Wellbutrin SR] 200 mg PO BID 04/02/18 [History] Insulin Aspart [NovoLOG Flexpen] 10 units SQ AC-TID #3 pen 04/03/18 [Rx] Insulin Glargine,Hum.rec.anlog [[place]ou[place]o Solostar] 50 units SQ AC-BID #0 04/03/18 [Rx] predniSONE 0 mg PO DIRECTED #70 tab 04/03/18 [Rx] Follow up Appointment(s)/Referral(s): Shari Rincon MD [Primary Care Provider] - 04/06/18 10:45 am Tali Yuan MD [STAFF PHYSICIAN] - 05/10/18 10:15 am Swathi Acosta MD [STAFF PHYSICIAN] - 04/13/18 1:00 pm Patient Instructions/Handouts: Prednisone (By mouth), Insulin Aspart, Recombinant (By injection), Diplopia (DC), Optic Neuritis (DC), Acute Wounds (DC ), Type 2 Diabetes in the Older Adult (DC) Discharge Disposition: HOME SELF-CARE
== END 2018-04-03 15:40 | disposition home or self-care (01) | DRG 74 ==
LOC: EC 14:02 → 3NMEDONC 15:25
PROVIDERS: ADMIT Internal Medicine Geriatric Medicine; ATTEND Internal Medicine Geriatric Medicine
DX: E11.41 Type 2 diabetes mellitus with diabetic mononeuropathy (principal); F33.9 Major depressive disorder, recurrent, unspecified; H46.9 Unspecified optic neuritis; H49.22 Sixth [abducent] nerve palsy, left eye; E11.65 Type 2 diabetes mellitus with hyperglycemia; E11.39 Type 2 diabetes mellitus with other diabetic ophthalmic complication; E11.51 Type 2 diabetes mellitus with diabetic peripheral angiopathy without gangrene; E11.22 Type 2 diabetes mellitus with diabetic chronic kidney disease; I12.9 Hypertensive chronic kidney disease with stage 1 through stage 4 chronic kidney disease, or unspecified chronic kidney disease; N18.3 Chronic kidney disease, stage 3 (moderate); Z87.891 Personal history of nicotine dependence; Z79.4 Long term (current) use of insulin; D63.8 Anemia in other chronic diseases classified elsewhere; E78.5 Hyperlipidemia, unspecified; J45.20 Mild intermittent asthma, uncomplicated; T38.0X5A Adverse effect of glucocorticoids and synthetic analogues, initial encounter; Z79.51 Long term (current) use of inhaled steroids; Z79.899 Other long term (current) drug therapy; Z82.49 Family history of ischemic heart disease and other diseases of the circulatory system; Z83.3 Family history of diabetes mellitus; Z89.412 Acquired absence of left great toe; Z89.421 Acquired absence of other right toe(s); Z88.0 Allergy status to penicillin; Z91.040 Latex allergy status; M54.9 Dorsalgia, unspecified; Z91.81 History of falling; G89.29 Other chronic pain; Z88.8 Allergy status to other drugs, medicaments and biological substances; Z80.9 Family history of malignant neoplasm, unspecified
CPT/HCPCS: 70551; 80048; 80061; 83036; 85025; 93880; 94640; 99284

== ENCOUNTER → 2020-01-28 | Outpatient (CLI) | payer BC ==
--- NOTE | 2020-01-28 13:35 | US ---
EXAMINATION TYPE: US kidneys/renal and bladder DATE OF EXAM: 01/28/2020 COMPARISON: NONE 01/09/2018 CLINICAL HISTORY: N18.3 CKD STAGE 3. EXAM MEASUREMENTS: Right Kidney: 11.0 x 4.8 x 4.0 cm Left Kidney: 9.4 x 4.1 x 4.0 cm Right Kidney: no evidence of hydronephrosis Left Kidney: no evidence of hydronephrosis Bladder: appears wnl Bilateral Jets seen: yes Mild cortical thinning noted. Cortical medullary differentiation maintained. IMPRESSION: No acute process.
== END | disposition home or self-care (01) ==
LOC: RADUSWWP 12:54
PROVIDERS: ATTEND Family Medicine
DX: N18.3 Chronic kidney disease, stage 3 (moderate) (principal)
CPT/HCPCS: 76770

== ENCOUNTER 2020-02-03 18:54 | Emergency (ER) | payer BC ==
[2020-02-03] MEDS ORDERED: IPRATROPIUM-ALBUTEROL 3 ML NEB INHALATION STA (19:16)
--- NOTE | 2020-02-03 19:24 | ED ---
General Adult HPI - General Source: patient Mode of arrival: wheelchair Limitations: no limitations <Zhanna Hung - Last Filed: 02/03/20 20:44> <Ranjana Ramírez - Last Filed: 02/05/20 15:13> - General Chief complaint: Back Pain/Injury Stated complaint: abd pain post kidney infection Time Seen by Provider: 02/03/20 19:05 - History of Present Illness Initial comments: 49-year-old female patient presents to the emergency department today for multiple complaints. Patient reports about 2 weeks ago she started to have some pain in her mid to low back. States that she was able to see her primary care physician for this did have urinalysis, lab testing, and ultrasound of her kidneys. She does have an MRI scheduled. States that she is unsure what her results were but on Monday her physician did start her on antibiotics for possible infection. Patient states she hasn't taken antibiotics which she is no t feeling any better. Patient states that she is having pain throughout the low back, now also in her neck. States that she is having pain wrapping around the left hip. States she is also having some numbness and tingling in her feet down the backs of her legs. Patient states that this pain is unusual for her. States that she does take Coral chronically for pain in her left buttock. Patient states that yesterday she started to get short of breath with ambulation. She is reporting chest tightness. She does have a history of asthma. Denies any cough or congestion. Does deny having any known fevers with a she has been chilled. Patient states she just isn't feeling well and is unsure what is going on. Patient denies any recent rash, abdominal pain, nausea, vomiting, diarrhea, constipation, numbness, tingling, dizziness, weakness, hematuria, dysuria, urinary urgency, urinary frequency, headache, visual changes, or any other complaints. (Zhanna Hung) - Related Data Home Medications Medication Instructions Recorded Confirmed Atorvastatin [Lipitor] 40 mg PO DAILY 02/04/18 05/21/18 Budesonide-Formot 160-4.5 Mcg 2 puff INHALATION RT-BID 02/04/18 05/21/18 [Symbicort 160-4.5 Mcg Inhaler] hydrALAZINE HCL [Apresoline] 100 mg PO TID 12/02/18 01/21/19 FLUoxetine HCL [PROzac] 10 mg PO DAILY 04/02/18 05/21/18 Furosemide [Lasix] 20 mg PO DAILY 04/02/18 05/21/18 Repaglinide [Prandin] 2 mg PO TID-W/MEALS 04/02/18 05/21/18 buPROPion HCL [Wellbutrin SR] 200 mg PO BID 04/02/18 05/21/18 Previous Rx's Medication Instructions Recorded HYDROcodone/APAP 5-325MG [Coral 1 each PO TID PRN #9 tab 02/09/18 5-325] Insulin Aspart [NovoLOG Flexpen] 10 units SQ AC-TID #3 pen 04/03/18 Insulin Glargine,Hum.rec.anlog 50 units SQ AC-BID #0 04/03/18 [Toujeo Solostar] predniSONE [Deltasone] 0 mg PO DIRECTED #70 tab 04/03/18 Allergies Allergy/AdvReac Type Severity Reaction Status Date / Time banana Allergy Nausea & Verified 02/03/20 19:03 Vomiting latex Allergy Rash/Hives Verified 02/03/20 19:03 mushroom Allergy Nausea & Verified 02/03/20 19:03 Vomiting Penicillins Allergy Rash/Hives Verified 02/03/20 19:03 Review of Systems ROS Other: All systems not noted in ROS Statement are negative. <Zhanna Hung - Last Filed: 02/03/20 20:44> ROS Other: All systems not noted in ROS Statement are negative. <Ranjana Ramírez - Last Filed: 02/05/20 15:13> ROS Statement: Those systems with pertinent positive or pertinent negative responses have been documented in the HPI. Past Medical History Past Medical History: Diabetes Mellitus, Renal Disease Additional Past Medical History / Comment(s): Fell a few years ago and it caused chronic back pain, right wrist carpal tunnel (wears brace), previous reports from imaging tests state CKD stage 3 History of Any Multi-Drug Resistant Organisms: None Reported Additional Past Surgical History / Comment(s): Fifth digit amputation right foot, oral surgery.lt. great toe amp Past Anesthesia/Blood Transfusion Reactions: No Reported Reaction Past Psychological History: Depression, Depression Smoking Status: Never smoker Past Alcohol Use History: None Reported Past Drug Use History: None Reported - Past Family History Mother Family Medical History: Dementia, Diabetes Mellitus Father Family Medical History: Cancer, Coronary Artery Disease (CAD), Deep Vein Thrombosis (DVT) Additional Family Medical History / Comment(s): Quadruple bypass. One brother and sister both healthy. No children <Zhanna Hung - Last Filed: 02/03/20 20:44> General Exam Limitations: no limitations General appearance: alert, in no apparent distress, other (This is a well- developed, well-nourished adult female patient in no acute distress. Vital signs upon presentation are temperature 97.8F, pulse 100, respirations 18, blood pressure 149/87, pulse ox 97% on room air.) Eye exam: Present: normal appearance, PERRL, EOMI. Absent: scleral icterus, conjunctival injection, periorbital swelling ENT exam: Present: normal exam, normal oropharynx, mucous membranes moist Respiratory exam: Present: wheezes (Faint expiratory wheezing noted in the posterior lung olw). Absent: normal lung sounds bilaterally, respiratory distress, rales, rhonchi, stridor Cardiovascular Exam: Present: regular rate, normal rhythm, normal heart sounds. Absent: systolic murmur, diastolic murmur, rubs, gallop, clicks GI/Abdominal exam: Present: soft, normal bowel sounds. Absent: distended, tenderness, guarding, rebound, rigid Back exam: Present: normal inspection, vertebral tenderness (Lumbar) Neurological exam: Present: alert, oriented X3, CN II-XII intact Psychiatric exam: Present: normal affect, normal mood Skin exam: Present: warm, dry, intact, normal color. Absent: rash <KelsieZhanna levine - Last Filed: 02/03/20 20:44> Course Vital Signs 02/03/20 02/03/20 02/03/20 18:56 20:10 20:20 Temperature 97.8 F Pulse Rate 100 84 84 Respiratory 18 Rate Blood Pressure 149/87 O2 Sat by Pulse 97 Oximetry 02/03/20 22:15 Temperature 98.3 F Pulse Rate 96 Respiratory 19 Rate Blood Pressure 135/80 O2 Sat by Pulse 96 Oximetry EKG Findings - EKG Comments: EKG Findings:: EKG obtained in 1938 shows normal sinus rhythm with a ventricular rate of 85,. Interval 164, QRS duration 88, QT 386, QTc 459. No evidence of ST elevation or depression. <Zhanna Hung - Last Filed: 02/03/20 20:44> Medical Decision Making - Lab Data Result diagrams: 02/03/20 19:23 02/03/20 19:23 - Radiology Data Radiology results: report reviewed <Zhanna Hung - Last Filed: 02/03/20 20:44> - Lab Data Result diagrams: 02/03/20 19:23 02/03/20 19:23 <Ranjana Ramírez - Last Filed: 02/05/20 15:13> - Medical Decision Making 49-year-old female patient presents to the emergency department today for evaluation of increased back pain, body aches, shortness of breath, and chills. She is also reporting numbness and tingling to the feet bilaterally. EKG showed normal sinus rhythm. Vital signs did reveal mildly elevated blood pressure. Labs reviewed and were unremarkable. Kidney function is consistent with her previous labs. Urinalysis shows no signs of infection. She did have a nodule noted on her chest xray, I did inform her of this and she is instructed to have this evaluated by her primary care physician. She is afebrile. She will be discharged home to follow-up with her primary care physician for recheck in 1-2 days per chills have an MRI of her back coming up, she is urged to keep this appointment. Return parameters were discussed in detail. Verbalizes understanding and agrees this plan. (Zhanna Hung) I was available for consultation in the emergency department. The history and physical exam were done by the midlevel provider. I was consulted for this patients care. I reviewed the case with the midlevel provider and based on their presentation of the patient, I agree with the assessment, medical decision making and plan of care as documented. Chart was dictated using [employer] dictation software. Attempts were made to correct any dictation errors however some typographical errors may persist. (Ranjana Ramírez) - Lab Data Lab Results 02/03/20 02/03/20 02/03/20 Range/Units 19:23 19:23 19:23 WBC 7.5 (3.8-10.6) k/uL RBC 4.75 (3.80-5.40) m/uL Hgb 14.8 (11.4-16.0) gm/dL Hct 44.0 (34.0-46.0) % MCV 92.7 (80.0-100.0) fL MCH 31.3 (25.0-35.0) pg MCHC 33.7 (31.0-37.0) g/dL RDW 12.1 (11.5-15.5) % Plt Count 200 (150-450) k/uL Neutrophils % 74 % Lymphocytes % 16 % Monocytes % 5 % Eosinophils % 3 % Basophils % 1 % Neutrophils # 5.5 (1.3-7.7) k/uL Lymphocytes # 1.2 (1.0-4.8) k/uL Monocytes # 0.4 (0-1.0) k/uL Eosinophils # 0.2 (0-0.7) k/uL Basophils # 0.1 (0-0.2) k/uL PT 12.3 H (9.0-12.0) sec INR 1.2 H (<1.2) APTT 25.5 (22.0-30.0) sec Sodium (137-145) mmol/L Potassium (3.5-5.1) mmol/L Chloride (98-107) mmol/L Carbon Dioxide (22-30) mmol/L Anion Gap mmol/L BUN (7-17) mg/dL Creatinine (0.52-1.04) mg/dL Est GFR (CKD-EPI)AfAm (>60 ml/min/1.73 sqM) Est GFR (CKD-EPI)NonAf (>60 ml/min/1.73 sqM) Glucose (74-99) mg/dL Plasma Lactic Acid Ramon (0.7-2.0) mmol/L Calcium (8.4-10.2) mg/dL Magnesium (1.6-2.3) mg/dL Total Bilirubin (0.2-1.3) mg/dL AST (14-36) U/L ALT (4-34) U/L Alkaline Phosphatase (38-126) U/L Troponin I (0.000-0.034) ng/mL Total Protein (6.3-8.2) g/dL Albumin (3.5-5.0) g/dL Urine Color Light Yellow Urine Appearance Clear (Clear) Urine pH 5.5 (5.0-8.0) Ur Specific [place] 1.007 (1.001-1.035) Urine Protein Negative (Negative) Urine Glucose (UA) 3+ H (Negative) Urine Ketones Negative (Negative) Urine Blood Negative (Negative) Urine Nitrite Negative (Negative) Urine Bilirubin Negative (Negative) Urine Urobilinogen <2.0 (<2.0) mg/dL Ur Leukocyte Esterase Negative (Negative) 02/03/20 02/03/20 02/03/20 Range/Units 19:23 19:23 19:23 WBC (3.8-10.6) k/uL RBC (3.80-5.40) m/uL Hgb (11.4-16.0) gm/dL Hct (34.0-46.0) % MCV (80.0-100.0) fL MCH (25.0-35.0) pg MCHC (31.0-37.0) g/dL RDW (11.5-15.5) % Plt Count (150-450) k/uL Neutrophils % % Lymphocytes % % Monocytes % % Eosinophils % % Basophils % % Neutrophils # (1.3-7.7) k/uL Lymphocytes # (1.0-4.8) k/uL Monocytes # (0-1.0) k/uL Eosinophils # (0-0.7) k/uL Basophils # (0-0.2) k/uL PT (9.0-12.0) sec INR (<1.2) APTT (22.0-30.0) sec Sodium 133 L (137-145) mmol/L Potassium 4.2 (3.5-5.1) mmol/L Chloride 97 L (98-107) mmol/L Carbon Dioxide 28 (22-30) mmol/L Anion Gap 8 mmol/L BUN 30 H (7-17) mg/dL Creatinine 1.77 H (0.52-1.04) mg/dL Est GFR (CKD-EPI)AfAm 38 (>60 ml/min/1.73 sqM) Est GFR (CKD-EPI)NonAf 33 (>60 ml/min/1.73 sqM) Glucose 282 H (74-99) mg/dL Plasma Lactic Acid Ramon 1.2 (0.7-2.0) mmol/L Calcium 9.5 (8.4-10.2) mg/dL Magnesium 1.8 (1.6-2.3) mg/dL Total Bilirubin 0.6 (0.2-1.3) mg/dL AST 43 H (14-36) U/L ALT 42 H (4-34) U/L Alkaline Phosphatase 94 (38-126) U/L Troponin I <0.012 (0.000-0.034) ng/mL Total Protein 7.3 (6.3-8.2) g/dL Albumin 4.5 (3.5-5.0) g/dL Urine Color Urine Appearance (Clear) Urine pH (5.0-8.0) Ur Specific [place] (1.001-1.035) Urine Protein (Negative) Urine Glucose (UA) (Negative) Urine Ketones (Negative) Urine Blood (Negative) Urine Nitrite (Negative) Urine Bilirubin (Negative) Urine Urobilinogen (<2.0) mg/dL Ur Leukocyte Esterase (Negative) Disposition Is patient prescribed a controlled substance at d/c from ED?: No Time of Disposition: 20:42 <Zhanna Hung - Last Filed: 02/03/20 20:44> <Ranjana Ramírez - Last Filed: 02/05/20 15:13> Clinical Impression: Low back pain, Body aches, Peripheral neuropathy, Hyperglycemia due to diabetes mellitus, Wheezing Disposition: HOME SELF-CARE Condition: Good Instructions (If sedation given, give patient instructions): Back Pain (ED), Diabetic Hyperglycemia (ED), Wheezing (ED) Additional Instructions: Increase fluids. Rest. Follow-up with your primary care physician for recheck in 1-2 days. Return to the emergency department immediately for any new, worsening, or concerning symptoms. Referrals: Shari Rincon MD [Primary Care Provider] - 1-2 days
[2020-02-03 19:37] LABS: Basophils # (A) 0.1 k/uL (0-0.2); Basophils % (A) 1 %; Eosinophils # (A) 0.2 k/uL (0-0.7); Eosinophils % (A) 3 %; HGB 14.8 gm/dL (11.4-16.0); Lymphocytes # (A) 1.2 k/uL (1.0-4.8); Lymphocytes % (A) 16 %; MCH 31.3 pg (25.0-35.0); MCHC 33.7 g/dL (31.0-37.0); MCV 92.7 fL (80.0-100.0); Mean Platelet Volume 7.4; Monocytes # (A) 0.4 k/uL (0-1.0); Monocytes % (A) 5 %; Neutrophils # (A) 5.5 k/uL (1.3-7.7); Neutrophils % (A) 74 %; Platelet Count 200 k/uL (150-450); RBC 4.75 m/uL (3.80-5.40); RDW 12.1 % (11.5-15.5); WBC 7.5 k/uL (3.8-10.6)
[2020-02-03 19:48] LABS: Appearance,Urine Clear (Clear); Bilirubin,Urine Negative (Negative); Blood,Urine Negative (Negative); Color,Urine Light Yellow; Glucose,Urine (UA) 3+ (Negative); Ketones,Urine Negative (Negative); Leukocyte Esterase,Urine Negative (Negative); Nitrite,Urine Negative (Negative); PH, Urine 5.5 (5.0-8.0); Protein,Urine Negative (Negative); Specific Gravity,Urine 1.007 (1.001-1.035); Urobilinogen,Urine <2.0 mg/dL (<2.0)
[2020-02-03 19:53] LABS: Albumin 4.5 g/dL (3.5-5.0); Calcium 9.5 mg/dL (8.4-10.2); Magnesium 1.8 mg/dL (1.6-2.3); Potassium 4.2 mmol/L (3.5-5.1); Total Bilirubin 0.6 mg/dL (0.2-1.3); Total Protein 7.3 g/dL (6.3-8.2)
[2020-02-03 20:00] LABS: INR 1.2 (<1.2); Partial Thromboplastin Time 25.5 sec (22.0-30.0); Prothrombin Time 12.3 sec (9.0-12.0)
--- NOTE | 2020-02-03 20:01 | XR ---
EXAMINATION TYPE: XR chest 2V DATE OF EXAM: 02/03/2020 COMPARISON: NONE HISTORY: Difficulty breathing TECHNIQUE: Frontal and lateral views of the chest are obtained. FINDINGS: There is no focal air space opacity, pleural effusion, or pneumothorax seen. Question a n odular density at the left lung apex, possibly calcified and related to old granulomatous disease. Th e cardiac silhouette size is within normal limits. The osseous structures are intact. IMPRESSION: No acute cardiopulmonary process. Indeterminate left upper lobe lung nodule, follow-up r ecommended.
[2020-02-03 22:20] VITALS: BP 135/80; PULSE 96; RESP 19; TEMP 98.3
== END 2020-02-03 22:15 | disposition home or self-care (01) ==
LOC: EC 18:54
DX: E11.65 Type 2 diabetes mellitus with hyperglycemia (principal); E11.42 Type 2 diabetes mellitus with diabetic polyneuropathy; R03.0 Elevated blood-pressure reading, without diagnosis of hypertension; N18.30 Chronic kidney disease, stage 3 unspecified; M54.5 Low back pain; R06.02 Shortness of breath; R07.89 Other chest pain; R68.83 Chills (without fever); E11.22 Type 2 diabetes mellitus with diabetic chronic kidney disease; M25.552 Pain in left hip; J45.909 Unspecified asthma, uncomplicated; Z79.84 Long term (current) use of oral hypoglycemic drugs; Z79.51 Long term (current) use of inhaled steroids; Z79.899 Other long term (current) drug therapy; Z91.018 Allergy to other foods; Z91.040 Latex allergy status; Z88.0 Allergy status to penicillin
CPT/HCPCS: 36415; 71046; 80053; 81003; 83605; 83735; 84484; 85025; 85610; 85730; 93005; 94640; 99284

== ENCOUNTER → 2020-02-24 | Outpatient (CLI) | payer BC ==
--- NOTE | 2020-02-24 16:52 | MR ---
EXAMINATION TYPE: MR lumbar spine wo con DATE OF EXAM: 02/24/2020 COMPARISON: CT 05/02/2017 HISTORY: Lower back pain TECHNIQUE: Multiplanar, multisequence images of the lumbar spine were acquired. L1-L2: Normal disc appearance without desiccation. No herniation, protrusion or disc bulging. No ca nal stenosis is present. Foramina are patent bilaterally. L2-L3: There is Schmorl's nodes present. Posterior broad-based disc bulge causes minimal anterior mas s effect on the thecal sac. L3-L4: Normal disc appearance without desiccation. No herniation, protrusion or disc bulging. No ca nal stenosis is present. Foramina are patent bilaterally. L4-L5: There is loss of disc height signal. Posterior disc herniation is broad-based and causes only mild anterior mass effect on the thecal sac. No significant foraminal encroachment or spinal stenosis . L5-S1: Suspect a lateral disc herniation seen only in the axial images towards the right of midline a nd incompletely evacuated correlate for right L5 radiculopathy. Lumbar segments are intact. No paraspinal masses are identified. Conus medullaris has a normal appe arance. Lumbar vertebral bodies show preserved height and alignment. There is mild multilevel spondyl osis and endplate discogenic marrow signal change. IMPRESSION: Suspect a lateral disc herniation as described at L5-S1. Posterior broad-based disc bulge L4-5.
== END | disposition home or self-care (01) ==
LOC: RADMRIMAIN 15:37
PROVIDERS: ATTEND Family Medicine
DX: M51.26 Other intervertebral disc displacement, lumbar region (principal)
CPT/HCPCS: 72148

== ENCOUNTER 2020-04-01 12:15 | Emergency (ER) | payer BC ==
[2020-04-01 12:32] VITALS: BP 160/87; PULSE 75; RESP 18; TEMP 98.3
[2020-04-01] MEDS ORDERED: ACET/COD 300 MG/30 MG STARTER PACK 6 TAB BTL PO STA (12:42)
--- NOTE | 2020-04-01 13:01 | XR ---
EXAMINATION TYPE: XR knee complete RT DATE OF EXAM: 04/01/2020 COMPARISON: NONE HISTORY: 49-year-old female with anterior knee pain TECHNIQUE: 3 views FINDINGS: Trace suprapatellar joint effusion. Minimal anterior soft tissue swelling. Minimal marginal spurring patellofemoral compartment and medial compartment. No acute fracture, subluxation, or dislocation see n. IMPRESSION: Minimal anterior soft tissue swelling and a trace suprapatellar knee joint effusion. Minimal degenera tive spurring in the patellofemoral and medial compartments. No acute osseous abnormality seen.
--- NOTE | 2020-04-01 13:05 | ED ---
Lower Extremity Injury HPI - General Chief Complaint: Extremity Injury, Lower Stated Complaint: R Knee Pain Time Seen by Provider: 04/01/20 12:34 Source: patient Mode of arrival: ambulatory Limitations: no limitations - History of Present Illness Initial Comments: 49-year-old female presenting today for chief complaint of anterior right knee pain. Patient states she startles with chronic right leg pain that radiates from her low back she states has a MRI that showed a herniated disc she states that this pain feels different as localized anteriorly she denies any redness or swelling she states that increases with bending. Patient states that she has had sensation decreased on the lateral aspect of her right foot she states is associated with the disc herniation has been ongoing for quite some time. Patient denies any fevers chills general malaise she denies inability to ambulate. Remainder review of system negative - Related Data Home Medications Medication Instructions Recorded Confirmed Atorvastatin [Lipitor] 40 mg PO DAILY 02/04/18 05/21/18 Budesonide-Formot 160-4.5 Mcg 2 puff INHALATION RT-BID 02/04/18 05/21/18 [Symbicort 160-4.5 Mcg Inhaler] hydrALAZINE HCL [Apresoline] 100 mg PO TID 04/01/18 05/21/18 FLUoxetine HCL [PROzac] 10 mg PO DAILY 04/02/18 05/21/18 Furosemide [Lasix] 20 mg PO DAILY 04/02/18 05/21/18 Repaglinide [Prandin] 2 mg PO TID-W/MEALS 04/02/18 05/21/18 buPROPion HCL [Wellbutrin SR] 200 mg PO BID 04/02/18 05/21/18 Previous Rx's Medication Instructions Recorded HYDROcodone/APAP 5-325MG [[place] 1 each PO TID PRN #9 tab 02/09/18 5-325] Insulin Aspart [NovoLOG Flexpen] 10 units SQ AC-TID #3 pen 04/03/18 Insulin Glargine,Hum.rec.anlog 50 units SQ AC-BID #0 04/03/18 [Toucynthia Solostar] predniSONE [Deltasone] 0 mg PO DIRECTED #70 tab 04/03/18 Allergies Allergy/AdvReac Type Severity Reaction Status Date / Time banana Allergy Nausea & Verified 04/01/20 12:29 Vomiting latex Allergy Rash/Hives Verified 04/01/20 12:29 mushroom Allergy Nausea & Verified 04/01/20 12:29 Vomiting Penicillins Allergy Rash/Hives Verified 04/01/20 12:29 Review of Systems ROS Statement: Those systems with pertinent positive or pertinent negative responses have been documented in the HPI. ROS Other: All systems not noted in ROS Statement are negative. Past Medical History Past Medical History: Diabetes Mellitus, Renal Disease Additional Past Medical History / Comment(s): Fell a few years ago and it caused chronic back pain, right wrist carpal tunnel (wears brace), previous reports from imaging tests state CKD stage 3 History of Any Multi-Drug Resistant Organisms: None Reported Additional Past Surgical History / Comment(s): Fifth digit amputation right foot, oral surgery.lt. great toe amp Past Anesthesia/Blood Transfusion Reactions: No Reported Reaction Past Psychological History: Depression, Depression Smoking Status: Former smoker Past Alcohol Use History: None Reported Past Drug Use History: None Reported - Past Family History Mother Family Medical History: Dementia, Diabetes Mellitus Father Family Medical History: Cancer, Coronary Artery Disease (CAD), Deep Vein Thrombosis (DVT) Additional Family Medical History / Comment(s): Quadruple bypass. One brother and sister both healthy. No children General Exam - General Exam Comments Initial Comments: General: The patient is awake and alert, in no distress Eye: +3 mm pupils are equal, round and reactive to light, extra-ocular movements are intact. No nystagmus. There is normal conjunctiva bilaterally. No signs of icterus. Ears, nose, mouth and throat: There are moist mucous membranes and no oral lesions. Neck: The neck is supple, there is no tenderness or JVD. Cardiovascular: There is a regular rate and rhythm. No murmur, rub or gallop is appreciated. Respiratory: Lungs are clear to auscultation, respirations are non-labored, breath sounds are equal. No wheezes, stridor, rales, or rhonchi. Gastrointestinal: Soft, non-distended, non-tender abdomen without masses or organomegaly noted. There is no rebound or guarding present. Musculoskeletal: Normal gross inspection of the knees bilaterally no redness no obvious swelling. She has anterior pain to palpation of the right knee. No posterior pain no calf pain or swelling. No swelling of the foot. Patient can fully range without pain out of proportion of the right knee patient is able to weight-bear and ambulate. Sensation intact proximal distal to injury site. Patient is able to have full sensation of the lateral right foot. States is slightly decreased from the rest the foot. Radial and DP pulses equal bilaterally 2+. Heart rate soft and compressible. Neurological: A&O x 3. CN II-XII intact grossly, There are no obvious motor or sensory deficits. Coordination appears grossly intact. Speech is normal. Skin: Skin is warm and dry and no rashes or lesions are noted. Psychiatric: Cooperative, appropriate mood & affect, normal judgment. Limitations: no limitations Course Vital Signs 04/01/20 12:29 Temperature 98.3 F Pulse Rate 75 Respiratory 18 Rate Blood Pressure 160/87 O2 Sat by Pulse 98 Oximetry Medical Decision Making - Medical Decision Making Patient neurovascularly intact no clinical findings suggestive of an septic arthritis. There is a suprapatellar fluid collection. pt is to rest ice elevate and compress knee, return for increasing pain/redness/fevers patient may follow-up with orthopedic surgery.Discussed case with a provider Dr. Owens was agreeable to care plan discharge Disposition Clinical Impression: Right knee pain Disposition: HOME SELF-CARE Condition: Good Instructions (If sedation given, give patient instructions): Knee Pain (ED) Additional Instructions: Please use medication as discussed. Please follow-up with orthopedist surgery in the next 2 days. Please return to emergency room if the symptoms increase or worsen or for any other concerns. Is patient prescribed a controlled substance at d/c from ED?: No Referrals: Shari Rincon MD [Primary Care Provider] - 1-2 days Time of Disposition: 13:05
== END 2020-04-01 13:15 | disposition home or self-care (01) ==
LOC: EC 12:15
DX: M25.561 Pain in right knee (principal); M54.5 Low back pain; N18.30 Chronic kidney disease, stage 3 unspecified; E11.22 Type 2 diabetes mellitus with diabetic chronic kidney disease; Z79.84 Long term (current) use of oral hypoglycemic drugs; Z88.0 Allergy status to penicillin; Z91.018 Allergy to other foods; Z91.040 Latex allergy status; Z87.891 Personal history of nicotine dependence
CPT/HCPCS: 99283

== ENCOUNTER → 2021-01-21 | Outpatient (CLI) | payer BC ==
--- NOTE | 2021-01-22 09:47 | MM ---
Reason for exam: screening (asymptomatic). Last mammogram was performed 4 years and 8 months ago. History: Patient is postmenopausal and is nulliparous. Family history of breast cancer in maternal aunt. Physical Findings: A clinical breast exam by your physician is recommended on an annual basis and results should be correlated with mammographic findings. MG 3D Screening Mammo W/Cad Bilateral CC and MLO view(s) were taken. Prior study comparison: May 11, 2016, bilateral MG screening mammo w CAD. There are scattered fibroglandular densities. No significant changes when compared with prior studies. ASSESSMENT: Negative, BI-RAD 1 RECOMMENDATION: Routine screening mammogram of both breasts in 1 year.
== END | disposition home or self-care (01) ==
LOC: RADMAMWWP 10:15
PROVIDERS: ATTEND Family Medicine
DX: Z12.31 Encounter for screening mammogram for malignant neoplasm of breast (principal); Z78.0 Asymptomatic menopausal state; Z80.3 Family history of malignant neoplasm of breast
CPT/HCPCS: 77063; 77067

== ENCOUNTER → 2021-12-10 | Outpatient (CLI) | payer BC ==
--- NOTE | 2021-12-10 16:42 | XR ---
EXAMINATION TYPE: XR abdomen 1V DATE OF EXAM: 12/10/2021 COMPARISON: None INDICATION: Diarrhea TECHNIQUE: Single view abdomen FINDINGS: There is a normal bowel gas pattern. Psoas margins are normal. No organomegaly is present. IMPRESSION: 1. Unremarkable Abdomen
== END | disposition home or self-care (01) ==
LOC: RADXRMAIN 13:44
PROVIDERS: ATTEND Family Medicine
DX: R19.7 Diarrhea, unspecified (principal)
CPT/HCPCS: 74018

== ENCOUNTER → 2022-02-22 | Outpatient (CLI) | payer BC ==
--- NOTE | 2022-02-22 11:39 | US ---
EXAMINATION TYPE: US kidneys/renal and bladder DATE OF EXAM: 02/22/2022 COMPARISON: US CLINICAL HISTORY: N18.32 CHRONIC KIDNEY DISEASE, STAGE 3B. CKD Stage 3b. EXAM MEASUREMENTS: Right Kidney: 11.0 x 7.0 x 5.1 cm Left Kidney: 9.4 x 4.5 x 4.4 cm Right Kidney: No hydronephrosis or masses seen . No shadowing calculi. Cortical medullary differenti ation is maintained. Left Kidney: No hydronephrosis or masses seen . No shadowing calculi. Cortical medullary differentia tion is maintained. Bladder: Appears anechoic Bilateral Jets seen: Yes *Spleen measures 13.5 cm in greatest dimension which is at the top end of normal for size. IMPRESSION: No hydronephrosis or shadowing renal calculi.
== END | disposition home or self-care (01) ==
LOC: RADUSWWP 08:57
PROVIDERS: ATTEND Internal Medicine Nephrology
DX: N18.32 Chronic kidney disease, stage 3b (principal)
CPT/HCPCS: 76770

== ENCOUNTER → 2022-04-22 | Outpatient (CLI) | payer BC ==
--- NOTE | 2022-04-22 10:03 | US ---
EXAMINATION TYPE: US abdomen complete DATE OF EXAM: 04/22/2022 COMPARISON: NONE CLINICAL HISTORY: R10.9 UNSPECIFIED ABD PAIN. fatigue, protein in urine, new diabetic, abd pain TECHNIQUE: Multiple sonographic images of the abdomen are obtained. FINDINGS: EXAM MEASUREMENTS: Liver Length: 21.5 cm Gallbladder Wall: 0.2 cm CBD: 0.7 cm Spleen: 13.6 cm Right Kidney: 9.5 x 3.8 x 4.9 cm Left Kidney: 9.4 x 4.7 x 4.3 cm Pancreas: not seen due to bowel gas Liver: enlarfed, difficult to penetrate Gallbladder: wnl Evidence for sonographic Vizcarra's sign: no CBD: wnl Spleen: slightly enlarged Right Kidney: wnl Left Kidney: wnl Upper IVC: wnl Abd Aorta: wnl The intrahepatic portion of the IVC and proximal abdominal aorta are within normal limits. There is no evidence of cholelithiasis. Common bile duct is unremarkable. The visualized portions of the nath creas are homogenous. Kidneys are symmetric and free of hydronephrosis. No renal lesions are seen. IMPRESSION: 1. Hepatomegaly with underlying hepatic steatosis. 2. Mild splenomegaly.
== END | disposition home or self-care (01) ==
LOC: RADUSWWP 09:31
PROVIDERS: ATTEND Family Medicine
DX: K76.0 Fatty (change of) liver, not elsewhere classified (principal); E11.9 Type 2 diabetes mellitus without complications; R16.2 Hepatomegaly with splenomegaly, not elsewhere classified
CPT/HCPCS: 76700

== ENCOUNTER → 2022-04-29 | Outpatient (CLI) | payer BC ==
--- NOTE | 2022-04-29 15:57 | NM ---
EXAMINATION TYPE: NM hepatobiliary w CCK DATE OF EXAM: 04/29/2022 COMPARISON: Ultrasound 04/22/2022 HISTORY: 51-year-old female R1 0.9, abdominal pain TECHNIQUE: After the intravenous administration of 3.6 mCi Tc 99m Mebrofenin hepatobiliary scintigrap hy is performed. Immediate images post injection. FINDINGS: There is satisfactory initial accumulation of tracer by the liver. The gallbladder is visualized wit hin 90 minutes. The small bowel activity is noted within 4 minutes. At 90 minutes CCK was administe red, patient was injected with 2.2 mcg of Kinevac, and gallbladder ejection fraction is calculated at 89%. IMPRESSION: 1. No scintigraphic evidence for acute/chronic cholecystitis or biliary dyskinesia. 2. Increased gallbladder ejection fraction nearing 90%. Findings may be seen with gallbladder hyperki nesis.
== END | disposition home or self-care (01) ==
LOC: RADNMMAIN 12:44
PROVIDERS: ATTEND Family Medicine
DX: R10.9 Unspecified abdominal pain (principal)
CPT/HCPCS: 78227; A9537; J2805

== ENCOUNTER → 2022-05-23 | Outpatient (CLI) | payer BC ==
[2022-05-23 18:39] LABS: Basophils # (A) 0.04 X 10*3/uL (0.00-0.10); Basophils % (A) 0.8 %; Eosinophils # (A) 0.18 X 10*3/uL (0.04-0.35); Eosinophils % (A) 3.7 %; HCT 40.5 % (37.2-46.3); HGB 13.4 g/dL (12.0-15.0); Immature Grans, Automated 0.2 %; Lymphocytes # (A) 1.45 X 10*3/uL (0.90-5.00); Lymphocytes % (A) 29.5 %; MCH 30.7 pg (27.0-32.0); MCHC 33.1 g/dL (32.0-37.0); MCV 92.7 fL (80.0-97.0); Mean Platelet Volume 10.8 fL (9.5-12.2); Monocytes % (A) 8.1 %; NRBC Per 100 WBC 0 /100 WBCS (0.0-0.0); Neutrophils # (A) 2.83 X 10*3/uL (1.80-7.70); Neutrophils % (A) 57.7 %; Platelet Count 207 X 10*3/uL (140-440); RBC 4.37 X 10*6/uL (4.10-5.20); RDW 11.3 % (11.5-14.5); WBC 4.91 X 10*3/uL (4.50-10.00)
[2022-05-23 19:42] LABS: % Iron Saturation 34.82 (12.00-45.00); African American GFR (CKD) 42.2 (60.0-200.0); Albumin 4.4 g/dL (3.8-4.9); Anion Gap 14.4 mmol/L (10.00-18.00); BUN/Creat Ratio 10.87 Ratio (12.00-20.00); Blood Urea Nitrogen 17.5 mg/dL (9.0-27.0); Calcium 9.8 mg/dL (8.7-10.3); Carbon Dioxide 28.3 mmol/L (20.0-27.5); Non-African American GFR(CKD) 36.4 (60.0-200.0); Potassium 4.2 mmol/L (3.5-5.5)
[2022-05-23 20:02] LABS: Appearance,Urine Clear (Clear); Bilirubin,Urine Negative (Negative); Blood,Urine Negative (Negative); Color,Urine Yellow (Yellow); Ketones,Urine Trace mg/dL (Negative); Nitrite,Urine Negative (Negative); PH, Urine 5.5 (5.0-8.0); Specific Gravity,Urine 1.018 (1.001-1.030); Urobilinogen,Urine 0.2 (0.2,1.0)
[2022-05-23 21:59] LABS: Bacteria,Urine None Seen /HPF (None Seen)
== END | disposition home or self-care (01) ==
LOC: LABWHC1 12:32
PROVIDERS: ATTEND Family Medicine
DX: K90.0 Celiac disease (principal); N39.0 Urinary tract infection, site not specified; N18.32 Chronic kidney disease, stage 3b; D63.1 Anemia in chronic kidney disease; R80.9 Proteinuria, unspecified
CPT/HCPCS: 36415; 80048; 81001; 82040; 82043; 82570; 82728; 83540; 83550; 85025

== ENCOUNTER 2022-07-22 07:24 | Day surgery (SDC) | payer BC ==
[~2022-07-22 07:24] MED LIST: LACTATED RINGERS 1,000 ML IV SCH; LIDOCAINE 1% (10MG/ML) FOR IV START INTRADERMA PRN
[2022-07-22 07:59] VITALS: TEMP 97.2
[2022-07-22 08:02] LABS: Glucose,Whole Blood 147 mg/dL (70-110)
[2022-07-22] MEDS ORDERED: LIDOCAINE 2% INJ 20 MG/ML (2 ML VIAL) ONE (08:40)
[2022-07-22] MEDS ORDERED: PROPOFOL 10 MG/ML 20 ML VIAL IV ONE (08:40)
--- NOTE | 2022-07-22 09:04 | P.PCN ---
Date of Procedure: 07/22/22 Procedure(s) Performed: Brief history: Patient is a pleasant 51-year-old white female scheduled for an upper endoscopy as well as colonoscopy as a part of evaluation of GERD and change in bowel habits. She is been having alternating diarrhea and constipation for the last 1 year duration. Denies any rectal bleeding. Procedure performed: Esophagogastroduodenoscopy with biopsy Colonoscopy with snare polypectomy Preoperative diagnosis: GERD Change in bowel habits Anesthesia: MAC Procedure: After informed consent was obtained from the patient was brought into the endoscopy unit and IV sedation was administered by anesthesia under continuous monitoring. Initially upper endoscopy was done. The Olympus GF 160 video endoscope was inserted inserted into the mouth and esophagus intubated without any difficulty and was gradually advanced into the stomach and duodenum and carefully examined. The bulb and second part of the duodenum appeared normal and biopsies were done from the duodenum to rule out celiac disease.. The scope was then withdrawn into the stomach adequately insufflated with air and upon careful examination the antrum mild gastritis and biopsies were done from this area. Mucosa of the body, cardia and fundus appeared normal. The scope was then withdrawn into the esophagus. The GE junction was located at 40 cm to the incisors. It appeared regular with no erythema erosions or ulcerations. Rest of the esophagus appeared normal. Patient tolerated the procedure well. At this time the patient continued to remain sedation. Initial digital rectal examination was normal. Olympus CF 160 video colonoscope was then inserted into the rectum and gradually advanced to the cecum without any difficulty. Careful examination was performed as the scope was gradually being withdrawn. The prep was excellent. The cecum, ascending colon, transverse colon, descending colon, sigmoid colon and rectum appeared normal. Retroflexion was performed in the rectum and no lesions were noted. Patient tolerated the procedure well. Impression: 1. Upper endoscopy revealed mild antral gastritis and LA grade B reflux esophagitis 2. Colonoscopy revealed a 5 mm with transverse colon polyp status post polypectomy and rest of the colon appeared normal. Recommendations Findings of this examination were discussed with the patient as well as and her family.. She was advised to follow with the biopsy results. Trial of Pepcid 20 mg twice daily and follow antireflux measures. Repeated repeat screening colonoscopy in 10 years.
[2022-07-22 09:10] VITALS: PULSE 74
[2022-07-22 09:28] VITALS: BP 128/76; RESP 18
== END 2022-07-22 10:17 | disposition home or self-care (01) ==
LOC: ORWHC2ENDO 07:24
PROVIDERS: ATTEND Internal Medicine Gastroenterology
DX: K29.50 Unspecified chronic gastritis without bleeding (principal); K21.00 Gastro-esophageal reflux disease with esophagitis, without bleeding; K63.5 Polyp of colon; E78.5 Hyperlipidemia, unspecified; J45.909 Unspecified asthma, uncomplicated; N18.30 Chronic kidney disease, stage 3 unspecified; F32.A Depression, unspecified; Z88.0 Allergy status to penicillin; Z79.899 Other long term (current) drug therapy; Z91.040 Latex allergy status; Z87.891 Personal history of nicotine dependence
CPT/HCPCS: 88305; 45385; 43239; J2704; J2001

== ENCOUNTER → 2022-12-23 | Outpatient (CLI) | payer BC ==
--- NOTE | 2022-12-23 16:24 | MR ---
EXAMINATION TYPE: MR angio head wo/neck wo/w con DATE OF EXAM: 12/23/2022 12:51 PM CLINICAL INDICATION:Female, 52 years old with history of R42 DIZZINESS AND GIDDINESS; Dizziness, gidd iness, headaches. COMPARISON: MRI brain 04/02/2018 Technical: MRA brain: 2D and 3-D [id number] Axial with MIP and 3-D reconstruction. Performed on a separate w orkstation. MRA neck: Multiplanar, multi-sequence imaging as well as [id number] and phase was performed extra cranial vasculature of the neck. 3-D reformatted images and maximum intensity projection reformatted images were submitted for evaluation, these are performed on a separate workstation. IV Contrast: 11 cc Gadavist Findings: Vertebral arteries: The vertebral arteries are patent. Vertebral arteries are: Codominant. Basilar artery: The basilar artery is intact. The basilar artery bifurcation is normal. Internal Carotid arteries: The cervical, petrous, cavernous and supraclinoid segments are normal. KRISS: Patent with no evidence of aneurysm. ACOM: Present without evidence of aneurysm. MCA: Patent with no evidence of aneurysm. EDGE KITTER: Patent with no evidence of aneurysm. PCOM: Hypoplastic bilaterally. RIGHT CAROTID SYSTEM: The common carotid artery is patent. The carotid bifurcations demonstrates no e vidence for hemodynamically significant stenosis. The internal carotid artery is patent. LEFT CAROTID SYSTEM: The common carotid artery is patent. The carotid bifurcations demonstrates no e vidence for hemodynamically significant stenosis. The internal carotid artery is patent. The origins of the great vessels and vertebral arteries appear unremarkable. The vertebral arteries a re codominant. IMPRESSION: 1. No evidence of intracranial aneurysm or significant stenosis. 2. No evidence of significant stenosis at the carotid bifurcations. The carotid and vertebral arteri es are patent. 3. No evidence aneurysm.
== END | disposition home or self-care (01) ==
LOC: RADMRIMAIN 11:41
PROVIDERS: ATTEND Otolaryngology
DX: H93.A2 Pulsatile tinnitus, left ear (principal); R42 Dizziness and giddiness; R51.9 Headache, unspecified
CPT/HCPCS: 70544; 70549; A9585

== ENCOUNTER → 2022-12-26 | Outpatient (CLI) | payer BC ==
--- NOTE | 2022-12-26 23:21 | MR ---
EXAMINATION TYPE: MR brain and iac wo/w con DATE OF EXAM: 12/26/2022 COMPARISON: Prior MRI brain April 02, 2018 HISTORY: Ringing in ears, headaches, dizziness, bilateral hearing loss. TECHNIQUE: Multiplanar, multisequence images of the brain and brainstem and internal auditory canals are all per formed without and with IV contrast, utilizing 12 mL intravenous Gadavist . FINDINGS: Diffusion weighted images demonstrate no evidence of a recent infarct or other diffusion ab normality. The ventricular system and cisternal spaces are normal in size and appearance. The brain volume is age appropriate. Persistent curvilinear area of increased T2 signal involving the left insu la on axial image 15 not significantly changed from prior. A few scattered additional punctate lesion s of T2 hyperintensity are seen on current study throughout the white matter. Midline structures demonstrate normal morphology. The craniocervical junction appears within normal limits. Post contrast images demonstrate no abnormal enhancement. The dural venous sinuses appear pa tent. The visualized sinuses are clear and the globes are intact. No suspicious increased fluid signal involving the mastoid air cells bilaterally. The vestibulocochle ar Complexes are symmetric and felt within normal limits. No abnormal enhancing cerebellopontine angl e mass is identified bilaterally. IMPRESSION: Mild to minimal nonspecific white matter changes redemonstrated with slight interval prog ression from 2018 MRI. Finding most likely on basis of product of chronic small vessel ischemic mcbride e. No suspicious findings seen to account for patient's symptoms of dizziness and hearing loss and ri nging in ears
== END | disposition home or self-care (01) ==
LOC: RADMRIMAIN 16:57
PROVIDERS: ATTEND Otolaryngology
DX: R42 Dizziness and giddiness (principal); H93.A2 Pulsatile tinnitus, left ear; H93.13 Tinnitus, bilateral; H91.93 Unspecified hearing loss, bilateral; R90.82 White matter disease, unspecified
CPT/HCPCS: 70553; A9585

== ENCOUNTER → 2023-08-21 | Outpatient (CLI) | payer BC ==
--- NOTE | 2023-08-25 10:28 | US ---
EXAMINATION TYPE: US arterial LE single level DATE OF EXAM: 08/21/2023 8:45 AM CLINICAL INDICATION: Female, 52 years old with history of I73.9 PERIPHERAL VASCULAR DISEASE, UNSPECIF IED; Diabetic patient with left big toe amputated and right 5th digit amputated. History of: Smoker: previous years ago Hypertension: y Diabetic: y Hyperlipidemia: n TIA/CVA: n Previous Vascular Surgery: n CAD: n VA: n Vascular Ulcers: n Claudication: n Gangrene: n Doppler Waveforms: Right: Multiphasic Left: Multiphasic Right Brachial Pressure: 188, repeated at 194 Left Brachial Pressure: 164 Ankle-Brachial Indices: Right: 1.0 Left: CNO (Vessel hardening > 1.4; Normal 0.9 - 1.4, Moderate 0.7 - 0.9, Severe 0.5-0.7) Toe Brachial Indices: Right: 0.6 Left: 0 Informed patient of high BP and offered her to be seen in ER, she declined, felt fine. She states h er BP can get high and drop, so I asked her to reach out her physician. IMPRESSION: Poorly controlled hypertension. Normal right DAVEY. Left PT and DP cannot be occluded indicating dense calcific atherosclerosis.
== END | disposition home or self-care (01) ==
LOC: RADUSWWP 08:18
PROVIDERS: ATTEND Family Medicine
DX: I10 Essential (primary) hypertension (principal); I73.9 Peripheral vascular disease, unspecified; E11.51 Type 2 diabetes mellitus with diabetic peripheral angiopathy without gangrene; Z89.422 Acquired absence of other left toe(s); Z87.891 Personal history of nicotine dependence
CPT/HCPCS: 93922

== ENCOUNTER → 2024-02-21 | Outpatient (CLI) | payer BC ==
[~2024-02-21] MED LIST changes: -LACTATED RINGERS 1,000 ML IV SCH; -LIDOCAINE 1% (10MG/ML) FOR IV START INTRADERMA PRN; +REGADENOSON 0.4 MG/5 ML SYRINGE IV PRN
--- NOTE | 2024-02-21 10:19 | CA ---
Lexiscan Nuclear Stress Test Report Name: Saloni Salinas Exam Date: 02/21/2024 09:26 Exam Location: [facility] Ht (in): 66 Wt (lb): 260 BSA: 2.24 Ordering Phys: Shari Oglesby MD Referring Phys: SHARI OGLESBY Technologist: Oscar Garrett Age: 53 Gender: F : 1970 Procedure CPT: Indications: I20.0 unstable angina ICD-10 Codes: Patient History: CHEST PAIN, DIFFICULTY IN BREATHING, PALPITATIONS, HTN, DIABETES, HYPERCHOLESTEROLEMIA, FAMILY HX OF HEART DISEASE, PRIOR SMOKER, ASTHMA Medications: Meds past 24 hrs: Pretest Chest Pain: STRESS TEST Lexiscan Protocol Exercise Duration (min:sec): 01:[address] Depressions (mm): Angina Score: Conner Score: Resting HR (bpm): 86 Peak HR (bpm): 97 Resting BP (mmHg): 160 / 92 Peak BP (mmHg): 206 / 85 MPHR: 166 Target HR: 141 % MPHR: 58 METS: 1.0 Total Dose: Peak Dose: Atropine: Double Product: BP Response: Stress Termination: INFUSION COMPLETE Stress Symptoms: NO SYMPTOMS Stress Summary: ECG ANALYSIS Resting ECG: Stress ECG: CONCLUSIONS Baseline EKG revealed a normal sinus rhythm with poor R-wave progression over the precordial leads. With Lexiscan administration, the heart rate went up from 87-95 bpm and the blood pressure changed from 160/92 to 180/82. Patient did not have significant symptoms. EKG did not reveal any new ST segment changes. Rare isolated PVCs were noted. This is a unremarkable Lexiscan stress test by EKG criteria. The nuclear scan results will be reported by the radiologist Dr. Ancelmo Phillips MD (Electronically Signed) Final Date: 21 February 2024 10:18
--- NOTE | 2024-02-22 05:18 | NM ---
EXAMINATION TYPE: NM stress lexiscan cardiolite DATE OF EXAM: 02/21/2024 COMPARISON: NONE CLINICAL INDICATION: Female, 53 years old with history of I20.0 UNSTABLE ANGINA; chest pain and diffi culty breathing. History of hypertension and diabetes and hypercholesterolemia and asthma. TECHNIQUE: After the intravenous administration of 8.0 mCi Tc 99m Sestamibi - Cardiolite resting SPE CT images acquired 45 minutes post injection. The patient received 0.4mg Lexiscan, 25.3 mCi Tc 99m Sestamibi - Stress images obtained [address] injection FINDINGS: Review of stress and rest SPECT images demonstrates some diminished uptake in the medial wall on stre ss and rest images which could reflect old infarct versus artifact. Polar maps suggest diminished rad iotracer uptake on stress images versus rest images in the lateral wall of this is less well apprecia aleena on the raw data images. Gated analysis shows satisfactory wall motion with an estimated left naif tricular ejection fraction of 54 %. IMPRESSION: No convincing scintigraphic evidence for reversible ischemia. [facility], , 02/22/2024 5:15 AM
== END | disposition home or self-care (01) ==
LOC: RADNMMAIN 07:44
PROVIDERS: ATTEND Family Medicine
CPT/HCPCS: 78452; 93017

== ENCOUNTER → 2024-08-27 | Outpatient (CLI) | payer BC ==
--- NOTE | 2024-08-27 15:49 | XR ---
EXAMINATION TYPE: XR foot complete LT DATE OF EXAM: 08/27/2024 2:57 PM COMPARISON: 02/03/2013 CLINICAL INDICATION: Female, 53 years old with history of L03.032,M20.42, M79.672; PHH, pain. Blister /infection under the second digit. TECHNIQUE: 3 views FINDINGS: Interval amputation of the great toe at the level of the metatarsal head. There are hammert oes limiting the evaluation. Pes planus. Moderate-sized plantar heel spur. Small posterior calcaneal spur. Vascular calcification suggesting underlying diabetes and/or chronic kidney disease. There is e xcessive bony overlap of the toes on the lateral view due to the hammertoes. No obvious lytic destruc tion is seen at this time. Second MTP joint subluxation noted. Type II versus type III accessory olga cular redemonstrated. IMPRESSION: 1. Limited assessment of the toes due to hammertoes and excessive bony overlap on the lateral view. N o leroy lytic destruction to clearly indicate osteomyelitis at this time. Short interval follow-up if persistent concern. 2. Interval amputation of the great toe and interval development of a subluxation at the second MTP j oint. 3. Pes planus along with calcaneal heel spurs. [facility], , 08/27/2024 3:46 PM
== END | disposition home or self-care (01) ==
LOC: RADXRMAIN 14:36
PROVIDERS: ATTEND Podiatrist Primary Podiatric Medicine
DX: M20.42 Other hammer toe(s) (acquired), left foot (principal); L03.032 Cellulitis of left toe; M21.42 Flat foot [pes planus] (acquired), left foot; M77.32 Calcaneal spur, left foot